=== PATIENT | male | born 1960 | race Caucasian/White ===

== ENCOUNTER 2018-06-14 09:50 | Inpatient (IN) | payer SELFPAY ==
[2018-06-14] VITALS (32 sets, daily range): BP systolic 66–149; BP diastolic 47–98; PULSE 84–151; RESP 18–27; TEMP 36.3–37.4; O2SAT 94–99; BMI 50.0; BMI 35.8
--- NOTE | 2018-06-14 10:01 | EKG12_ITS ---
Test Reason : SOB Blood Pressure : / mmHG Vent. Rate : 163 BPM Atrial Rate : 170 BPM P-R Int : 000 ms QRS Dur : 102 ms QT Int : 306 ms P-R-T Axes : 000 -09 111 degrees QTc Int : 503 ms Atrial fibrillation with rapid ventricular response with premature ventricular or aberrantly conducte d complexes Cannot rule out Inferior infarct , age undetermined Anterior infarct , age undetermined Abnormal ECG Confirmed by CAMERON CONN, ZEYAD ([id number]), slot editor ANA MARIA FOX ([id number] on 06/16/2018 3:22:01 PM Referred By: Elias Stein Confirmed By:ZEYAD BARNES MD
--- NOTE | 2018-06-14 10:10 | ED.VISSUMM ---
- ER Visit Summary Date of Service: 06/14/18 Chief Complaint: Shortness of breath History of Present Illness: The patient is a 57 M history of CAD with 4 cardiac stents. Prior [place]. Insulin-dependent diabetes but is out of insulin. History of hypertension. Patient states the last 3 days he has had increasing shortness of breath and swelling of his lower extremities. Subjective fever and chills. Denies any nausea, vomiting or diarrhea. No melena. He currently has no primary care physician locally is supposed to be on a host of medications and is on none of them. States he is never been in A. fib before. Physical Examination: Middle-aged male. Vital signs 149/90. Heart rate of 151 and irregular. On the monitor when I am in the room his heart rates 1. Pulse ox 96% on room air no hypoxia. H EENT exam unremarkable. Neck nontender. No JVD. Lungs clear to auscultation bilaterally. Heart irregularly irregular rate of 161 no murmur. Cardiac exam consistent with A. fib RVR. Abdomen soft nontender. Mild edema. Patient moves all 4 extremities. Normal motor strength. He has 2+ pitting edema both lower extremities. Neurologically is awake and alert. With no focal motor deficits. Test Results: EKG A. fib RVR rate of 163. Chest x-ray shows cardiomegaly with CHF and bilateral pleural effusions. CBC shows a white count of 5. Hemoglobin 14. Low platelet count of 114,000. Lites unremarkable creatinine 1.47. PT/INR normal. Troponin slightly elevated 0.129. And TSH is elevated at 4.59. Emergency Department Course and Treatment: Patient had new onset A. fib RVR. Treatment Plan: Initially given IV Cardizem which is decreased his heart rate but it still above 120. He will be given a second dose of Cardizem and most likely be started on a Cardizem drip. He will also be given IV Lasix for his congestive heart failure. I have already spoken to the hospitalist about the PCU admission. Repeat exam patient is resting comfortably. Disposition: Admitted Impression: Acute dyspnea New onset A. fib RVR Acute congestive heart failure and bilateral pleural effusions. Thrombocytopenia. Abnormal troponin Elevated TSH needs further evaluation History of prior [place] with 4 cardiac stents. This note was generated with [employer] software. It may contain incorrect words, spelling, and punctuation that were not noted in review of the chart prior to signing ED Disposition - Plan for ED Patient: Chief Complaint: Shortness of Breath Referrals: NOT,DEFINED [NON-STAFF] -
--- NOTE | 2018-06-14 10:13 | ED.DCSUM_ITS ---
- ER Visit Summary Date of Service: 06/14/18 Chief Complaint: Shortness of breath History of Present Illness: The patient is a 57 M history of CAD with 4 cardiac stents. Prior [place]. Insulin-dependent diabetes but is out of insulin. History of hypertension. Patient states the last 3 days he has had increasing shortness of breath and swelling of his lower extremities. Subjective fever and chills. Denies any nausea, vomiting or diarrhea. No melena. He currently has no primary care physician locally is supposed to be on a host of medications and is on none of them. States he is never been in A. fib before. Physical Examination: Middle-aged male. Vital signs 149/90. Heart rate of 151 and irregular. On the monitor when I am in the room his heart rates 1. Pulse ox 96% on room air no hypoxia. H EENT exam unremarkable. Neck nontender. No JVD. Lungs clear to auscultation bilaterally. Heart irregularly irregular rate of 161 no murmur. Cardiac exam consistent with A. fib RVR. Abdomen soft nontender. Mild edema. Patient moves all 4 extremities. Normal motor stre ngth. He has 2+ pitting edema both lower extremities. Neurologically is awake and alert. With no focal motor deficits. Test Results: EKG A. fib RVR rate of 163. Chest x-ray shows cardiomegaly with CHF and bilateral pleural effusions. CBC shows a white count of 5. Hemoglobin 14. Low platelet count of 114,000. Lites unremarkable creatinine 1.47. PT/INR normal. Troponin slightly elevated 0.129. And TSH is elevated at 4.59. Emergency Department Course and Treatment: Patient had new onset A. fib RVR. Treatment Plan: Initially given IV Cardizem which is decreased his heart rate but it still above 120. He will be given a second dose of Cardizem and most likely be started on a Cardizem drip. He will also be given IV Lasix for his congestive heart failure. I have already spoken to the hospitalist about the PCU admission. Repeat exam patient is resting comfortably. Disposition: Admitted Impression: Acute dyspnea New onset A. fib RVR Acute congestive heart failure and bilateral pleural effusions. Thrombocytopenia. Abnormal troponin Elevated TSH needs further evaluation History of prior [place] with 4 cardiac stents. This note was generated with [employer] software. It may contain incorrect words, spelling, and punctuation that were not noted in review of the chart prior to signing ED Disposition - Plan for ED Patient: Chief Complaint: Shortness of Breath Referrals: NOT,DEFINED [NON-STAFF] -
--- NOTE | 2018-06-14 10:22 | ED.RN ---
pt states he is supposed to be on meds for dm and heart attack. does not know meds or doses. no current pcp.
[2018-06-14] MEDS: dilTIAZem 25 MG/5 ML Vial IV BOLUS (10:23)
[2018-06-14 10:25] LABS: Absolute Lymphocyte Count 0.64 X10^3/ul (0.83-4.51); Absolute Neutrophil Count 3.7 X10^3/uL (2.0-7.7); Basophil# 0.02 X10^3/uL; Basophil% 0.4 % (0-1); Eosinophil# 0.01 X10^3/uL; Eosinophils% 0.2 % (0-5); Hemoglobin 14.6 g/dl (13.0-16.5); Lymphocyte # 0.64 X10^3/ul (4.0); Lymphocyte % 12.9 % (19-41); Mean Corp Hgb Conc 33.2 g/gl (32-36); Mean Corpuscular Hgb 31.3 pg (27.0-32.0); Mean Corpuscular Volume 94.4 fL (80-94); Mean Platelet Vol. 9.5 fl (6.2-12.0); Monocyte# 0.62 X10^3/uL; Monocyte% 12.5 % (0-10); Neutrophil # 3.67 X10^3/uL (2.7-7.7); Neutrophil % 73.8 % (47-70); Platelet Count 114 K/mm3 (150-450); RBC Distribution Width SD 46.4 fl (35.1-43.9); Red Blood Count 4.66 M/mm3 (4.6-6.2)
[2018-06-14 10:27] LABS: POSITIVE COUNT NO; POSITIVE DIFFERENTIAL NO; POSITIVE MORPHOLOGY NO
[2018-06-14 10:30] LABS: International Normalized Ratio 1.2
--- NOTE | 2018-06-14 10:35 | RAD_ITS ---
STUDY: X-RAY CHEST REASON FOR EXAM: Male, 57 years old. Chest pain. TECHNIQUE: Single AP portable view of the chest. COMPARISON: None. FINDINGS: EKG electrodes are seen. A loop recorder device is seen overlying the medial left hemithorax. There are small bilateral pleural effusions with bibasilar atelectasis superimposed on CHF. There is borderline cardiomegaly. Normal mediastinum and aniceto. Normal visualized pulmonary arteries. Normal visualized aortic arch and descending thoracic aorta. Normal visualized thoracic spine. Normal visualized ribs, clavicles, and shoulders. There is no demonstrated abnormality of the visualized soft tissue structures of the upper abdomen. RAD/Chest 1 View (Portable) IMPRESSION: Small bilateral pleural effusions with bibasilar atelectasis superimposed on mild degree of CHF. Electronically Signed: Frantz Gaviria MD at 10:49 EST Tel [phone], Service support ,
[2018-06-14 10:46] LABS: Anion Gap 13 (5-15); BUN 18 mg/dL (7-18); BUN/Creat Ratio 12.2 RATIO (10-20); Calcium,Total 7.9 mg/dL (8.5-10.1); Chloride 97 mmol/L (98-107); Creatinine, Serum 1.47 mg/dL (0.70-1.30); EST Glomerular Filtration Rate 52 mL/min (>60); Est Glom Filt Rate - Afr Amer 63 mL/min (>60); Estimated Creatinine Clearance 50.03 ml/min; Glucose 154 mg/dL (74-106); Potassium 4.1 mmol/L (3.5-5.1); Sodium Level 135 mmol/L (136-145); Thyroid Stim Hormone (TSH) 4.59 uIU/mL (0.358-3.74)
[2018-06-14] MEDS: dilTIAZem 25 MG/5 ML Vial 20 MG IV BOLUS (11:08)
[2018-06-14] MEDS: Furosemide 40 MG/4 ML Vial IV ×3 (11:26→21:15)
--- NOTE | 2018-06-14 13:31 | ED.RN ---
PT HAD DARK STOOL SMALL AMOUNT, DR. SETH AWARE AND PCU NOTIFIED OF SAME.
--- NOTE | 2018-06-14 13:39 | ECHOCS_ITS ---
Reason For Study: CHF Procedure This was a 2D Doppler, Color Flow transthoracic echocardiogram. The study was technically difficult. Contrast injection was performed. Exam performed portable in patient room. Left Ventricle Severely dilated left ventricle. The estimated ejection fraction is 15 %. Unable to assess diastolic dysfunction due to arrhythmia. There is severe global hypokinesis of the left ventricle. Right Ventricle Normal RV size. Normal systolic function. Atria The left atrium is mildly enlarged. The right atrium is mildly enlarged. Mitral Valve Normal mitral valve. Moderate (2+) eccentric mitral valve insufficiency. Tricuspid Valve Normal tricuspid valve. Mild to moderate (1-2+) tricuspid valve insufficiency. Pulmonary artery systolic pressure is 29 mmHg. Aortic Valve Trisinus/trileaflet aortic valve. Pulmonic Valve Normal pulmonic valve. Great Vessels Normal aortic root. The pulmonary artery is normal size. Normal inferior vena cava. Pericardium/Pleural No pericardial effusion. Medication Definity0.5ml given slow IV push to enhance endocardial definition. MMode/2D Measurements & Calculations LVIDd: 6.3 cm IVSd: 1.1 cm Ao root diam: 3.3 cm LVIDs: 5.9 cm LVPWd: 1.1 cm RVDd: 5.2 cm FS: 6.5 % LAV(MOD-bp): 73.0 ml LVAd ap4: 47.6 cm2 SV(MOD-sp4): 34.4 ml LAV(MOD-bp) Indexed: 30.3 ml/m2 EDV(MOD-sp4): 191.8 ml LAV(MOD-sp2): 60.6 ml EDV(sp4-el): 200.8 ml LAV(MOD-sp4): 70.3 ml LVAs ap4: 41.9 cm2 ESV(MOD-sp4): 157.4 ml ESV(sp4-el): 160.4 ml EF(MOD-sp4): 17.9 % EF(sp4-el): 20.1 % SV(sp4-el): 40.4 ml LA A4 area: 22.6 cm2 LA dimension(2D): 4.8 cm RA A4 area: 21.4 cm2 Doppler Measurements & Calculations MV E max edouard: 102.1 cm/sec Ao V2 max: 102.1 cm/sec LV V1 max: 75.7 cm/sec Ao max P.3 mmHg LV V1 max P.4 mmHg Ao V2 mean: 75.1 cm/sec Ao mean P.6 mmHg Ao V2 VTI: 14.9 cm PA V2 max: 65.1 cm/sec TR max edouard: 256.4 cm/sec TR max P.3 mmHg Interpretation Summary Severely dilated left ventricle. The estimated ejection fraction is 15 %. Unable to assess diastolic dysfunction due to arrhythmia. The left atrium is mildly enlarged. The right atrium is mildly enlarged. Moderate (2+) eccentric mitral valve insufficiency. Ordering Physician: Elias Stein Referring Physician: Elias Stein Performed By: Marielos Torre, LONNIE, RVT
[2018-06-14 14:33] LABS: T4 Free Direct 1.08 ng/dL (0.76-1.46)
[2018-06-14] MEDS: dilTIAZem 25 MG/5 ML Vial 10 MG IV BOLUS (15:04)
[2018-06-14] MEDS: Lisinopril 10 MG Tablet PO (16:15)
[2018-06-14 17:10] LABS: Bedside Glucose 170 mg/dL (70-110)
--- NOTE | 2018-06-14 17:14 | PCM.CONS.C ---
Reason for Consult Date of Consultation: 06/14/18 Reason for Consultation: Evaluation of shortness of breath. Pedal edema. Irregular heartbeat. History of Present Illness: The patient is a 57 year old M with a history of hypertension, coronary artery disease status post previous myocardial infarction and status post previous stenting in [place] over 4 years ago. He says that he has not seen a physician since then. He had been fairly stable until he started noticing pedal edema as well as shortness of breath. He did not have any palpitations and denies any chest pain. He was also gaining weight and could not get any restful sleep at night. He presented to the emergency room was noted to be in atrial for ablation with a rapid ventricular response rate as well as pedal edema. He was admitted to the telemetry care unit after he received intravenous Cardizem for rate control. He has not noticed any previous episodes of hematemesis or hematochezia though he was noted to have dark brown stools in the emergency room. Cardiology was called to see him due to his previous history of coronary artery disease, mildly abnormal troponin, pedal edema, and atrial fibrillation. [] Past Medical History Allergies/Adverse Reactions: Allergies Penicillins [PCN] Allergy (Verified 06/14/18 10:19) Rash Home Medications: Ambulatory Orders Medication Instructions Recorded NK 06/14/18 Lives: Alone Smoking Status: Former smoker Alcohol: None Drugs: None Review of Systems - Review of Systems General: Reports: Fatigue, Weakness. Denies: Fever, Night Sweats HEENT: Denies: Vision Change Cardiovascular: Reports: Shortness of Breath, Shortness of Breath at Rest, Shortness of Breath with Exertion, Peripheral Edema. Denies: Chest Discomfort, Orthopnea, PND, Palpitations, Lightheadedness, Dizziness, Near Syncope, Syncope Respiratory: Denies: Cough, Sputum Production, Hemoptysis Gastrointestinal: Denies: Indigestion, Hematemesis, Hematochezia, Melena Genitourinary: Denies: Dysuria, Hematuria Muscoloskeletal: Denies: Myalgias Skin: Denies: Rash Neurological: Denies: Dizziness Psychiatric: Denies: Anxiety Hematologic/ Lymphatic: Denies: Lymph Node Enlargement Subjectve: Pleasant gentleman in no apparent distress. Sitting in bed. Objective: Vital Signs Temp Pulse Resp BP Pulse Ox 98.2 F 109 H 22 H 112/86 H 98 06/14/18 16:40 06/14/18 16:40 06/14/18 16:40 06/14/18 16:40 06/14/18 16:40 Oxygen Flow Rate (L/min) 2 Oxygen Delivery Method Nasal Cannula Weight: 310 lb Body Mass Index (BMI) 35.8 General: Awake, Alert, Oriented x 3, Obese HEENT: PERRL, EOMI, Sclera Non Icteric Oral: Moist Mucosa Neck: Supple, Good ROM, No Lymph Node Enlargement Lungs: Diminished Gamaliel Bases Cardiovascular: Irregular Rhythm Vascular: No Carotid Bruits, Normal Femoral Pulses, Normal Radial Pulses, Normal Dorsalis Pedal Pulse, Normal Posterior Tibial Pulses Abdomen: Bowel Sounds Present, Soft, Non Tender, No HSM, No Organomegaly Extremities: No Cyanosis, No Clubbing, Bilateral Edema +2 Musculoskeletal: No Erythema Skin: No Rashes Lymphatic: No Lymph Node Enlargement Neurological: No Focal Motor or Sensory Deficit Psych/Mental Status: Appropriate 06/14/18 10:12: WBC 5.0, RBC 4.66, Hgb 14.6, Hct 44.0, MCV 94.4 H, MCH 31.3, MCHC 33.2, RDW 14.0, RDW Differential 46.4 H, Plt Count 114 L, MPV 9.5, Immature Gran % (Auto) 0.200, Neut % (Auto) 73.8 H, Lymph % (Auto) 12.9 L, Camp % (Auto) 12.5 H, Eos % (Auto) 0.2, Baso % (Auto) 0.4, Absolute Neuts (auto) 3.7, Total Counted Not Reportable 06/14/18 10:12: Sodium 135 L, Potassium 4.1, Chloride 97 L, Carbon Dioxide 25.0, Anion Gap 13, BUN 18, Creatinine 1.47 H, Est GFR (MDRD) Af Amer 63, Est GFR (MDRD) Non-Af 52 L, BUN/Creatinine Ratio 12.2, Glucose 154 H, Calcium 7.9 L, Troponin I 0.129 H 06/14/18 10:12: PT 15.0 H, INR 1.2 06/14/18 14:04: Troponin I 0.133 H Rhythm: EKG: Atrial fibrillation with rapid ventricular response rate of 163 bpm ECHO: Pending Assessment/Plan 1. Atrial fibrillation Patient presents with atrial fibrillation the duration of which is not entirely clear at this particular time. He does have rapid ventricular response rate. The recommendation will be to start intravenous Cardizem for rate control Echocardiogram should be performed to assess his left ventricular function and guide therapy. He cannot be anticoagulated due to his heme positive stools. 2. Congestive heart failure-acute systolic He appears to have shortness of breath which is been fairly short standing associated with pedal edema. The above is consistent with acute congestive heart failure. My recommendation will be to diurese him aggressively and obtain an echocardiogram to assess his left ventricular function. He would ultimately need a beta-brayan and an JAMES inhibitor Depending on the findings of the above further recommendations will then be made. 3. Abnormal cardiac enzymes He does have mildly abnormal cardiac enzymes. I suspect the above is likely secondary to demand ischemia. We will eventually convert him to a beta-brayan Start high intensity statin Will have to hold off on aspirin as well as clopidogrel due to his apparent history of GI bleed Thank you for allowing me to participate in the care of your patient. Please don't hesitate to call if any issues arise
--- NOTE | 2018-06-14 17:18 | CON.PCM_ITS ---
Reason for Consult Date of Consultation: 06/14/18 Reason for Consultation: Evaluation of shortness of breath. Pedal edema. Irregular heartbeat. History of Present Illness: The patient is a 57 year old M with a history of hypertension, coronary artery disease status post previous myocardial infarction and status post previous stenting in [place] over 4 years ago. He says that he has not seen a physician since then. He had been fairly stable until he started noticing pedal edema as well as shortness of breath. He did not have any palpitations and denies any chest pain. He was also gaining weight and could not get any restful sleep at night. He presented to the emergency room was noted to be in atrial for ablation with a rapid ventricular response rate as well as pedal edema. He was admitted to the telemetry care unit after he received intravenous Cardizem for rate control. He has not noticed any previous episodes of hematemesis or hematochezia though he was noted to have dark brown stools in the emergency room. Cardiology was called to see him due to his previous history of coronary artery disease, mildly abnormal troponin, pedal edema, and atrial fibrillation. [] Past Medical History Allergies/Adverse Reactions: Allergies Penicillins [PCN] Allergy (Verified 06/14/18 10:19) Rash Home Medications: Ambulatory Orders Medication Instructions Recorded NK 06/14/18 Lives: Alone Smoking Status: Former smoker Alcohol: None Drugs: None Review of Systems - Review of Systems General: Reports: Fatigue, Weakness. Denies: Fever, Night Sweats HEENT: Denies: Vision Change Cardiovascular: Reports: Shortness of Breath, Shortness of Breath at Rest, Shortness of Breath with Exertion, Peripheral Edema. Denies: Chest Discomfort, Orthopnea, PND, Palpitations, Lightheadedness, Dizziness, Near Syncope, Syncope Respiratory: Denies: Cough, Sputum Production, Hemoptysis Gastrointestinal: Denies: Indigestion, Hematemesis, Hematochezia, Melena Genitourinary: Denies: Dysuria, Hematuria Muscoloskeletal: Denies: Myalgias Skin: Denies: Rash Neurological: Denies: Dizziness Psychiatric: Denies: Anxiety Hematologic/ Lymphatic: Denies: Lymph Node Enlargement Subjectve: Pleasant gentleman in no apparent distress. Sitting in bed. Objective: Vital Signs Temp Pulse Resp BP Pulse Ox 98.2 F 109 H 22 H 112/86 H 98 06/14/18 16:40 06/14/18 16:40 06/14/18 16:40 06/14/18 16:40 06/14/18 16:40 Oxygen Flow Rate (L/min) 2 Oxygen Delivery Method Nasal Cannula Weight: 310 lb Body Mass Index (BMI) 35.8 General: Awake, Alert, Oriented x 3, Obese HEENT: PERRL, EOMI, Sclera Non Icteric Oral: Moist Mucosa Neck: Supple, Good ROM, No Lymph Node Enlargement Lungs: Diminished Gamaliel Bases Cardiovascular: Irregular Rhythm Vascular: No Carotid Bruits, Normal Femoral Pulses, Normal Radial Pulses, Normal Dorsalis Pedal Pulse, Normal Posterior Tibial Pulses Abdomen: Bowel Sounds Present, Soft, Non Tender, No HSM, No Organomegaly Extremities: No Cyanosis, No Clubbing, Bilateral Edema +2 Musculoskeletal: No Erythema Skin: No Rashes Lymphatic: No Lymph Node Enlargement Neurological: No Focal Motor or Sensory Deficit Psych/Mental Status: Appropriate 06/14/18 10:12: WBC 5.0, RBC 4.66, Hgb 14.6, Hct 44.0, MCV 94.4 H, MCH 31.3, MCHC 33.2, RDW 14.0, RDW Differential 46.4 H, Plt Count 114 L, MPV 9.5, Immature Gran % (Auto) 0.200, Neut % (Auto) 73.8 H, Lymph % (Auto) 12.9 L, Dewitt % (Auto) 12.5 H, Eos % (Auto) 0.2, Baso % (Auto) 0.4, Absolute Neuts (auto) 3.7, Total Counted Not Reportable 06/14/18 10:12: Sodium 135 L, Potassium 4.1, Chloride 97 L, Carbon Dioxide 25.0, Anion Gap 13, BUN 18, Creatinine 1.47 H, Est GFR (MDRD) Af Amer 63, Est GFR (MDRD) Non-Af 52 L, BUN/Creatinine Ratio 12.2, Glucose 154 H, Calcium 7.9 L, Troponin I 0.129 H 06/14/18 10:12: PT 15.0 H, INR 1.2 06/14/18 14:04: Troponin I 0.133 H Rhythm: EKG: Atrial fibrillation with rapid ventricular response rate of 163 bpm ECHO: Pending Assessment/Plan 1. Atrial fibrillation * Patient presents with atrial fibrillation the duration of which is not entirely clear at this particular time. He does have rapid ventricular response rate. * The recommendation will be to start intravenous Cardizem for rate control * Echocardiogram should be performed to assess his left ventricular function and guide therapy. * He cannot be anticoagulated due to his heme positive stools. 2. Congestive heart failure-acute systolic * He appears to have shortness of breath which is been fairly short standing associated with pedal edema. The above is consistent with acute congestive heart failure. My recommendation will be to diurese him aggressively and obtain an echocardiogram to assess his left ventricular function. * He would ultimately need a beta-brayan and an JAMES inhibitor * Depending on the findings of the above further recommendations will then be made. 3. Abnormal cardiac enzymes * He does have mildly abnormal cardiac enzymes. I suspect the above is likely secondary to demand ischemia. * We will eventually convert him to a beta-brayan * Start high intensity statin * Will have to hold off on aspirin as well as clopidogrel due to his apparent history of GI bleed * Thank you for allowing me to participate in the care of your patient. Please don't hesitate to call if any issues arise
[2018-06-14] MEDS: Insulin Lispro 100 UNIT/ML INSULN.PEN SC ×2 (18:06→21:14)
--- NOTE | 2018-06-14 18:55 | PCM.HP.STD ---
Problem List (1) Shortness of breath Status: Acute (2) Heart palpitations Status: Acute History of Present Illness Date of Admission: 06/14/18 Chief Complaint: Palpitations, shortness of breath, edema The patient is a 57 year old M was seen in the emergency room at [facility] with a chief complaint of shortness of breath which has progressed over the last 3 days, this was accompanied by an irregular heartbeat and generalized swelling that he is noticed has increased over the last 2 months. Patient also stated that 3 days ago he had some chest discomfort which lasted approximately an hour but he was vague about what precipitated this chest discomfort. He stated that it was like a ache and it radiated into his right shoulder and right chest area. Patient has a past history of coronary artery disease and in 2006 he had 4 stents placed in [place]. Patient also has a history of an event recorder which was placed in 2007 but this was removed subsequently. He has not been compliant with follow-up medical care and has not seen a dining room busser in several years, is also not seen a general practitioner in several years-he states this is due to financial reasons. Patient has been living in [place] for the past 2 years, his [id number] was present at the time of my examination. Evaluation in the emergency room feel the patient to be in atrial fib with a rapid ventricular response at 151, patient's pulse ox on room air was 96%. Patient had +3 pitting edema to both lower extremities, he was alert and did not appear to be in severe distress. Chest x-ray was obtained which showed cardiomegaly and CHF with bilateral pleural effusions. Hemoglobin was normal, patient's white blood cell count was normal, platelet count was 114,000. Creatinine was elevated at 1.47, troponin was slightly elevated at 1.29. TSH was elevated at 4.59. EKG showed atrial fibrillation with a rapid ventricular response of 163 and no ischemic changes. She was given IV Cardizem for rate control in the emergency room, before he was admitted to the PCU today, patient had a melanotic stool which was positive for blood. Patient will be kept on IV Cardizem and be seen by cardiology, he will not be anticoagulated at this time and he will not receive aspirin. Patient's cardiac enzymes will be cycled, I will place him on IV Lasix, and JAMES inhibitor, and repeat his chest x-ray tomorrow. Past Medical History Allergies Penicillins [PCN] Allergy (Verified 06/14/18 10:19) Rash Home Medications: Ambulatory Orders Medication Instructions Recorded NK 06/14/18 Surgical History: appendectomy, tonsillectomy, - - Coronary artery stent placement 2006, left knee reconstruction secondary to injury from football Psychiatric History: No pertinent psych hx Lives: With Family Smoking Status: Former smoker Tobacco Use: Non-smoker Alcohol: Occasional Drugs: None - *Family History Maternal History Items: Cancer - Stomach cancer, Diabetes Paternal History Items: Heart Disease - [place] age 58 Review of Systems Constitutional: Reports: Malaise, Weakness, Weight Change, Fatigue. Denies: Anorexia, Chills, Fever, Night Sweats Eyes: Denies: Blurred vision, Cataracts, Conjunctivae Inflammation, Double vision, Drainage HEENT: Denies: Difficulty Swallowing, Dysphasia, Ear Pain, Eye Pain, Head Aches, Hearing Changes, Nasal bleeding, Nasal Congestion, Post Nasal Drip Cardiovascular: Reports: Chest Pain - History of chest pain 3 days ago as outlined in chief complaint, Edema - Increased edema over the last 2 months, Orthopnea, Palpitations, Paroxysmal Noc. Dyspnea. Denies: Claudication, Chest Pressure, Chest Tightness Respiratory: Reports: Shortness of Breath, Shortness of breath at rest, Shortness of breath upon exertion. Denies: Cough, Hemoptysis, Pleuritic Pain, Sputum production, Wheezing Gastrointestinal: Denies: Abdominal Pain, Constipation, Diarrhea, Hematemesis, Hematochezia, Nausea, Melena, Vomiting Genitourinary: Denies: Dysuria, Frequency, Hematuria, Hesitancy, Incontinence, Nocturia, Urgency Musculoskeletal: Denies: Back Pain, Foot Pain, Hand Pain, Joint Pain, Joint stiffness, Joint swelling, Joint Tenderness, Leg Pain Skin: Denies: Dryness, Jaundice, Pruritis, Rash Neurological: Denies: Blurred vision, Double vision, Change in Speech, Slurred speech, Difficulty swallowing, Focal weakness, Headaches, Numbness, Tingling Psychiatric: Denies: Anxiety, Depression, Homicidal Ideations, Suicidal Ideations Endocrine: Denies: Change in Body Habitus, Heat/ Cold Intolerance, Polydipsia, Polyuria Hematologic/ Lymphatic: Denies: Adenopathy, Anemia, Easy Bruising, Easy Bleeding, Petechiae, Purpura VTE Information - Inpt Only VTE Present on Admission: No VTE Mechan Device Prophylaxis: SCD's VTE Pharm Prophylaxis ordered?: No Reason prophylaxis not ordered:: Medical Contraindication - Melanotic stools Patient Problems: Active and Suspected Problems Shortness of breath (Acute) Heart palpitations (Acute) - Physical Exam General: Alert, Oriented x3, Cooperative, No apparent distress, Well developed, Well nourished HEENT: Atraumatic, PERRLA, EOMI, Normocephalic Oral: Moist Mucosa Neck: Supple, No JVD, Negative Carotid Bruits, No Nuchal Rigidity, Trachea Midline, Thyroid Normal Size and Texture Lungs: No rhonchi, No rales, Diminished - Diminished breath sounds bilaterally Cardiovascular: No murmurs, PMI Normal, Irregular Rate, No rub noted Abdomen: Bowel Sounds Present, Soft, Non Tender, Non-Distended, Obese Extremities: Capillary Refill Less than 3 Seconds, Edema - +3 mm pitting edema is noted over both lower legs Skin: No rashes, No breakdown Musculoskeletal: No Tenderness to Palpation of Joints or Extremities Neurological: Cranial nerves II-XII grossly intact, Neuro grossly intact, Muscle tone normal, Sensory exam intact to light touch and pain, Coordination normal Psych/Mental Status: Normal Affect, Appropriate, Alert and oriented to time, place, person, mood and affect Vital Signs Temp Pulse Resp BP Pulse Ox 98.3 F 98 23 H 100/67 96 06/14/18 18:40 06/14/18 18:40 06/14/18 18:40 06/14/18 18:40 06/14/18 18:40 Oxygen Flow Rate (L/min) 2 Oxygen Delivery Method Nasal Cannula Weight: 140.614 kg Body Mass Index (BMI) 35.8 Intake and Output for Last 24 Hours 06/12/18 06/13/18 06/14/18 23:59 23:59 23:59 Intake Total 470 / 470 Output Total 200 / 200 Balance 270 / 270 Microbiology Past 72 Hours 06/14/18 13:30 Stool Occult Blood (CONG) - Final Stool Occult Blood Positive Laboratory Tests Past 24 Hrs 06/14/18 06/14/18 06/14/18 10:12 10:12 10:12 WBC 5.0 RBC 4.66 Hgb 14.6 Hct 44.0 MCV 94.4 H MCH 31.3 MCHC 33.2 RDW 14.0 RDW Differential 46.4 H Plt Count 114 L MPV 9.5 Immature Gran % (Auto) 0.200 Neut % (Auto) 73.8 H Lymph % (Auto) 12.9 L Ray % (Auto) 12.5 H Eos % (Auto) 0.2 Baso % (Auto) 0.4 Absolute Neuts (auto) 3.7 Absolute Lymphs (auto) 0.64 L Total Counted Not Reportable PT 15.0 H INR 1.2 Sodium 135 L Potassium 4.1 Chloride 97 L Carbon Dioxide 25.0 Anion Gap 13 BUN 18 Creatinine 1.47 H Estim Creat Clear Calc 50.03 Est GFR (MDRD) Af Amer 63 Est GFR (MDRD) Non-Af 52 L BUN/Creatinine Ratio 12.2 Glucose 154 H Calcium 7.9 L Troponin I 0.129 H TSH 4.59 H Free T4 Free T3 pg/dL 06/14/18 06/14/18 14:04 16:40 WBC RBC Hgb Hct MCV MCH MCHC RDW RDW Differential Plt Count MPV Immature Gran % (Auto) Neut % (Auto) Lymph % (Auto) Ray % (Auto) Eos % (Auto) Baso % (Auto) Absolute Neuts (auto) Absolute Lymphs (auto) Total Counted PT INR Sodium Potassium Chloride Carbon Dioxide Anion Gap BUN Creatinine Estim Creat Clear Calc Est GFR (MDRD) Af Amer Est GFR (MDRD) Non-Af BUN/Creatinine Ratio Glucose Calcium Troponin I 0.133 H 0.138 H TSH Free T4 1.08 Free T3 pg/dL 2.0 L POC Glucose 06/14/18 17:06 POC Glucose 170 H Assessment/Plan All Active Problems Shortness of breath (Acute) Heart palpitations (Acute) #1 new onset atrial fibrillation with rapid ventricular response-patient will be admitted to PCU, he will be maintained on a Cardizem drip, he would be seen by cardiology, he will be monitored. Patient will not undergo anticoagulation at this time due to melanotic stools #2 acute systolic congestive heart failure-patient's son who I talked with by phone states that the patient has had impaired pumping function before but he would not give me a percentage, patient will have an echocardiogram tomorrow. I contacted his former dining room busser office but he has not seen his dining room busser in 11 years, they were supposed to be forwarding information to PCU however this will probably of minimal use. #3 melena-suspect upper GI bleed, patient takes aspirin 325 a day, it is the only medication currently takes. Patient will be maintained on a PPI, he will probably require an EGD or an upper GI during this admission. H&H will be rechecked #4 atherosclerotic heart disease-again patient has not been taking any medications except for aspirin over the last 2 years. He may require cardiac catheterization but due to his melena, the procedure cannot be undertaken at this time. #5 elevated troponins-possibly non-STEMI type II #6 noncompliance with medical regimen-I stressed to the patient that he must remain on medications due to his heart disease and diabetes, he seems to understand this #7 type 2 diabetes-patient was on metformin in the past, he has never been on insulin, will monitor his blood sugars and administer insulin as required #8 chronic kidney disease stage III probably secondary to type 2 diabetes, patient's BMP will be rechecked tomorrow #9 elevated TSH-significance is unknown, patient's T3 and T4 will be checked I discussed his medical condition with his son by phone and his [id number] who was present at the time of my examination today. Code Visit Inpatient E&M: 33270 Init Hosp L3
--- NOTE | 2018-06-14 19:01 | HP.PCM_ITS ---
Problem List (1) Shortness of breath Status: Acute (2) Heart palpitations Status: Acute History of Present Illness Date of Admission: 06/14/18 Chief Complaint: Palpitations, shortness of breath, edema The patient is a 57 year old M was seen in the emergency room at [facility] with a chief complaint of shortness of breath which has progressed over the last 3 days, this was accompanied by an irregular heartbeat and generalized swelling that he is noticed has increased over the last 2 months. Patient also stated that 3 days ago he had some chest discomfort which lasted approximately an hour but he was vague about what precipitated this chest discomfort. He stated that it was like a ache and it radiated into his right shoulder and right chest area. Patient has a past history of coronary artery disease and in 2006 he had 4 stents placed in [place]. Patient also has a history of an event recorder which was placed in 2007 but this was removed subsequently. He has not been compliant with follow-up medical care and has not seen a freight car loader in several years, is also not seen a general practitioner in several years-he states this is due to financial reasons. Patient has been living in [place] for the past 2 years, his [id number] was present at the time of my examination. Evaluation in the emergency room feel the patient to be in atrial fib with a rapid ventricular response at 151, patient's pulse ox on room air was 96%. Patient had +3 pitting edema to both lower extremities, he was alert and did not appear to be in severe distress. Chest x-ray was obtained which showed cardiomegaly and CHF with bilateral pleural effusions. Hemoglobin was normal, patient's white blood cell count was normal, platelet count was 114,000. Creatinine was elevated at 1.47, troponin was slightly elevated at 1.29. TSH was elevated at 4.59. EKG showed atrial fibrillation with a rapid ventricular response of 163 and no ischemic changes. She was given IV Cardizem for rate control in the emergency room, before he was admitted to the PCU today, patient had a melanotic stool which was positive for blood. Patient will be kept on IV Cardizem and be seen by cardiology, he will not be anticoagulated at this time and he will not receive aspirin. Patient's cardiac enzymes will be cycled, I will place him on IV Lasix, and JAMES inhibitor, and repeat his chest x-ray tomorrow. Past Medical History Allergies Penicillins [PCN] Allergy (Verified 06/14/18 10:19) Rash Home Medications: Ambulatory Orders Medication Instructions Recorded NK 06/14/18 Surgical History: appendectomy, tonsillectomy, - - Coronary artery stent placement 2006, left knee reconstruction secondary to injury from football Psychiatric History: No pertinent psych hx Lives: With Family Smoking Status: Former smoker Tobacco Use: Non-smoker Alcohol: Occasional Drugs: None - *Family History Maternal History Items: Cancer - Stomach cancer, Diabetes Paternal History Items: Heart Disease - [place] age 58 Review of Systems Constitutional: Reports: Malaise, Weakness, Weight Change, Fatigue. Denies: Anorexia, Chills, Fever, Night Sweats Eyes: Denies: Blurred vision, Cataracts, Conjunctivae Inflammation, Double vision, Drainage HEENT: Denies: Difficulty Swallowing, Dysphasia, Ear Pain, Eye Pain, Head Aches, Hearing Changes, Nasal bleeding, Nasal Congestion, Post Nasal Drip Cardiovascular: Reports: Chest Pain - History of chest pain 3 days ago as outlined in chief complaint, Edema - Increased edema over the last 2 months, Orthopnea, Palpitations, Paroxysmal Noc. Dyspnea. Denies: Claudication, Chest Pressure, Chest Tightness Respiratory: Reports: Shortness of Breath, Shortness of breath at rest, Shortness of breath upon exertion. Denies: Cough, Hemoptysis, Pleuritic Pain, Sputum production, Wheezing Gastrointestinal: Denies: Abdominal Pain, Constipation, Diarrhea, Hematemesis, Hematochezia, Nausea, Melena, Vomiting Genitourinary: Denies: Dysuria, Frequency, Hematuria, Hesitancy, Incontinence, Nocturia, Urgency Musculoskeletal: Denies: Back Pain, Foot Pain, Hand Pain, Joint Pain, Joint stiffness, Joint swelling, Joint Tenderness, Leg Pain Skin: Denies: Dryness, Jaundice, Pruritis, Rash Neurological: Denies: Blurred vision, Double vision, Change in Speech, Slurred speech, Difficulty swallowing, Focal weakness, Headaches, Numbness, Tingling Psychiatric: Denies: Anxiety, Depression, Homicidal Ideations, Suicidal Ideations Endocrine: Denies: Change in Body Habitus, Heat/ Cold Intolerance, Polydipsia, Polyuria Hematologic/ Lymphatic: Denies: Adenopathy, Anemia, Easy Bruising, Easy Bleeding, Petechiae, Purpura VTE Information - Inpt Only VTE Present on Admission: No VTE Mechan Device Prophylaxis: SCD's VTE Pharm Prophylaxis ordered?: No Reason prophylaxis not ordered:: Medical Contraindication - Melanotic stools Patient Problems: Active and Suspected Problems Shortness of breath (Acute) Heart palpitations (Acute) - Physical Exam General: Alert, Oriented x3, Cooperative, No apparent distress, Well developed, Well nourished HEENT: Atraumatic, PERRLA, EOMI, Normocephalic Oral: Moist Mucosa Neck: Supple, No JVD, Negative Carotid Bruits, No Nuchal Rigidity, Trachea Midline, Thyroid Normal Size and Texture Lungs: No rhonchi, No rales, Diminished - Diminished breath sounds bilaterally Cardiovascular: No murmurs, PMI Normal, Irregular Rate, No rub noted Abdomen: Bowel Sounds Present, Soft, Non Tender, Non-Distended, Obese Extremities: Capillary Refill Less than 3 Seconds, Edema - +3 mm pitting edema is noted over both lower legs Skin: No rashes, No breakdown Musculoskeletal: No Tenderness to Palpation of Joints or Extremities Neurological: Cranial nerves II-XII grossly intact, Neuro grossly intact, Muscle tone normal, Sensory exam intact to light touch and pain, Coordination normal Psych/Mental Status: Normal Affect, Appropriate, Alert and oriented to time, place, person, mood and affect Vital Signs Temp Pulse Resp BP Pulse Ox 98.3 F 98 23 H 100/67 96 06/14/18 18:40 06/14/18 18:40 06/14/18 18:40 06/14/18 18:40 06/14/18 18:40 Oxygen Flow Rate (L/min) 2 Oxygen Delivery Method Nasal Cannula Weight: 140.614 kg Body Mass Index (BMI) 35.8 Intake and Output for Last 24 Hours 06/12/18 06/13/18 06/14/18 23:59 23:59 23:59 Intake Total 470 / 470 Output Total 200 / 200 Balance 270 / 270 Microbiology Past 72 Hours 06/14/18 13:30 Stool Occult Blood (CONG) - Final Stool Occult Blood Positive Laboratory Tests Past 24 Hrs 06/14/18 06/14/18 06/14/18 10:12 10:12 10:12 WBC 5.0 RBC 4.66 Hgb 14.6 Hct 44.0 MCV 94.4 H MCH 31.3 MCHC 33.2 RDW 14.0 RDW Differential 46.4 H Plt Count 114 L MPV 9.5 Immature Gran % (Auto) 0.200 Neut % (Auto) 73.8 H Lymph % (Auto) 12.9 L [facility] % (Auto) 12.5 H Eos % (Auto) 0.2 Baso % (Auto) 0.4 Absolute Neuts (auto) 3.7 Absolute Lymphs (auto) 0.64 L Total Counted Not Reportable PT 15.0 H INR 1.2 Sodium 135 L Potassium 4.1 Chloride 97 L Carbon Dioxide 25.0 Anion Gap 13 BUN 18 Creatinine 1.47 H Estim Creat Clear Calc 50.03 Est GFR (MDRD) Af Amer 63 Est GFR (MDRD) Non-Af 52 L BUN/Creatinine Ratio 12.2 Glucose 154 H Calcium 7.9 L Troponin I 0.129 H TSH 4.59 H Free T4 Free T3 pg/dL 06/14/18 06/14/18 14:04 16:40 WBC RBC Hgb Hct MCV MCH MCHC RDW RDW Differential Plt Count MPV Immature Gran % (Auto) Neut % (Auto) Lymph % (Auto) [facility] % (Auto) Eos % (Auto) Baso % (Auto) Absolute Neuts (auto) Absolute Lymphs (auto) Total Counted PT INR Sodium Potassium Chloride Carbon Dioxide Anion Gap BUN Creatinine Estim Creat Clear Calc Est GFR (MDRD) Af Amer Est GFR (MDRD) Non-Af BUN/Creatinine Ratio Glucose Calcium Troponin I 0.133 H 0.138 H TSH Free T4 1.08 Free T3 pg/dL 2.0 L POC Glucose 06/14/18 17:06 POC Glucose 170 H Assessment/Plan All Active Problems Shortness of breath (Acute) Heart palpitations (Acute) #1 new onset atrial fibrillation with rapid ventricular response-patient will be admitted to PCU, he will be maintained on a Cardizem drip, he would be seen by cardiology, he will be monitored. Patient will not undergo anticoagulation at this time due to melanotic stools #2 acute systolic congestive heart failure-patient's son who I talked with by phone states that the patient has had impaired pumping function before but he would not give me a percentage, patient will have an echocardiogram tomorrow. I contacted his former freight car loader office but he has not seen his freight car loader in 11 years, they were supposed to be forwarding information to PCU however this will probably of minimal use. #3 melena-suspect upper GI bleed, patient takes aspirin 325 a day, it is the only medication currently takes. Patient will be maintained on a PPI, he will probably require an EGD or an upper GI during this admission. H&H will be rechecked #4 atherosclerotic heart disease-again patient has not been taking any medications except for aspirin over the last 2 years. He may require cardiac catheterization but due to his melena, the procedure cannot be undertaken at this time. #5 elevated troponins-possibly non-STEMI type II #6 noncompliance with medical regimen-I stressed to the patient that he must remain on medications due to his heart disease and diabetes, he seems to understand this #7 type 2 diabetes-patient was on metformin in the past, he has never been on insulin, will monitor his blood sugars and administer insulin as required #8 chronic kidney disease stage III probably secondary to type 2 diabetes, patient's BMP will be rechecked tomorrow #9 elevated TSH-significance is unknown, patient's T3 and T4 will be checked I discussed his medical condition with his son by phone and his [id number] who was present at the time of my examination today. Code Visit Inpatient E&M: 26755 Init Hosp L3
[2018-06-14] MEDS: Atorvastatin Calcium 40 MG Tablet PO (21:15)
[2018-06-14 22:15] LABS: Bedside Glucose 200 mg/dL (70-110)
[2018-06-14 22:33] LABS: Hematocrit 39.5 % (40-54); Hemoglobin 13.2 g/dl (13.0-16.5)
[2018-06-14 23:08] LABS: Magnesium 1.6 mg/dL (1.6-2.6)
[2018-06-15] VITALS (43 sets, daily range): BP systolic 63–129; BP diastolic 47–74; PULSE 63–148; RESP 16–28; TEMP 35.2–37; O2SAT 89–98
[2018-06-15] MEDS: dilTIAZem 60 MG Tablet PO (05:50)
--- NOTE | 2018-06-15 05:55 | RAD_ITS ---
STUDY: X-RAY CHEST REASON FOR EXAM: Male, 57 years old. CHF TECHNIQUE: 1 view COMPARISON: June 14, 2018 FINDINGS: There continues to be an implantable loop recorder over the left hemithorax. There is cardiomegaly with congestive failure, bilateral pleural effusions and compressive atelectatic changes in the lung bases. There has not been much change since yesterday's study.. Normal visualized thoracic spine. Normal visualized ribs, clavicles, and shoulders. There is no demonstrated abnormality of the visualized soft tissue structures of the upper abdomen. RAD/Chest 1 View (Portable) IMPRESSION: Cardiomegaly with congestive failure, bilateral pleural effusions and compressive atelectatic changes in the lung bases Electronically Signed: Ihsan Mccabe MD at 3:36 EST Tel , Service support ,
[2018-06-15 06:33] LABS: Hematocrit 40.1 % (40-54); Hemoglobin 13.2 g/dl (13.0-16.5)
[2018-06-15 06:41] LABS: Anion Gap 12 (5-15); BUN 25 mg/dL (7-18); BUN/Creat Ratio 14.3 RATIO (10-20); Calcium,Total 7.8 mg/dL (8.5-10.1); Chloride 99 mmol/L (98-107); Creatinine, Serum 1.75 mg/dL (0.70-1.30); EST Glomerular Filtration Rate 43 mL/min (>60); Est Glom Filt Rate - Afr Amer 52 mL/min (>60); Estimated Creatinine Clearance 60.21 ml/min; Glucose 143 mg/dL (74-106); Potassium 3.6 mmol/L (3.5-5.1); Sodium Level 137 mmol/L (136-145)
[2018-06-15 07:05] LABS: Bedside Glucose 161 mg/dL (70-110)
--- NOTE | 2018-06-15 07:29 | PN.CARD_ITS ---
Subjectve: Patient seen and evaluated. Appears to be doing better this morning. Objective: Vital Signs Temp Pulse Resp BP Pulse Ox 97.2 F L 91 19 H 100/70 92 06/15/18 05:10 06/15/18 06:00 06/15/18 06:00 06/15/18 06:00 06/15/18 06:00 Oxygen Flow Rate (L/min) 2 Oxygen Delivery Method Nasal Cannula Weight: 310 lb Body Mass Index (BMI) 35.8 Intake and Output for Last 24 Hours 06/13/18 06/14/18 06/15/18 23:59 23:59 23:59 Intake Total 901.5 / 901.5 543.6 / 543.6 Output Total 300 / 300 100 / 100 Balance 601.5 / 601.5 443.6 / 443.6 General: Awake, Alert, Oriented x 3 HEENT: PERRL, EOMI, Sclera Non Icteric Neck: Supple, Good ROM, No Lymph Node Enlargement Lungs: Clear to auscultation Cardiovascular: Irregular Rhythm, Normal S1, Normal S2, No Murmurs, No Rubs, No Gallops Vascular: No Carotid Bruits, Normal Femoral Pulses, Normal Radial Pulses, Normal Dorsalis Pedal Pulse, Normal Posterior Tibial Pulses Abdomen: Bowel Sounds Present, Soft, Non Tender, No HSM, No Organomegaly Extremities: No Cyanosis, No Clubbing, Bilateral Edema +1 Musculoskeletal: No Erythema Skin: No Rashes Neurological: No Focal Motor or Sensory Deficit 06/14/18 10:12: WBC 5.0, RBC 4.66, Hgb 14.6, Hct 44.0, MCV 94.4 H, MCH 31.3, MCHC 33.2, RDW 14.0, RDW Differential 46.4 H, Plt Count 114 L, MPV 9.5, Immature Gran % (Auto) 0.200, Neut % (Auto) 73.8 H, Lymph % (Auto) 12.9 L, [place] % (Auto) 12.5 H, Eos % (Auto) 0.2, Baso % (Auto) 0.4, Absolute Neuts (auto) 3.7, Total Counted Not Reportable 06/14/18 10:12: Sodium 135 L, Potassium 4.1, Chloride 97 L, Carbon Dioxide 25.0, Anion Gap 13, BUN 18, Creatinine 1.47 H, Est GFR (MDRD) Af Amer 63, Est GFR (MDRD) Non-Af 52 L, BUN/Creatinine Ratio 12.2, Glucose 154 H, Calcium 7.9 L, Troponin I 0.129 H 06/14/18 10:12: PT 15.0 H, INR 1.2 06/14/18 14:04: Troponin I 0.133 H 06/14/18 16:40: Troponin I 0.138 H 06/14/18 16:40: Potassium 4.0, Magnesium 1.6 06/14/18 22:24: Hgb 13.2, Hct 39.5 L 06/15/18 05:50: Sodium 137, Potassium 3.6, Chloride 99, Carbon Dioxide 26.0, Anion Gap 12, BUN 25 H, Creatinine 1.75 H, Est GFR (MDRD) Af Amer 52 L, Est GFR (MDRD) Non-Af 43 L, BUN/Creatinine Ratio 14.3, Glucose 143 H, Calcium 7.8 L 06/15/18 05:50: Hgb 13.2, Hct 40.1 Rhythm: EKG: ECHO: Stress Test: Cardiac Cath: PCI: CT Surgery: Holter monitor: EPS: PPM: CXR: Chest CT Scan: Medical Necessity - Tobacco Use Smoking Status: Former smoker Tobacco Use: Non-smoker Assessment/Plan 1. Atrial fibrillation * Patient presents with atrial fibrillation the duration of which is not entirely clear at this particular time. He does have rapid ventricular response rate. * The recommendation will be to use beta brayan rate control * Echocardiogram should be performed to assess his left ventricular function and guide therapy. * He cannot be anticoagulated due to his heme positive stools. 2. Congestive heart failure-acute systolic * He appears to have shortness of breath which is been fairly short standing associated with pedal edema. The above is consistent with acute congestive heart failure. My recommendation will be to diurese him aggressively and obta in an echocardiogram to assess his left ventricular function. * He would ultimately need a beta-brayan and an JAMES inhibitor as BP tolerates * Depending on the findings of the above further recommendations will then be made. 3. Abnormal cardiac enzymes * He does have mildly abnormal cardiac enzymes. I suspect the above is likely secondary to demand ischemia. * We will eventually convert him to a beta-brayan * Start high intensity statin * Will have to hold off on aspirin as well as clopidogrel due to his apparent history of GI bleed * Thank you for allowing me to participate in the care of your patient. Please don't hesitate to call if any issues arise
[2018-06-15] MEDS: Insulin Lispro 100 UNIT/ML INSULN.PEN SC ×4 (07:52→21:53)
[2018-06-15] MEDS: 0.9% NaCl Peripheral Flush Adult/Peds IV ×2 (09:30→14:23)
[2018-06-15] MEDS: Metoprolol Tartrate 50 MG Tablet PO ×2 (09:35→18:59)
[2018-06-15] MEDS: Pantoprazole Sodium 40 MG Tablet PO (09:35)
[2018-06-15] MEDS: Furosemide 20 MG/2 ML VIAL IV (09:35)
[2018-06-15 11:10] LABS: Bedside Glucose 162 mg/dL (70-110)
[2018-06-15] MEDS: Furosemide 100 MG/10 ML Vial 60 MG IV (14:24)
[2018-06-15] MEDS: Nystatin Powder 15gm Bottle 1 APPLIC TOPICAL ×2 (15:16→21:54)
--- NOTE | 2018-06-15 15:51 | CASEMGMT ---
SW met with patient, introduced self and role at [facility]. Patient's daughter in law was also present. Patient lives with his son and daughter in law in a 2 story home. He has no durable medical equipment. He is independent in all activities. He has a healthcare POA and he said it is his son, Petros. Patient said [employer] did a Medicaid application with him. SW gave patient and his daughter in law resources for [facility] as well as 2 websites that offer prescription assistance. SW told him SW will follow along for any d/c needs. Jeanette JACINTO MEDICAID BILLING CLERK
[2018-06-15 16:55] LABS: Bedside Glucose 167 mg/dL (70-110)
[2018-06-15] MEDS: Furosemide 500 MG in Empty Viaflex 50 mL 1 EACH CONT INF (17:47)
--- NOTE | 2018-06-15 19:06 | PCM.PROGNOTE ---
Patient Problems: Active and Suspected Problems Shortness of breath (Acute) Heart palpitations (Acute) Subjective: Patient was seen and examined today, I went over the results of his echocardiogram with him and his [id number] and son by phone. Patient's ejection fraction is 15%, his last echocardiogram we have record of was approximately 11 years ago-his ejection fraction at that time was 40-50%. It appears that at the time of his heart catheterization according to records that I had faxed over from [place], he had 2 stents placed in 2006 and at that time he had a 50% lesion in his circumflex artery. Patient also had a loop recorder implanted a year later after he suffered an episode of syncope. Patient still has a loop recorder. Patient's son states that the patient is adamant about being a DNR with no intubation and no resuscitation, he does want medical treatment if he can improve his health. I discussed this with the patient mariojoann and he confirmed that he wants to be a DNR CC arrest. Cardiology placed the patient on Lasix drip late this afternoon, he has had very little urine output despite my increase in his IV Lasix this morning, his systolic blood pressure is also been in the 90s this afternoon, earlier today the patient was placed on metoprolol for rate control. I received a phone call early this evening from his nurse who stated that his heart rate had jumped up into the 120s, I let cardiology know and they advised giving the patient his metoprolol early tonight and I relayed this to nursing. Dr. Celaya stated that he would check on the patient later on tonight by phone. Finally, I talked with Dr. Celaya this morning about having general surgery see the patient for possible EGD in case the patient required a cardiac catheterization, Dr. Celaya did not feel that this was a norris idea and stated that he was not planning on having the patient on any anticoagulation or platelet inhibitor drugs. Patient's chest x-ray today showed continued CHF with no improvement. She remains on 2 L of oxygen at this time. - Physical Exam General: Alert, Oriented x3, Cooperative, No apparent distress, Well developed, Well nourished HEENT: Atraumatic, PERRLA, EOMI, Normocephalic Oral: Moist Mucosa Neck: Supple, Trachea Midline, Thyroid Normal Size and Texture Lungs: No rhonchi, No wheeze, No rales, Diminished Cardiovascular: No murmurs, PMI Normal, Irregular Rate, No rub noted Abdomen: Bowel Sounds Present, Soft, Non Tender, Non-Distended, Obese, No hernias noted Extremities: Capillary Refill Less than 3 Seconds, Edema - +3 mm pitting edema is noted in the lower extremities bilaterally Skin: No rashes, No breakdown Neurological: Cranial nerves II-XII grossly intact, Neuro grossly intact, Sensory exam intact to light touch and pain, Coordination normal Psych/Mental Status: Normal Affect, Appropriate, Alert and oriented to time, place, person, mood and affect Vital Signs Temp Pulse Resp BP Pulse Ox 98.6 F 124 H 20 H 129/52 H 96 06/15/18 17:21 06/15/18 18:59 06/15/18 17:21 06/15/18 18:59 06/15/18 17:21 Oxygen Flow Rate (L/min) 2 Oxygen Delivery Method Nasal Cannula Weight: 140.614 kg Body Mass Index (BMI) 35.8 Intake and Output for Last 24 Hours 06/13/18 06/14/18 06/15/18 23:59 23:59 23:59 Intake Total 901.5 / 901.5 1733.6 / 1733.6 Output Total 300 / 300 375 / 375 Balance 601.5 / 601.5 1358.6 / 1358.6 Microbiology Past 72 Hours 06/14/18 13:30 Stool Occult Blood (CONG) - Final Stool Occult Blood Positive Laboratory Tests Past 24 Hrs 06/14/18 06/14/18 06/15/18 16:40 22:24 05:50 Hgb 13.2 Hct 39.5 L Sodium 137 Potassium 4.0 3.6 Chloride 99 Carbon Dioxide 26.0 Anion Gap 12 BUN 25 H Creatinine 1.75 H Estim Creat Clear Calc 60.21 Est GFR (MDRD) Af Amer 52 L Est GFR (MDRD) Non-Af 43 L BUN/Creatinine Ratio 14.3 Glucose 143 H Calcium 7.8 L Magnesium 1.6 06/15/18 05:50 Hgb 13.2 Hct 40.1 Sodium Potassium Chloride Carbon Dioxide Anion Gap BUN Creatinine Estim Creat Clear Calc Est GFR (MDRD) Af Amer Est GFR (MDRD) Non-Af BUN/Creatinine Ratio Glucose Calcium Magnesium POC Glucose 1106/15/18 06/15/18 16:42 11:03 06:43 POC Glucose 167 H 162 H 161 H 06/14/18 21:12 POC Glucose 200 H Medical Necessity - Tobacco Use Smoking Status: Former smoker Tobacco Use: Non-smoker Assessment/Plan All Active Problems Shortness of breath (Acute) Heart palpitations (Acute) #1 new onset atrial fibrillation with rapid ventricular response-patient is now on a beta-brayan for rate control #2 acute systolic congestive heart failure-patient's ejection fraction is severely reduced with hypokinesis of the left ventricle noted and an EF of 15%. Patient is now on a continuous Lasix drip per cardiology #3 melena-suspect upper GI bleed, patient will remain on a PPI, patient's hemoglobin was 13.2 today which was a slight drop from yesterday. I do not believe he is actively bleeding at this point #4 atherosclerotic heart disease-again patient has not been taking any medications except for aspirin over the last 2 years. He may require cardiac catheterization but due to his melena, the procedure cannot be undertaken at this time. #5 elevated troponins-possibly non-STEMI type II #6 noncompliance with medical regimen #7 type 2 diabetes-patient was on metformin in the past, he has never been on insulin, will monitor his blood sugars and administer insulin as required #8 chronic kidney disease stage III probably secondary to type 2 diabetes, patient's BMP will be rechecked tomorrow, patient's creatinine was slightly more elevated today #9 elevated TSH-significance is unknown, patient's T3 was slightly low but I feel this could be due to chronic illness, his T4 level is normal I discussed his medical condition with his son by phone and his [id number], patient's son states that the patient has been depressed over the last 2 years since the of his from idiopathic pulmonary fibrosis. He states his father is ready to pass on if he cannot be helped medically, his father does not wish to have his life prolonged if he cannot be improved medically. Patient is a DNR CC arrest. Code Visit Inpatient E&M: 03974 Subs Hosp L2
--- NOTE | 2018-06-15 19:11 | PN_ITS ---
Patient Problems: Active and Suspected Problems Shortness of breath (Acute) Heart palpitations (Acute) Subjective: Patient was seen and examined today, I went over the results of his echocardiogram with him and his [id number]-jsk and son by phone. Patient's ejection fraction is 15%, his last echocardiogram we have record of was approximately 11 years ago-his ejection fraction at that time was 40-50%. It appears that at the time of his heart catheterization according to records that I had faxed over from [place], he had 2 stents placed in 2006 and at that time he had a 50% lesion in his circumflex artery. Patient also had a loop recorder implanted a year later after he suffered an episode of syncope. Patient still has a loop recorder. Patient's son states that the patient is adamant about being a DNR with no intubation and no resuscitation, he does want medical treatment if he can improve his health. I discussed this with the patient viola and he confirmed that he wants to be a DNR CC arrest. Cardiology placed the patient on Lasix drip late this afternoon, he has had very little urine output despite my in crease in his IV Lasix this morning, his systolic blood pressure is also been in the 90s this afternoon, earlier today the patient was placed on metoprolol for rate control. I received a phone call early this evening from his nurse who stated that his heart rate had jumped up into the 120s, I let cardiology know and they advised giving the patient his metoprolol early tonight and I relayed this to nursing. Dr. Celaya stated that he would check on the patient later on tonight by phone. Finally, I talked with Dr. Celaya this morning about having general surgery see the patient for possible EGD in case the patient required a cardiac catheterization, Dr. Celaya did not feel that this was a norris idea and stated that he was not planning on having the patient on any anticoagulation or platelet inhibitor drugs. Patient's chest x-ray today showed continued CHF with no improvement. She remains on 2 L of oxygen at this time. - Physical Exam General: Alert, Oriented x3, Cooperative, No apparent distress, Well developed, Well nourished HEENT: Atraumatic, PERRLA, EOMI, Normocephalic Oral: Moist Mucosa Neck: Supple, Trachea Midline, Thyroid Normal Size and Texture Lungs: No rhonchi, No wheeze, No rales, Diminished Cardiovascular: No murmurs, PMI Normal, Irregular Rate, No rub noted Abdomen: Bowel Sounds Present, Soft, Non Tender, Non-Distended, Obese, No hernias noted Extremities: Capillary Refill Less than 3 Seconds, Edema - +3 mm pitting edema is noted in the lower extremities bilaterally Skin: No rashes, No breakdown Neurological: Cranial nerves II-XII grossly intact, Neuro grossly intact, Sensory exam intact to light touch and pain, Coordination normal Psych/Mental Status: Normal Affect, Appropriate, Alert and oriented to time, place, person, mood and affect Vital Signs Temp Pulse Resp BP Pulse Ox 98.6 F 124 H 20 H 129/52 H 96 06/15/18 17:21 06/15/18 18:59 06/15/18 17:21 06/15/18 18:59 06/15/18 17:21 Oxygen Flow Rate (L/min) 2 Oxygen Delivery Method Nasal Cannula Weight: 140.614 kg Body Mass Index (BMI) 35.8 Intake and Output for Last 24 Hours 06/13/18 06/14/18 06/15/18 23:59 23:59 23:59 Intake Total 901.5 / 901.5 1733.6 / 1733.6 Output Total 300 / 300 375 / 375 Balance 601.5 / 601.5 1358.6 / 1358.6 Microbiology Past 72 Hours 06/14/18 13:30 Stool Occult Blood (CONG) - Final Stool Occult Blood Positive Laboratory Tests Past 24 Hrs 06/14/18 06/14/18 06/15/18 16:40 22:24 05:50 Hgb 13.2 Hct 39.5 L Sodium 137 Potassium 4.0 3.6 Chloride 99 Carbon Dioxide 26.0 Anion Gap 12 BUN 25 H Creatinine 1.75 H Estim Creat Clear Calc 60.21 Est GFR (MDRD) Af Amer 52 L Est GFR (MDRD) Non-Af 43 L BUN/Creatinine Ratio 14.3 Glucose 143 H Calcium 7.8 L Magnesium 1.6 06/15/18 05:50 Hgb 13.2 Hct 40.1 Sodium Potassium Chloride Carbon Dioxide Anion Gap BUN Creatinine Estim Creat Clear Calc Est GFR (MDRD) Af Amer Est GFR (MDRD) Non-Af BUN/Creatinine Ratio Glucose Calcium Magnesium POC Glucose 06/15/18 06/15/18 06/15/18 16:42 11:03 06:43 POC Glucose 167 H 162 H 161 H 06/14/18 21:12 POC Glucose 200 H Medical Necessity - Tobacco Use Smoking Status: Former smoker Tobacco Use: Non-smoker Assessment/Plan All Active Problems Shortness of breath (Acute) Heart palpitations (Acute) #1 new onset atrial fibrillation with rapid ventricular response-patient is now on a beta-brayan for rate control #2 acute systolic congestive heart failure-patient's ejection fraction is severely reduced with hypokinesis of the left ventricle noted and an EF of 15%. Patient is now on a continuous Lasix drip per cardiology #3 melena-suspect upper GI bleed, patient will remain on a PPI, patient's hemoglobin was 13.2 today which was a slight drop from yesterday. I do not believe he is actively bleeding at this point #4 atherosclerotic heart disease-again patient has not been taking any medications except for aspirin over the last 2 years. He may require cardiac catheterization but due to his melena, the procedure cannot be undertaken at this time. #5 elevated troponins-possibly non-STEMI type II #6 noncompliance with medical regimen #7 type 2 diabetes-patient was on metformin in the past, he has never been on insulin, will monitor his blood sugars and administer insulin as required #8 chronic kidney disease stage III probably secondary to type 2 diabetes, patient's BMP will be rechecked tomorrow, patient's creatinine was slightly more elevated today #9 elevated TSH-significance is unknown, patient's T3 was slightly low but I feel this could be due to chronic illness, his T4 level is normal I discussed his medical condition with his son by phone and his [id number], patient's son states that the patient has been depressed over the last 2 years since the of his from idiopathic pulmonary fibrosis. He states his father is ready to pass on if he cannot be helped medically, his father does not wish to have his life prolonged if he cannot be improved medically. Patient is a DNR CC arrest. Code Visit Inpatient E&M: 18771 Subs Hosp L2
[2018-06-15] MEDS: Atorvastatin Calcium 40 MG Tablet PO (21:54)
[2018-06-15 23:21] LABS: Bedside Glucose 190 mg/dL (70-110)
[2018-06-16] VITALS (39 sets, daily range): BP systolic 87–143; BP diastolic 57–116; PULSE 102–129; RESP 18–27; TEMP 36.1–36.6; O2SAT 92–99
[2018-06-16 06:25] LABS: Hematocrit 42.4 % (40-54)
[2018-06-16 06:50] LABS: Anion Gap 13 (5-15); BUN 38 mg/dL (7-18); BUN/Creat Ratio 16.3 RATIO (10-20); Calcium,Total 7.9 mg/dL (8.5-10.1); Chloride 101 mmol/L (98-107); Creatinine, Serum 2.33 mg/dL (0.70-1.30); EST Glomerular Filtration Rate 31 mL/min (>60); Est Glom Filt Rate - Afr Amer 37 mL/min (>60); Estimated Creatinine Clearance 45.22 ml/min; Glucose 165 mg/dL (74-106); Potassium 3.9 mmol/L (3.5-5.1); Sodium Level 136 mmol/L (136-145)
[2018-06-16 08:16] LABS: Bedside Glucose 175 mg/dL (70-110)
--- NOTE | 2018-06-16 08:36 | PCM.PN.CARD ---
Subjectve: Patient seen and evaluated. Events of yesterday noted. Appears to be doing much better at this time sitting on side of bed asymptomatic Objective: Vital Signs Temp Pulse Resp BP Pulse Ox 97.6 F L 122 H 21 H 109/88 H 97 06/16/18 03:00 06/16/18 08:00 06/16/18 08:00 06/16/18 08:00 06/16/18 08:12 Oxygen Flow Rate (L/min) 2 Oxygen Delivery Method Room Air Weight: 407 lb 13.683 oz Body Mass Index (BMI) 35.8 Intake and Output for Last 24 Hours 06/14/18 06/15/18 06/16/18 23:59 23:59 23:59 Intake Total 901.5 / 901.5 2698.7 / 2698.7 287.1 / 287.1 Output Total 300 / 300 625 / 625 50 / 50 Balance 601.5 / 601.5 2073.7 / 2073.7 237.1 / 237.1 General: Awake, Alert, Oriented x 3 HEENT: PERRL, EOMI, Sclera Non Icteric Neck: Supple, Good ROM, No Lymph Node Enlargement Lungs: Clear to auscultation Cardiovascular: Irregular Rhythm, Normal S1, Normal S2, No Murmurs, No Rubs, No Gallops Vascular: No Carotid Bruits, Normal Femoral Pulses, Normal Radial Pulses, Normal Dorsalis Pedal Pulse, Normal Posterior Tibial Pulses Abdomen: Bowel Sounds Present, Soft, Non Tender, No HSM, No Organomegaly Extremities: No Cyanosis, No Clubbing, Bilateral Edema +1 Neurological: No Focal Motor or Sensory Deficit Psych/Mental Status: Appropriate 06/16/18 05:55: Hgb 14.0, Hct 42.4 06/16/18 05:55: Sodium 136, Potassium 3.9, Chloride 101, Carbon Dioxide 22.0, Anion Gap 13, BUN 38 H, Creatinine 2.33 H, Est GFR (MDRD) Af Amer 37 L, Est GFR (MDRD) Non-Af 31 L, BUN/Creatinine Ratio 16.3, Glucose 165 H, Calcium 7.9 L Rhythm: EKG: ECHO: Stress Test: Cardiac Cath: PCI: CT Surgery: Holter monitor: EPS: PPM: CXR: Chest CT Scan: Medical Necessity - Tobacco Use Smoking Status: Former smoker Tobacco Use: Non-smoker Assessment/Plan 1. Atrial fibrillation Patient presents with atrial fibrillation the duration of which is not entirely clear at this particular time. He does have rapid ventricular response rate. The recommendation will be to use beta brayan rate control Echocardiogram demonstrated severe global left ventricular systolic dysfunction with an estimated ejection fraction of 15% . He cannot be anticoagulated due to his heme positive stools. He has been started on intravenous amiodarone which will be continued and then he will be transitioned to oral amiodarone. 2. Congestive heart failure-acute systolic He appears to have shortness of breath which is been fairly short standing associated with pedal edema. The above is consistent with acute congestive heart failure. 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 He however does have coronary artery disease as well. He would ultimately need a cardiac catheterization at some point. Beta-brayan and an JAMES inhibitor as BP tolerates and renal function allows Depending on the findings of the above further recommendations will then be made. 3. Abnormal cardiac enzymes He does have mildly abnormal cardiac enzymes. I suspect the above is likely secondary to demand ischemia. Start high intensity statin Will have to hold off on aspirin as well as clopidogrel due to his apparent history of GI bleed Thank you for allowing me to participate in the care of your patient. Please don't hesitate to call if any issues arise
--- NOTE | 2018-06-16 08:40 | PN.CARD_ITS ---
Subjectve: Patient seen and evaluated. Events of yesterday noted. Appears to be doing much better at this time sitting on side of bed asymptomatic Objective: Vital Signs Temp Pulse Resp BP Pulse Ox 97.6 F L 122 H 21 H 109/88 H 97 06/16/18 03:00 06/16/18 08:00 06/16/18 08:00 06/16/18 08:00 06/16/18 08:12 Oxygen Flow Rate (L/min) 2 Oxygen Delivery Method Room Air Weight: 407 lb 13.683 oz Body Mass Index (BMI) 35.8 Intake and Output for Last 24 Hours 06/14/18 06/15/18 06/16/18 23:59 23:59 23:59 Intake Total 901.5 / 901.5 2698.7 / 2698.7 287.1 / 287.1 Output Total 300 / 300 625 / 625 50 / 50 Balance 601.5 / 601.5 2073.7 / 2073.7 237.1 / 237.1 General: Awake, Alert, Oriented x 3 HEENT: PERRL, EOMI, Sclera Non Icteric Neck: Supple, Good ROM, No Lymph Node Enlargement Lungs: Clear to auscultation Cardiovascular: Irregular Rhythm, Normal S1, Normal S2, No Murmurs, No Rubs, No Gallops Vascular: No Carotid Bruits, Normal Femoral Pulses, Normal Radial Pulses, Normal Dorsalis Pedal Pulse, Normal Posterior Tibial Pulses Abdomen: Bowel Sounds Present, Soft, Non Tender, No HSM, No Organomegaly Extremities: No Cyanosis, No Clubbing, Bilateral Edema +1 Neurological: No Focal Motor or Sensory Deficit Psych/Mental Status: Appropriate 06/16/18 05:55: Hgb 14.0, Hct 42.4 06/16/18 05:55: Sodium 136, Potassium 3.9, Chloride 101, Carbon Dioxide 22.0, Anion Gap 13, BUN 38 H, Creatinine 2.33 H, Est GFR (MDRD) Af Amer 37 L, Est GFR (MDRD) Non-Af 31 L, BUN/Creatinine Ratio 16.3, Glucose 165 H, Calcium 7.9 L Rhythm: EKG: ECHO: Stress Test: Cardiac Cath: PCI: CT Surgery: Holter monitor: EPS: PPM: CXR: Chest CT Scan: Medical Necessity - Tobacco Use Smoking Status: Former smoker Tobacco Use: Non-smoker Assessment/Plan 1. Atrial fibrillation * Patient presents with atrial fibrillation the duration of which is not entirely clear at this particular time. He does have rapid ventricular response rate. * The recommendation will be to use beta brayan rate control * Echocardiogram demonstrated severe global left ventricular systolic dysfunction with an estimated ejection fraction of 15% . * He cannot be anticoagulated due to his heme positive stools. * He has been started on intravenous amiodarone which will be continued and then he will be transitioned to oral amiodarone. 2. Congestive heart failure-acute systolic * He appears to have shortness of breath which is been fairly short standing associated with pedal edema. The above is consistent with acute congestive heart failure. 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 He however does have coronary artery disease as well. * He would ultimately need a cardiac catheterization at some point. Beta-block er and an JAMES inhibitor as BP tolerates and renal function allows * Depending on the findings of the above further recommendations will then be made. 3. Abnormal cardiac enzymes * He does have mildly abnormal cardiac enzymes. I suspect the above is likely secondary to demand ischemia. * * Start high intensity statin * Will have to hold off on aspirin as well as clopidogrel due to his apparent history of GI bleed * Thank you for allowing me to participate in the care of your patient. Please don't hesitate to call if any issues arise
[2018-06-16] MEDS: Insulin Lispro 100 UNIT/ML INSULN.PEN SC ×4 (09:16→22:08)
[2018-06-16] MEDS: Pantoprazole Sodium 40 MG Tablet PO (09:17)
[2018-06-16] MEDS: Nystatin Powder 15gm Bottle 1 APPLIC TOPICAL ×2 (09:17→22:03)
[2018-06-16] MEDS: Metoprolol Tartrate 25 MG Tablet PO ×3 (09:18→22:03)
[2018-06-16 11:31] LABS: Bedside Glucose 196 mg/dL (70-110)
--- NOTE | 2018-06-16 11:56 | PCM.PN.HOSP ---
Patient Problems: Active and Suspected Problems Atrial fibrillation with RVR (Acute) Heart failure with reduced ejection fraction (Acute) NSTEMI (non-ST elevated myocardial infarction) (Acute) Subjective: Anxious to go home. Short of breath after just jockeying around. LE edema for 1 month. Vitals/I&O's: Vital Signs Temp Pulse Resp BP Pulse Ox 36.6 C 118 H 27 H 96/62 95 06/16/18 09:00 06/16/18 11:00 06/16/18 11:00 06/16/18 11:00 06/16/18 11:00 Oxygen Flow Rate (L/min) 2 Oxygen Delivery Method Room Air Weight: 185 kg Body Mass Index (BMI) 35.8 Intake and Output for Last 24 Hours 06/14/18 06/15/18 06/16/18 23:59 23:59 23:59 Intake Total 901.5 / 901.5 2698.7 / 2698.7 608.9 / 608.9 Output Total 300 / 300 625 / 625 150 / 150 Balance 601.5 / 601.5 2073.7 / 2073.7 458.9 / 458.9 General: Alert, Cooperative, No apparent distress HEENT: Atraumatic, Normocephalic Oral: Moist Mucosa, No Gingival or Mucosal Lesions/ Ulcerations Neck: No Nodes, Thyroid Normal Size and Texture Lungs: Clear to auscultation, Normal air movement, No rhonchi, No wheeze Cardiovascular: Regular rate, Regular Rhythm, Normal S1, Normal S2, No murmurs Abdomen: Bowel Sounds Present, Soft, Non Tender, Non-Distended, No Hepato-splenomegaly Extremities: No Calf Tenderness, Edema - taut throughout LE. Skin: No rashes, No breakdown Musculoskeletal: No Tenderness to Palpation of Joints or Extremities, No Muscle Wasting Psych/Mental Status: Normal Affect, Appropriate Microbiology Past 72 Hours 06/14/18 13:30 Stool Stool Occult Blood (CONG) - Final Occult Blood Positive Laboratory Results 06/15/18 16:42: POC Glucose 167 H 06/15/18 21:52: POC Glucose 190 H 06/16/18 05:55: Hgb 14.0, Hct 42.4 06/16/18 05:55: Sodium 136, Potassium 3.9, Chloride 101, Carbon Dioxide 22.0, Anion Gap 13, BUN 38 H, Creatinine 2.33 H, Estim Creat Clear Calc 45.22, Est GFR (MDRD) Af Amer 37 L, Est GFR (MDRD) Non-Af 31 L, BUN/Creatinine Ratio 16.3, Glucose 165 H, Calcium 7.9 L 06/16/18 06:49: POC Glucose 175 H 06/16/18 11:16: POC Glucose 196 H Current Medications Acetaminophen (Tylenol) 650 mg PO Q6H PRN PRN PRN Reason: Mild Pain (1-3)/Temp > 100.7 F Atorvastatin Calcium (Lipitor) 40 mg PO QHS [facility] Last Admin: 06/15/18 21:54 Dose: 40 mg Amiodarone HCl 360 mg/ (Dextrose) 200 mls @ 16.67 mls/hr CONT INF .Q12H1M [facility] Stop: 06/16/18 15:14 Last Admin: 06/16/18 03:51 Dose: 16.67 mls/hr Insulin Human Lispro (Humalog Kwikpen (Bkc)) 0 unit SC ACHS [facility]; Protocol Last Admin: 06/16/18 11:18 Dose: 2 units Ipratropium [place] (Atrovent) 0.5 mg INHALATION Q4H PRN PRN PRN Reason: sob Magnesium Hydroxide (Milk Of Magnesia) 30 ml PO DAILY PRN PRN Reason: Constipation Metoprolol Tartrate (Lopressor (Beta May)) 25 mg PO BID [facility] Last Admin: 06/16/18 09:18 Dose: 25 mg Nystatin (Mycostatin Powder) 1 applic TOPICAL BID [facility]; Protocol Last Admin: 06/16/18 09:17 Dose: 1 applicatio Pantoprazole Sodium (Protonix) 40 mg PO DAILY [facility] Last Admin: 06/16/18 09:17 Dose: 40 mg Sodium Chloride () 5 - 30 ml IV UD PRN PRN Reason: SALINE FLUSH Last Admin: 06/15/18 14:23 Dose: 10 ml Medical Necessity - Tobacco Use Smoking Status: Former smoker Tobacco Use: Non-smoker Assessment/Plan All Active Problems Shortness of breath (Acute) Heart palpitations (Acute) Atrial fibrillation with RVR (Acute) Heart failure with reduced ejection fraction (Acute) NSTEMI (non-ST elevated myocardial infarction) (Acute) 1. acute HFrEF EF 15% from echo on 06/15/18 Still volume overloaded, but did have episodes of hypotension Lasix gtt stopped by cardiology will defer to cardiology as to when to resume diuretics 2. afib RVR amio gtt not candidate for anticoagulatoin 3. Heme positive stools. follow up with GI as outpt, after medically stabilized PPI 4. DVT proph: SCDs. Code Visit Inpatient E&M: 32689 Subs Hosp L2
--- NOTE | 2018-06-16 12:04 | PN_ITS ---
Patient Problems: Active and Suspected Problems Atrial fibrillation with RVR (Acute) Heart failure with reduced ejection fraction (Acute) NSTEMI (non-ST elevated myocardial infarction) (Acute) Subjective: Anxious to go home. Short of breath after just jockeying around. LE edema for 1 month. Vitals/I&O's: Vital Signs Temp Pulse Resp BP Pulse Ox 36.6 C 118 H 27 H 96/62 95 06/16/18 09:00 06/16/18 11:00 06/16/18 11:00 06/16/18 11:00 06/16/18 11:00 Oxygen Flow Rate (L/min) 2 Oxygen Delivery Method Room Air Weight: 185 kg Body Mass Index (BMI) 35.8 Intake and Output for Last 24 Hours 06/14/18 06/15/18 06/16/18 23:59 23:59 23:59 Intake Total 901.5 / 901.5 2698.7 / 2698.7 608.9 / 608.9 Output Total 300 / 300 625 / 625 150 / 150 Balance 601.5 / 601.5 2073.7 / 2073.7 458.9 / 458.9 General: Alert, Cooperative, No apparent distress HEENT: Atraumatic, Normocephalic Oral: Moist Mucosa, No Gingival or Mucosal Lesions/ Ulcerations Neck: No Nodes, Thyroid Normal Size and Texture Lungs: Clear to auscultation, Normal air movement, No rhonchi, No wheeze Cardiovascular: Regular rate, Regular Rhythm, Normal S1, Normal S2, No murmurs Abdomen: Bowel Sounds Present, Soft, Non Tender, Non-Distended, No Hepato- splenomegaly Extremities: No Calf Tenderness, Edema - taut throughout LE. Skin: No rashes, No breakdown Musculoskeletal: No Tenderness to Palpation of Joints or Extremities, No Muscle Wasting Psych/Mental Status: Normal Affect, Appropriate Microbiology Past 72 Hours 06/14/18 13:30 Stool Stool Occult Blood (CONG) - Final Occult Blood Positive Laboratory Results 06/15/18 16:42: POC Glucose 167 H 06/15/18 21:52: POC Glucose 190 H 06/16/18 05:55: Hgb 14.0, Hct 42.4 06/16/18 05:55: Sodium 136, Potassium 3.9, Chloride 101, Carbon Dioxide 22.0, Anion Gap 13, BUN 38 H, Creatinine 2.33 H, Estim Creat Clear Calc 45.22, Est GFR (MDRD) Af Amer 37 L, Est GFR (MDRD) Non-Af 31 L, BUN/Creatinine Ratio 16.3, Glucose 165 H, Calcium 7.9 L 06/16/18 06:49: POC Glucose 175 H 06/16/18 11:16: POC Glucose 196 H Current Medications Acetaminophen (Tylenol) 650 mg PO Q6H PRN PRN PRN Reason: Mild Pain (1-3)/Temp > 100.7 F Atorvastatin Calcium (Lipitor) 40 mg PO QHS [facility] Last Admin: 06/15/18 21:54 Dose: 40 mg Amiodarone HCl 360 mg/ (Dextrose) 200 mls @ 16.67 mls/hr CONT INF .Q12H1M [facility] Stop: 06/16/18 15:14 Last Admin: 06/16/18 03:51 Dose: 16.67 mls/hr Insulin Human Lispro (Humalog Kwikpen (Bkc)) 0 unit SC ACHS [facility]; Protocol Last Admin: 06/16/18 11:18 Dose: 2 units Ipratropium [place] (Atrovent) 0.5 mg INHALATION Q4H PRN PRN PRN Reason: sob Magnesium Hydroxide (Milk Of Magnesia) 30 ml PO DAILY PRN PRN Reason: Constipation Metoprolol Tartrate (Lopressor (Beta May)) 25 mg PO BID [facility] Last Admin: 06/16/18 09:18 Dose: 25 mg Nystatin (Mycostatin Powder) 1 applic TOPICAL BID [facility]; Protocol Last Admin: 06/16/18 09:17 Dose: 1 applicatio Pantoprazole Sodium (Protonix) 40 mg PO DAILY [facility] Last Admin: 06/16/18 09:17 Dose: 40 mg Sodium Chloride () 5 - 30 ml IV UD PRN PRN Reason: SALINE FLUSH Last Admin: 06/15/18 14:23 Dose: 10 ml Medical Necessity - Tobacco Use Smoking Status: Former smoker Tobacco Use: Non-smoker Assessment/Plan All Active Problems Shortness of breath (Acute) Heart palpitations (Acute) Atrial fibrillation with RVR (Acute) Heart failure with reduced ejection fraction (Acute) NSTEMI (non-ST elevated myocardial infarction) (Acute) 1. acute HFrEF * EF 15% from echo on 06/15/18 * Still volume overloaded, but did have episodes of hypotension * Lasix gtt stopped by cardiology * will defer to cardiology as to when to resume diuretics 2. afib RVR * amio gtt * not candidate for anticoagulatoin 3. Heme positive stools. * follow up with GI as outpt, after medically stabilized * PPI 4. DVT proph: SCDs. Code Visit Inpatient E&M: 14095 Subs Hosp L2
--- NOTE | 2018-06-16 14:40 | NURSING ---
Student nurse charting reviewed and appropriate.
[2018-06-16 16:31] LABS: Bedside Glucose 157 mg/dL (70-110)
[2018-06-16] MEDS: Amiodarone 200 MG Tablet PO (22:02)
[2018-06-16] MEDS: Atorvastatin Calcium 40 MG Tablet PO (22:02)
[2018-06-16] MEDS: Zolpidem Tartrate 5 MG Tablet PO (22:03)
[2018-06-16 22:21] LABS: Bedside Glucose 153 mg/dL (70-110)
[2018-06-17] VITALS (19 sets, daily range): BP systolic 109–154; BP diastolic 84–137; PULSE 102–133; RESP 18–22; TEMP 36.1–36.7; O2SAT 91–96
[2018-06-17] MEDS: Amiodarone 200 MG Tablet PO ×3 (05:09→21:33)
[2018-06-17 06:33] LABS: Absolute Neutrophil Count 4.6 X10^3/uL (2.0-7.7); Basophil# 0.04 X10^3/uL; Basophil% 0.5 % (0-1); Eosinophil# 0.08 X10^3/uL; Eosinophils% 1.1 % (0-5); Hematocrit 43.1 % (40-54); Hemoglobin 14.5 g/dl (13.0-16.5); Lymphocyte % 16.4 % (19-41); Mean Corp Hgb Conc 33.6 g/gl (32-36); Mean Corpuscular Volume 92.1 fL (80-94); Mean Platelet Vol. 10.7 fl (6.2-12.0); Monocyte# 1.34 X10^3/uL; Monocyte% 18.3 % (0-10); Neutrophil # 4.63 X10^3/uL (2.7-7.7); Neutrophil % 63.4 % (47-70); Platelet Count 155 K/mm3 (150-450); RBC Distribution Width CV 13.5 % (11.6-14.6); RBC Distribution Width SD 44.4 fl (35.1-43.9); Red Blood Count 4.68 M/mm3 (4.6-6.2); White Blood Count 7.3 K/mm3 (4.4-11.0)
[2018-06-17 06:36] LABS: POSITIVE COUNT NO; POSITIVE DIFFERENTIAL NO; POSITIVE MORPHOLOGY NO
[2018-06-17 06:56] LABS: Bedside Glucose 147 mg/dL (70-110)
[2018-06-17 06:59] LABS: Anion Gap 10 (5-15); BUN 38 mg/dL (7-18); BUN/Creat Ratio 21.1 RATIO (10-20); Calcium,Total 8.2 mg/dL (8.5-10.1); Chloride 100 mmol/L (98-107); EST Glomerular Filtration Rate 41 mL/min (>60); Est Glom Filt Rate - Afr Amer 50 mL/min (>60); Estimated Creatinine Clearance 58.54 ml/min; Glucose 135 mg/dL (74-106); Potassium 3.7 mmol/L (3.5-5.1); Sodium Level 134 mmol/L (136-145)
[2018-06-17 07:13] LABS: Magnesium 1.8 mg/dL (1.6-2.6)
[2018-06-17] MEDS: Metoprolol Tartrate 25 MG Tablet PO ×2 (08:11→18:28)
[2018-06-17] MEDS: Nystatin Powder 15gm Bottle 1 APPLIC TOPICAL (08:11)
[2018-06-17] MEDS: Pantoprazole Sodium 40 MG Tablet PO (08:12)
--- NOTE | 2018-06-17 08:19 | PCM.PN.CARD ---
Subjectve: Patient seen and evaluated. doing better.wants to go home Objective: Vital Signs Temp Pulse Resp BP Pulse Ox 97.4 F L 125 H 18 154/126 H 95 06/17/18 08:06 06/17/18 08:11 06/17/18 08:06 06/17/18 08:06 06/17/18 08:06 Oxygen Flow Rate (L/min) 2 Oxygen Delivery Method Room Air Weight: 399 lb 14.696 oz Body Mass Index (BMI) 35.8 Intake and Output for Last 24 Hours 06/15/18 06/16/18 06/17/18 23:59 23:59 23:59 Intake Total 2698.7 / 2698.7 1268.9 / 1268.9 240 / 240 Output Total 625 / 625 550 / 550 Balance 2073.7 / 2073.7 718.9 / 718.9 240 / 240 General: Awake, Alert, Oriented x 3 HEENT: PERRL, EOMI, Sclera Non Icteric Neck: Supple, Good ROM, No Lymph Node Enlargement Lungs: Clear to auscultation Cardiovascular: Irregular Rhythm, Normal S1, Normal S2, No Murmurs, No Rubs, No Gallops Vascular: No Carotid Bruits, Normal Femoral Pulses, Normal Radial Pulses, Normal Dorsalis Pedal Pulse, Normal Posterior Tibial Pulses Abdomen: Bowel Sounds Present, Soft, Non Tender, No HSM, No Organomegaly Extremities: No Cyanosis, No Clubbing, Bilateral Edema +1 Lymphatic: No Lymph Node Enlargement Neurological: No Focal Motor or Sensory Deficit Psych/Mental Status: Appropriate 06/17/18 06:05: WBC 7.3, RBC 4.68, Hgb 14.5, Hct 43.1, MCV 92.1, MCH 31.0, MCHC 33.6, RDW 13.5, RDW Differential 44.4 H, Plt Count 155, MPV 10.7, Immature Gran % (Auto) 0.300, Neut % (Auto) 63.4, Lymph % (Auto) 16.4 L, [place] % (Auto) 18.3 H, Eos % (Auto) 1.1, Baso % (Auto) 0.5, Absolute Neuts (auto) 4.6, Total Counted Not Reportable 06/17/18 06:05: Sodium 134 L, Potassium 3.7, Chloride 100, Carbon Dioxide 24.0, Anion Gap 10, BUN 38 H, Creatinine 1.80 H, Est GFR (MDRD) Af Amer 50 L, Est GFR (MDRD) Non-Af 41 L, BUN/Creatinine Ratio 21.1 H, Glucose 135 H, Calcium 8.2 L 06/17/18 06:05: Magnesium 1.8 Rhythm: EKG: ECHO: Stress Test: Cardiac Cath: PCI: CT Surgery: Holter monitor: EPS: PPM: CXR: Chest CT Scan: Medical Necessity - Tobacco Use Smoking Status: Former smoker Tobacco Use: Non-smoker Assessment/Plan 1. Atrial fibrillation Patient presents with atrial fibrillation the duration of which is not entirely clear at this particular time. He does have rapid ventricular response rate. The recommendation will be to use beta brayan rate control together with the amiodarone Echocardiogram demonstrated severe global left ventricular systolic dysfunction with an estimated ejection fraction of 15% . He cannot be anticoagulated due to his heme positive stools. 2. Congestive heart failure-acute systolic He appears to have shortness of breath which is been fairly short standing associated with pedal edema. The above is consistent with acute congestive heart failure. 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 He however does have coronary artery disease as well. He would ultimately need a cardiac catheterization at some point. Beta-brayan and diuretic as BP tolerates and renal function allows Depending on the findings of the above further recommendations will then be made. 3. Abnormal cardiac enzymes He does have mildly abnormal cardiac enzymes. I suspect the above is likely secondary to demand ischemia. Start high intensity statin Will have to hold off on aspirin as well as clopidogrel due to his apparent history of GI bleed At this time he appears to be fairly stable. Though his ventricular response rate is not ideally controlled it looks like with the increase of the beta-brayan and the amiodarone he should be suitable later this afternoon hopefully to be discharged and followed up as an outpatient. Thank you for allowing me to participate in the care of your patient. Please don't hesitate to call if any issues arise
--- NOTE | 2018-06-17 08:22 | PN.CARD_ITS ---
Subjectve: Patient seen and evaluated. doing better.wants to go home Objective: Vital Signs Temp Pulse Resp BP Pulse Ox 97.4 F L 125 H 18 154/126 H 95 06/17/18 08:06 06/17/18 08:11 06/17/18 08:06 06/17/18 08:06 06/17/18 08:06 Oxygen Flow Rate (L/min) 2 Oxygen Delivery Method Room Air Weight: 399 lb 14.696 oz Body Mass Index (BMI) 35.8 Intake and Output for Last 24 Hours 06/15/18 06/16/18 06/17/18 23:59 23:59 23:59 Intake Total 2698.7 / 2698.7 1268.9 / 1268.9 240 / 240 Output Total 625 / 625 550 / 550 Balance 2073.7 / 2073.7 718.9 / 718.9 240 / 240 General: Awake, Alert, Oriented x 3 HEENT: PERRL, EOMI, Sclera Non Icteric Neck: Supple, Good ROM, No Lymph Node Enlargement Lungs: Clear to auscultation Cardiovascular: Irregular Rhythm, Normal S1, Normal S2, No Murmurs, No Rubs, No Gallops Vascular: No Carotid Bruits, Normal Femoral Pulses, Normal Radial Pulses, Normal Dorsalis Pedal Pulse, Normal Posterior Tibial Pulses Abdomen: Bowel Sounds Present, Soft, Non Tender, No HSM, No Organomegaly Extremities: No Cyanosis, No Clubbing, Bilateral Edema +1 Lymphatic: No Lymph Node Enlargement Neurological: No Focal Motor or Sensory Deficit Psych/Mental Status: Appropriate 06/17/18 06:05: WBC 7.3, RBC 4.68, Hgb 14.5, Hct 43.1, MCV 92.1, MCH 31.0, MCHC 33.6, RDW 13.5, RDW Differential 44.4 H, Plt Count 155, MPV 10.7, Immature Gran % (Auto) 0.300, Neut % (Auto) 63.4, Lymph % (Auto) 16.4 L, [place] % (Auto) 18.3 H, Eos % (Auto) 1.1, Baso % (Auto) 0.5, Absolute Neuts (auto) 4.6, Total Counted No t Reportable 06/17/18 06:05: Sodium 134 L, Potassium 3.7, Chloride 100, Carbon Dioxide 24.0, Anion Gap 10, BUN 38 H, Creatinine 1.80 H, Est GFR (MDRD) Af Amer 50 L, Est GFR (MDRD) Non-Af 41 L, BUN/Creatinine Ratio 21.1 H, Glucose 135 H, Calcium 8.2 L 06/17/18 06:05: Magnesium 1.8 Rhythm: EKG: ECHO: Stress Test: Cardiac Cath: PCI: CT Surgery: Holter monitor: EPS: PPM: CXR: Chest CT Scan: Medical Necessity - Tobacco Use Smoking Status: Former smoker Tobacco Use: Non-smoker Assessment/Plan 1. Atrial fibrillation * Patient presents with atrial fibrillation the duration of which is not entirely clear at this particular time. He does have rapid ventricular response rate. * The recommendation will be to use beta brayan rate control together with the amiodarone * Echocardiogram demonstrated severe global left ventricular systolic dysfunctio n with an estimated ejection fraction of 15% . * He cannot be anticoagulated due to his heme positive stools. * 2. Congestive heart failure-acute systolic * He appears to have shortness of breath which is been fairly short standing associated with pedal edema. The above is consistent with acute congestive heart failure. 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 He however does have coronary artery disease as well. * He would ultimately need a cardiac catheterization at some point. Beta- brayan and diuretic as BP tolerates and renal function allows * Depending on the findings of the above further recommendations will then be made. 3. Abnormal cardiac enzymes * He does have mildly abnormal cardiac enzymes. I suspect the above is likely secondary to demand ischemia. * * Start high intensity statin * Will have to hold off on aspirin as well as clopidogrel due to his apparent history of GI bleed * * * At this time he appears to be fairly stable. Though his ventricular response rate is not ideally controlled it looks like with the increase of the beta- brayan and the amiodarone he should be suitable later this afternoon hopefully to be discharged and followed up as an outpatient. Thank you for allowing me to participate in the care of your patient. Please don't hesitate to call if any issues arise
[2018-06-17] MEDS: Metoprolol Tartrate 50 MG Tablet PO ×2 (10:03→18:29)
[2018-06-17] MEDS: Furosemide 20 MG Tablet 60 MG PO (10:05)
[2018-06-17 11:25] LABS: Bedside Glucose 191 mg/dL (70-110)
[2018-06-17] MEDS: Insulin Lispro 100 UNIT/ML INSULN.PEN SC ×3 (12:46→21:32)
--- NOTE | 2018-06-17 14:20 | PCM.PN.HOSP ---
Patient Problems: Active and Suspected Problems Atrial fibrillation with RVR (Acute) Heart failure with reduced ejection fraction (Acute) NSTEMI (non-ST elevated myocardial infarction) (Acute) Subjective: Still with LE. No palpitations. No shortness of breath at rest. Vitals/I&O's: Vital Signs Temp Pulse Resp BP Pulse Ox 36.7 C 122 H 18 154/137 H 95 06/17/18 12:50 06/17/18 12:50 06/17/18 12:50 06/17/18 12:50 06/17/18 12:50 Oxygen Flow Rate (L/min) 2 Oxygen Delivery Method Room Air Weight: 181.4 kg Body Mass Index (BMI) 35.8 Intake and Output for Last 24 Hours 06/15/18 06/16/18 06/17/18 23:59 23:59 23:59 Intake Total 2698.7 / 2698.7 1268.9 / 1268.9 840 / 840 Output Total 625 / 625 550 / 550 Balance 2073.7 / 2073.7 718.9 / 718.9 840 / 840 General: Alert, Cooperative, No apparent distress HEENT: Atraumatic, Normocephalic Oral: Moist Mucosa, No Gingival or Mucosal Lesions/ Ulcerations Neck: No Nodes, Thyroid Normal Size and Texture Lungs: Normal air movement, - - bibasilar crackles. Cardiovascular: Regular rate, Regular Rhythm, Normal S1, Normal S2 Abdomen: Soft, Non Tender, Non-Distended, Obese Extremities: No Calf Tenderness, Edema - taut bilateral lower extremities. Skin: No rashes, No breakdown Musculoskeletal: No Tenderness to Palpation of Joints or Extremities, No Muscle Wasting Psych/Mental Status: Normal Affect, Appropriate Microbiology Past 72 Hours 06/14/18 13:30 Stool Stool Occult Blood (CONG) - Final Occult Blood Positive Laboratory Results 06/16/18 16:20: POC Glucose 157 H 06/16/18 22:07: POC Glucose 153 H 06/17/18 06:05: WBC 7.3, RBC 4.68, Hgb 14.5, Hct 43.1, MCV 92.1, MCH 31.0, MCHC 33.6, RDW 13.5, RDW Differential 44.4 H, Plt Count 155, MPV 10.7, Immature Gran % (Auto) 0.300, Neut % (Auto) 63.4, Lymph % (Auto) 16.4 L, [place] % (Auto) 18.3 H, Eos % (Auto) 1.1, Baso % (Auto) 0.5, Absolute Neuts (auto) 4.6, Absolute Lymphs (auto) 1.20, Total Counted Not Reportable 06/17/18 06:05: Sodium 134 L, Potassium 3.7, Chloride 100, Carbon Dioxide 24.0, Anion Gap 10, BUN 38 H, Creatinine 1.80 H, Estim Creat Clear Calc 58.54, Est GFR (MDRD) Af Amer 50 L, Est GFR (MDRD) Non-Af 41 L, BUN/Creatinine Ratio 21.1 H, Glucose 135 H, Calcium 8.2 L 06/17/18 06:05: Magnesium 1.8 06/17/18 06:46: POC Glucose 147 H 06/17/18 11:03: POC Glucose 191 H Current Medications Acetaminophen (Tylenol) 650 mg PO Q6H PRN PRN PRN Reason: Mild Pain (1-3)/Temp > 100.7 F Amiodarone HCl (Cordarone) 200 mg PO TID [facility] Last Admin: 06/17/18 12:52 Dose: 200 mg Atorvastatin Calcium (Lipitor) 40 mg PO QHS [facility] Last Admin: 06/16/18 22:02 Dose: 40 mg Furosemide (Lasix) 60 mg PO BID@1000,1800 [facility] Last Admin: 06/17/18 10:05 Dose: 60 mg Insulin Human Lispro (Humalog Kwikpen (Bkc)) 0 unit SC ACHS [facility]; Protocol Last Admin: 06/17/18 12:46 Dose: 2 units Ipratropium [place] (Atrovent) 0.5 mg INHALATION Q4H PRN PRN PRN Reason: sob Magnesium Hydroxide (Milk Of Magnesia) 30 ml PO DAILY PRN PRN Reason: Constipation Metoprolol Tartrate (Lopressor (Beta May)) 50 mg PO BID [facility] Last Admin: 06/17/18 10:03 Dose: 25 mg Nystatin (Mycostatin Powder) 1 applic TOPICAL BID [facility]; Protocol Last Admin: 06/17/18 08:11 Dose: 1 applicatio Pantoprazole Sodium (Protonix) 40 mg PO DAILY [facility] Last Admin: 06/17/18 08:12 Dose: 40 mg Sodium Chloride () 5 - 30 ml IV UD PRN PRN Reason: SALINE FLUSH Last Admin: 06/15/18 14:23 Dose: 10 ml Zolpidem Tartrate (Ambien (Generic)) 5 mg PO QHS PRN PRN PRN Reason: INSOMNIA Last Admin: 06/16/18 22:03 Dose: 5 mg Medical Necessity - Tobacco Use Smoking Status: Former smoker Tobacco Use: Non-smoker Assessment/Plan All Active Problems Shortness of breath (Acute) Heart palpitations (Acute) Atrial fibrillation with RVR (Acute) Heart failure with reduced ejection fraction (Acute) NSTEMI (non-ST elevated myocardial infarction) (Acute) 1. acute HFrEF EF 15% from echo on 06/15/18 Still volume overloaded, but did have episodes of hypotension Lasix gtt stopped by cardiology started on oral lasix will need to follow up with cardiology about LHC and further evaluation will change lasix to IV from PO while he will continued to be monitored in the hospital 2. afib RVR still tachycardic started on Amio 200 TID, Metoprolol 50 BID would need to see how his HR is doing before discharge 3. Heme positive stools. follow up with GI as outpt, after medically stabilized PPI 4. CKD 3, presumed (no baseline available) monitor avoid nephrotoxic agents. 5. DVT proph: SCDs. DW family at bedside. Code Visit Inpatient E&M: 20350 Subs Hosp L2
--- NOTE | 2018-06-17 14:24 | PN_ITS ---
Patient Problems: Active and Suspected Problems Atrial fibrillation with RVR (Acute) Heart failure with reduced ejection fraction (Acute) NSTEMI (non-ST elevated myocardial infarction) (Acute) Subjective: Still with LE. No palpitations. No shortness of breath at rest. Vitals/I&O's: Vital Signs Temp Pulse Resp BP Pulse Ox 36.7 C 122 H 18 154/137 H 95 06/17/18 12:50 06/17/18 12:50 06/17/18 12:50 06/17/18 12:50 06/17/18 12:50 Oxygen Flow Rate (L/min) 2 Oxygen Delivery Method Room Air Weight: 181.4 kg Body Mass Index (BMI) 35.8 Intake and Output for Last 24 Hours 06/15/18 06/16/18 06/17/18 23:59 23:59 23:59 Intake Total 2698.7 / 2698.7 1268.9 / 1268.9 840 / 840 Output Total 625 / 625 550 / 550 Balance 2073.7 / 2073.7 718.9 / 718.9 840 / 840 General: Alert, Cooperative, No apparent distress HEENT: Atraumatic, Normocephalic Oral: Moist Mucosa, No Gingival or Mucosal Lesions/ Ulcerations Neck: No Nodes, Thyroid Normal Size and Texture Lungs: Normal air movement, - - bibasilar crackles. Cardiovascular: Regular rate, Regular Rhythm, Normal S1, Normal S2 Abdomen: Soft, Non Tender, Non-Distended, Obese Extremities: No Calf Tenderness, Edema - taut bilateral lower extremities. Skin: No rashes, No breakdown Musculoskeletal: No Tenderness to Palpation of Joints or Extremities, No Muscle Wasting Psych/Mental Status: Normal Affect, Appropriate Microbiology Past 72 Hours 06/14/18 13:30 Stool Stool Occult Blood (CONG) - Final Occult Blood Positive Laboratory Results 06/16/18 16:20: POC Glucose 157 H 06/16/18 22:07: POC Glucose 153 H 06/17/18 06:05: WBC 7.3, RBC 4.68, Hgb 14.5, Hct 43.1, MCV 92.1, MCH 31.0, MCHC 33.6, RDW 13.5, RDW Differential 44.4 H, Plt Count 155, MPV 10.7, Immature Gran % (Auto) 0.300, Neut % (Auto) 63.4, Lymph % (Auto) 16.4 L, [place] % (Auto) 18.3 H, Eos % (Auto) 1.1, Baso % (Auto) 0.5, Absolute Neuts (auto) 4.6, Absolute Lymphs (auto) 1.20, Total Counted Not Reportable 06/17/18 06:05: Sodium 134 L, Potassium 3.7, Chloride 100, Carbon Dioxide 24.0, Anion Gap 10, BUN 38 H, Creatinine 1.80 H, Estim Creat Clear Calc 58.54, Est GFR (MDRD) Af Amer 50 L, Est GFR (MDRD) Non-Af 41 L, BUN/Creatinine Ratio 21.1 H, Glucose 135 H, Calcium 8.2 L 06/17/18 06:05: Magnesium 1.8 06/17/18 06:46: POC Glucose 147 H 06/17/18 11:03: POC Glucose 191 H Current Medications Acetaminophen (Tylenol) 650 mg PO Q6H PRN PRN PRN Reason: Mild Pain (1-3)/Temp > 100.7 F Amiodarone HCl (Cordarone) 200 mg PO TID [facility] Last Admin: 06/17/18 12:52 Dose: 200 mg Atorvastatin Calcium (Lipitor) 40 mg PO QHS [facility] Last Admin: 06/16/18 22:02 Dose: 40 mg Furosemide (Lasix) 60 mg PO BID@1000,1800 [facility] Last Admin: 06/17/18 10:05 Dose: 60 mg Insulin Human Lispro (Humalog Kwikpen (Bkc)) 0 unit SC ACHS [facility]; Protocol Last Admin: 06/17/18 12:46 Dose: 2 units Ipratropium [place] (Atrovent) 0.5 mg INHALATION Q4H PRN PRN PRN Reason: sob Magnesium Hydroxide (Milk Of Magnesia) 30 ml PO DAILY PRN PRN Reason: Constipation Metoprolol Tartrate (Lopressor (Beta May)) 50 mg PO BID [facility] Last Admin: 06/17/18 10:03 Dose: 25 mg Nystatin (Mycostatin Powder) 1 applic TOPICAL BID [facility]; Protocol Last Admin: 06/17/18 08:11 Dose: 1 applicatio Pantoprazole Sodium (Protonix) 40 mg PO DAILY [facility] Last Admin: 06/17/18 08:12 Dose: 40 mg Sodium Chloride () 5 - 30 ml IV UD PRN PRN Reason: SALINE FLUSH Last Admin: 06/15/18 14:23 Dose: 10 ml Zolpidem Tartrate (Ambien (Generic)) 5 mg PO QHS PRN PRN PRN Reason: INSOMNIA Last Admin: 06/16/18 22:03 Dose: 5 mg Medical Necessity - Tobacco Use Smoking Status: Former smoker Tobacco Use: Non-smoker Assessment/Plan All Active Problems Shortness of breath (Acute) Heart palpitations (Acute) Atrial fibrillation with RVR (Acute) Heart failure with reduced ejection fraction (Acute) NSTEMI (non-ST elevated myocardial infarction) (Acute) 1. acute HFrEF * EF 15% from echo on 06/15/18 * Still volume overloaded, but did have episodes of hypotension * Lasix gtt stopped by cardiology * started on oral lasix * will need to follow up with cardiology about LHC and further evaluation * will change lasix to IV from PO while he will continued to be monitored in the hospital 2. afib RVR * still tachycardic * started on Amio 200 TID, Metoprolol 50 BID * would need to see how his HR is doing before discharge 3. Heme positive stools. * follow up with GI as outpt, after medically stabilized * PPI 4. CKD 3, * presumed (no baseline available) * monitor * avoid nephrotoxic agents. 5. DVT proph: SCDs. DW family at bedside. Code Visit Inpatient E&M: 63528 Subs Hosp L2
[2018-06-17] MEDS: 0.9% NaCl Peripheral Flush Adult/Peds IV (15:35)
[2018-06-17] MEDS: Furosemide 20 MG/2 ML VIAL IV (15:35)
[2018-06-17] MEDS: Acetaminophen 325 MG Tablet 650 MG PO (15:41)
[2018-06-17 16:50] LABS: Bedside Glucose 186 mg/dL (70-110)
[2018-06-17] MEDS: Furosemide 100 MG/10 ML Vial 60 MG IV (17:23)
[2018-06-17] MEDS: Atorvastatin Calcium 40 MG Tablet PO (21:33)
[2018-06-17 21:40] LABS: Bedside Glucose 199 mg/dL (70-110)
[2018-06-18] VITALS (14 sets, daily range): BP systolic 114–151; BP diastolic 73–98; PULSE 91–130; RESP 18–20; TEMP 36.4–36.6; O2SAT 93–96
[2018-06-18] MEDS: Amiodarone 200 MG Tablet PO ×3 (05:08→20:59)
[2018-06-18] MEDS: Nystatin Powder 15gm Bottle 1 APPLIC TOPICAL (05:08)
[2018-06-18 06:55] LABS: Bedside Glucose 157 mg/dL (70-110)
[2018-06-18 07:20] LABS: Anion Gap 12 (5-15); BUN 36 mg/dL (7-18); BUN/Creat Ratio 20.1 RATIO (10-20); Calcium,Total 8.3 mg/dL (8.5-10.1); Chloride 100 mmol/L (98-107); Creatinine, Serum 1.79 mg/dL (0.70-1.30); EST Glomerular Filtration Rate 42 mL/min (>60); Est Glom Filt Rate - Afr Amer 51 mL/min (>60); Estimated Creatinine Clearance 58.86 ml/min; Glucose 145 mg/dL (74-106); Potassium 3.5 mmol/L (3.5-5.1); Sodium Level 138 mmol/L (136-145)
[2018-06-18] MEDS: Acetaminophen 325 MG Tablet 650 MG PO ×2 (08:27→21:06)
[2018-06-18] MEDS: Insulin Lispro 100 UNIT/ML INSULN.PEN SC ×3 (08:27→20:58)
[2018-06-18] MEDS: Pantoprazole Sodium 40 MG Tablet PO (09:28)
[2018-06-18] MEDS: Metoprolol Tartrate 50 MG Tablet PO (09:28)
[2018-06-18] MEDS: Furosemide 100 MG/10 ML Vial 60 MG IV (09:28)
[2018-06-18] MEDS: 0.9% NaCl Peripheral Flush Adult/Peds IV (09:28)
--- NOTE | 2018-06-18 10:13 | PCM.PN.CARD ---
Subjectve: Patient continues to improve. Shortness of breath is markedly improved however his lower extremity edema is still present. He reports that he is lost about 25 pounds since admission. Telemetry shows normal sinus rhythm but was previously atrial fibrillation. Currently on p.o. amiodarone beta-blockers. No chest pain or angina. Objective: Vital Signs Temp Pulse Resp BP Pulse Ox 97.8 F 128 H 18 148/98 H 95 06/18/18 09:27 06/18/18 09:28 06/18/18 09:27 06/18/18 09:27 06/18/18 09:27 Oxygen Flow Rate (L/min) 2 Oxygen Delivery Method Room Air Weight: 404 lb 1.717 oz Body Mass Index (BMI) 35.8 Intake and Output for Last 24 Hours 06/16/18 06/17/18 06/18/18 23:59 23:59 23:59 Intake Total 1268.9 / 1268.9 1460 / 1460 240 / 240 Output Total 550 / 550 Balance 718.9 / 718.9 1460 / 1460 240 / 240 General: Awake, Alert, Oriented x 3 HEENT: PERRL, EOMI, Sclera Non Icteric Neck: Supple, Good ROM, No Lymph Node Enlargement Lungs: Clear to auscultation Cardiovascular: Regular Rhythm, Normal S1, Normal S2, No Murmurs, No Rubs, No Gallops Vascular: No Carotid Bruits, Normal Femoral Pulses, Normal Radial Pulses, Normal Dorsalis Pedal Pulse, Normal Posterior Tibial Pulses Abdomen: Bowel Sounds Present, Soft, Non Tender, No HSM, No Organomegaly Extremities: No Cyanosis, No Clubbing, Bilateral Edema +2 Neurological: No Focal Motor or Sensory Deficit 06/18/18 06:22: Sodium 138, Potassium 3.5, Chloride 100, Carbon Dioxide 26.0, Anion Gap 12, BUN 36 H, Creatinine 1.79 H, Est GFR (MDRD) Af Amer 51 L, Est GFR (MDRD) Non-Af 42 L, BUN/Creatinine Ratio 20.1 H, Glucose 145 H, Calcium 8.3 L Rhythm: EKG: ECHO: Stress Test: Cardiac Cath: PCI: CT Surgery: Holter monitor: EPS: PPM: CXR: Chest CT Scan: Medical Necessity - Tobacco Use Smoking Status: Former smoker Tobacco Use: Non-smoker Assessment/Plan 1. Cardiomyopathy: The patient presents with new onset congestive heart failure and biventricular failure, spinal well to IV diuretic therapy, beta-brayan. He has chronic renal insufficiency making JUAN inhibitors and ARB somewhat contraindicated. Would recommend starting hydralazine 10 mg p.o. 3 times daily. In addition he still has edema in his legs and is in a positive fluid balance despite IV Lasix therapy assuming this is correct. The patient reports marked improvement abdominal bloating, would recommend switching him from IV Lasix to Lasix 80 mg p.o. twice daily with respect to his chronic renal insufficiency. Recommended a 1500 cc fluid restriction as well. Patient will require a left and right heart catheterization by Dr. Celaya as an outpatient. In addition he will continue baby aspirin therapy going forward. We will hold off on Plavix until patient is ready to undergo catheterization. 2. Atrial fibrillation: Patient has been loaded with IV amiodarone and switch to amiodarone 40 mg p.o. 3 times daily. He will continue this for. Of 3 days time additional, followed by switching him to 200 mg p.o. daily. He is converted from atrial fibrillation to normal sinus rhythm with sure will assist with his atrial kick and resynchronization and hopefully improvement of his cardiac output overall. Would recommend continuing amiodarone going forward. 3. Hyperlipidemia: Continue statin based medications for high risk coronary artery disease. 4. The patient reportedly requires evaluation by GI, will hold off on catheterization until this is been completed. The patient denies any bright red blood per rectum or black tarry stools. 5. Patient may be discharged home if he is tolerating p.o. Lasix and p.o. hydralazine and is ambulated without difficulty. Recommended to use Juan bandages at home for his legs to facilitate venous return. Would not object to keep the patient 1 more day for medical observation and hydralazine titration upwards. Thank you very much for the opportunity to precipitate the cardiac care of your patient. Code Visit Inpatient E&M: 12479 Subs Hosp L2
[2018-06-18 11:21] LABS: Bedside Glucose 141 mg/dL (70-110)
--- NOTE | 2018-06-18 14:14 | PCM.PN.HOSP ---
Patient Problems: Active and Suspected Problems Atrial fibrillation with RVR (Acute) Heart failure with reduced ejection fraction (Acute) NSTEMI (non-ST elevated myocardial infarction) (Acute) Subjective: Decreased edema particularly in his hands. Still with YATES. Vitals/I&O's: Vital Signs Temp Pulse Resp BP Pulse Ox 36.6 C 110 H 18 148/98 H 95 06/18/18 09:27 06/18/18 11:01 06/18/18 09:27 06/18/18 09:27 06/18/18 09:27 Oxygen Flow Rate (L/min) 2 Oxygen Delivery Method Room Air Weight: 183.3 kg Body Mass Index (BMI) 35.8 Intake and Output for Last 24 Hours 06/16/18 06/17/18 06/18/18 23:59 23:59 23:59 Intake Total 1268.9 / 1268.9 1460 / 1460 480 / 480 Output Total 550 / 550 Balance 718.9 / 718.9 1460 / 1460 480 / 480 General: Alert, Cooperative, No apparent distress HEENT: Atraumatic, Normocephalic Oral: Moist Mucosa, No Gingival or Mucosal Lesions/ Ulcerations Neck: No Nodes, Thyroid Normal Size and Texture Lungs: Normal air movement, No rhonchi, No wheeze, - - bibasilar crackles. Cardiovascular: Normal S1, Normal S2, Tachycardic Abdomen: Bowel Sounds Present, Soft, Non Tender, Non-Distended, Obese Extremities: No edema, Edema - decreased from 06/17 Psych/Mental Status: Normal Affect, Appropriate Laboratory Results 06/17/18 16:47: POC Glucose 186 H 06/17/18 21:23: POC Glucose 199 H 06/18/18 06:22: Sodium 138, Potassium 3.5, Chloride 100, Carbon Dioxide 26.0, Anion Gap 12, BUN 36 H, Creatinine 1.79 H, Estim Creat Clear Calc 58.86, Est GFR (MDRD) Af Amer 51 L, Est GFR (MDRD) Non-Af 42 L, BUN/Creatinine Ratio 20.1 H, Glucose 145 H, Calcium 8.3 L 06/18/18 06:49: POC Glucose 157 H 06/18/18 11:10: POC Glucose 141 H Current Medications Acetaminophen (Tylenol) 650 mg PO Q6H PRN PRN PRN Reason: Mild Pain (1-3)/Temp > 100.7 F Last Admin: 06/18/18 08:27 Dose: 650 mg Amiodarone HCl (Cordarone) 200 mg PO TID [facility] Last Admin: 06/18/18 05:08 Dose: 200 mg Atorvastatin Calcium (Lipitor) 40 mg PO QHS [facility] Last Admin: 06/17/18 21:33 Dose: 40 mg Furosemide (Lasix) 80 mg PO BID@1000,1800 [facility] Hydralazine HCl (Apresoline) 10 mg PO TID [facility] Insulin Human Lispro (Humalog Kwikpen (Bkc)) 0 unit SC ACHS [facility]; Protocol Last Admin: 06/18/18 12:00 Dose: Not Given Ipratropium [place] (Atrovent) 0.5 mg INHALATION Q4H PRN PRN PRN Reason: sob Magnesium Hydroxide (Milk Of Magnesia) 30 ml PO DAILY PRN PRN Reason: Constipation Metoprolol Tartrate (Lopressor (Beta May)) 100 mg PO BID [facility] Nystatin (Mycostatin Powder) 1 applic TOPICAL BID [facility]; Protocol Last Admin: 06/18/18 05:08 Dose: 1 applicatio Pantoprazole Sodium (Protonix) 40 mg PO DAILY [facility] Last Admin: 06/18/18 09:28 Dose: 40 mg Sodium Chloride () 5 - 30 ml IV UD PRN PRN Reason: SALINE FLUSH Last Admin: 06/18/18 09:28 Dose: 10 ml Zolpidem Tartrate (Ambien (Generic)) 5 mg PO QHS PRN PRN PRN Reason: INSOMNIA Last Admin: 06/16/18 22:03 Dose: 5 mg Medical Necessity - Tobacco Use Smoking Status: Former smoker Tobacco Use: Non-smoker Assessment/Plan All Active Problems Shortness of breath (Acute) Heart palpitations (Acute) Atrial fibrillation with RVR (Acute) Heart failure with reduced ejection fraction (Acute) NSTEMI (non-ST elevated myocardial infarction) (Acute) 1. acute HFrEF EF 15% from echo on 06/15/18 Still volume overloaded, but did have episodes of hypotension Lasix gtt stopped by cardiology started on oral lasix continue lasix 80 BID 2. afib RVR still tachycardic started on Amio 200 TID, Metoprolol [address] Rosas, will increase Metoprolol to 100 BID 3. Heme positive stools. follow up with GI as outpt, after medically stabilized PPI 4. CKD 3, presumed (no baseline available) monitor avoid nephrotoxic agents. 5. DVT proph: SCDs. 6. HTN: fair control started on Hydralazine 10 TID monitor DW family at bedside. Code Visit Inpatient E&M: 73695 Subs Hosp L2
--- NOTE | 2018-06-18 14:18 | PN_ITS ---
Patient Problems: Active and Suspected Problems Atrial fibrillation with RVR (Acute) Heart failure with reduced ejection fraction (Acute) NSTEMI (non-ST elevated myocardial infarction) (Acute) Subjective: Decreased edema particularly in his hands. Still with YATES. Vitals/I&O's: Vital Signs Temp Pulse Resp BP Pulse Ox 36.6 C 110 H 18 148/98 H 95 06/18/18 09:27 06/18/18 11:01 06/18/18 09:27 06/18/18 09:27 06/18/18 09:27 Oxygen Flow Rate (L/min) 2 Oxygen Delivery Method Room Air Weight: 183.3 kg Body Mass Index (BMI) 35.8 Intake and Output for Last 24 Hours 06/16/18 06/17/18 06/18/18 23:59 23:59 23:59 Intake Total 1268.9 / 1268.9 1460 / 1460 480 / 480 Output Total 550 / 550 Balance 718.9 / 718.9 1460 / 1460 480 / 480 General: Alert, Cooperative, No apparent distress HEENT: Atraumatic, Normocephalic Oral: Moist Mucosa, No Gingival or Mucosal Lesions/ Ulcerations Neck: No Nodes, Thyroid Normal Size and Texture Lungs: Normal air movement, No rhonchi, No wheeze, - - bibasilar crackles. Cardiovascular: Normal S1, Normal S2, Tachycardic Abdomen: Bowel Sounds Present, Soft, Non Tender, Non-Distended, Obese Extremities: No edema, Edema - decreased from 06/17 Psych/Mental Status: Normal Affect, Appropriate Laboratory Results 06/17/18 16:47: POC Glucose 186 H 06/17/18 21:23: POC Glucose 199 H 06/18/18 06:22: Sodium 138, Potassium 3.5, Chloride 100, Carbon Dioxide 26.0, Anion Gap 12, BUN 36 H, Creatinine 1.79 H, Estim Creat Clear Calc 58.86, Est GFR (MDRD) Af Amer 51 L, Est GFR (MDRD) Non-Af 42 L, BUN/Creatinine Ratio 20.1 H, Glucose 145 H, Calcium 8.3 L 06/18/18 06:49: POC Glucose 157 H 06/18/18 11:10: POC Glucose 141 H Current Medications Acetaminophen (Tylenol) 650 mg PO Q6H PRN PRN PRN Reason: Mild Pain (1-3)/Temp > 100.7 F Last Admin: 06/18/18 08:27 Dose: 650 mg Amiodarone HCl (Cordarone) 200 mg PO TID [facility] Last Admin: 06/18/18 05:08 Dose: 200 mg Atorvastatin Calcium (Lipitor) 40 mg PO QHS [facility] Last Admin: 06/17/18 21:33 Dose: 40 mg Furosemide (Lasix) 80 mg PO BID@1000,1800 [facility] Hydralazine HCl (Apresoline) 10 mg PO TID [facility] Insulin Human Lispro (Humalog Kwikpen (Bkc)) 0 unit SC ACHS [facility]; Protocol Last Admin: 06/18/18 12:00 Dose: Not Given Ipratropium [place] (Atrovent) 0.5 mg INHALATION Q4H PRN PRN PRN Reason: sob Magnesium Hydroxide (Milk Of Magnesia) 30 ml PO DAILY PRN PRN Reason: Constipation Metoprolol Tartrate (Lopressor (Beta May)) 100 mg PO BID [facility] Nystatin (Mycostatin Powder) 1 applic TOPICAL BID [facility]; Protocol Last Admin: 06/18/18 05:08 Dose: 1 applicatio Pantoprazole Sodium (Protonix) 40 mg PO DAILY [facility] Last Admin: 06/18/18 09:28 Dose: 40 mg Sodium Chloride () 5 - 30 ml IV UD PRN PRN Reason: SALINE FLUSH Last Admin: 06/18/18 09:28 Dose: 10 ml Zolpidem Tartrate (Ambien (Generic)) 5 mg PO QHS PRN PRN PRN Reason: INSOMNIA Last Admin: 06/16/18 22:03 Dose: 5 mg Medical Necessity - Tobacco Use Smoking Status: Former smoker Tobacco Use: Non-smoker Assessment/Plan All Active Problems Shortness of breath (Acute) Heart palpitations (Acute) Atrial fibrillation with RVR (Acute) Heart failure with reduced ejection fraction (Acute) NSTEMI (non-ST elevated myocardial infarction) (Acute) 1. acute HFrEF * EF 15% from echo on 06/15/18 * Still volume overloaded, but did have episodes of hypotension * Lasix gtt stopped by cardiology * started on oral lasix * continue lasix 80 BID 2. afib RVR * still tachycardic * started on Amio 200 TID, Metoprolol 50 BID * discussed with Dr. Rosas, will increase Metoprolol to 100 BID 3. Heme positive stools. * follow up with GI as outpt, after medically stabilized * PPI 4. CKD 3, * presumed (no baseline available) * monitor * avoid nephrotoxic agents. 5. DVT proph: SCDs. 6. HTN: * fair control * started on Hydralazine 10 TID * monitor DW family at bedside. Code Visit Inpatient E&M: 67072 Subs Hosp L2
[2018-06-18] MEDS: hydrALAZINE 10 MG Tablet PO ×2 (15:00→20:59)
[2018-06-18 16:35] LABS: Bedside Glucose 183 mg/dL (70-110)
[2018-06-18] MEDS: Furosemide 80 MG Tablet PO (17:40)
[2018-06-18] MEDS: Metoprolol Tartrate 100 MG Tablet PO (20:58)
[2018-06-18] MEDS: Atorvastatin Calcium 40 MG Tablet PO (20:59)
[2018-06-18 21:11] LABS: Bedside Glucose 185 mg/dL (70-110)
[2018-06-19] VITALS (18 sets, daily range): BP systolic 104–161; BP diastolic 57–122; PULSE 46–130; RESP 16–22; TEMP 36.3–37.1; O2SAT 94–97
[2018-06-19] MEDS: hydrALAZINE 10 MG Tablet PO ×3 (05:54→21:47)
[2018-06-19] MEDS: Amiodarone 200 MG Tablet PO ×3 (06:05→21:47)
[2018-06-19 06:44] LABS: Anion Gap 11 (5-15); BUN 31 mg/dL (7-18); BUN/Creat Ratio 17.9 RATIO (10-20); Calcium,Total 8.1 mg/dL (8.5-10.1); Chloride 101 mmol/L (98-107); Creatinine, Serum 1.73 mg/dL (0.70-1.30); EST Glomerular Filtration Rate 43 mL/min (>60); Est Glom Filt Rate - Afr Amer 53 mL/min (>60); Glucose 146 mg/dL (74-106); Potassium 3.5 mmol/L (3.5-5.1); Sodium Level 139 mmol/L (136-145)
[2018-06-19 07:46] LABS: Bedside Glucose 151 mg/dL (70-110)
--- NOTE | 2018-06-19 10:35 | PCM.PN.CARD ---
Subjectve: Patient doing better this morning, heart rate occasionally tachycardic but under better control after increasing beta-brayan yesterday. Still with ongoing amiodarone loading p.o. No chest pain or anginal symptoms. Patient sleeping in his reclining chair without difficulty breathing. Telemetry showed atrial fibrillation with rapid ventricular response. Objective: Vital Signs Temp Pulse Resp BP Pulse Ox 97.8 F 46 L 18 119/75 96 06/19/18 08:35 06/19/18 08:35 06/19/18 08:35 06/19/18 08:35 06/19/18 08:35 Oxygen Flow Rate (L/min) 2 Oxygen Delivery Method Room Air Weight: 394 lb 6.511 oz Body Mass Index (BMI) 35.8 Intake and Output for Last 24 Hours 06/17/18 06/18/18 06/19/18 23:59 23:59 23:59 Intake Total 1460 / 1460 960 / 960 170 / 170 Balance 1460 / 1460 960 / 960 170 / 170 General: Awake, Alert, Oriented x 3 HEENT: PERRL, EOMI, Sclera Non Icteric Neck: Supple, Good ROM, No Lymph Node Enlargement Lungs: Clear to auscultation Cardiovascular: Irregular Rhythm, Normal S1, Normal S2, No Murmurs, No Rubs, No Gallops Vascular: No Carotid Bruits, Normal Femoral Pulses, Normal Radial Pulses, Normal Dorsalis Pedal Pulse, Normal Posterior Tibial Pulses Abdomen: Bowel Sounds Present, Soft, Non Tender, No HSM, No Organomegaly Extremities: No Cyanosis, No Clubbing, Bilateral Edema +1 Neurological: No Focal Motor or Sensory Deficit 06/19/18 05:42: Sodium 139, Potassium 3.5, Chloride 101, Carbon Dioxide 27.0, Anion Gap 11, BUN 31 H, Creatinine 1.73 H, Est GFR (MDRD) Af Amer 53 L, Est GFR (MDRD) Non-Af 43 L, BUN/Creatinine Ratio 17.9, Glucose 146 H, Calcium 8.1 L Rhythm: EKG: ECHO: Stress Test: Cardiac Cath: PCI: CT Surgery: Holter monitor: EPS: PPM: CXR: Chest CT Scan: Medical Necessity - Tobacco Use Smoking Status: Former smoker Tobacco Use: Non-smoker Assessment/Plan 1. Cardiomyopathy: The patient presents with new onset congestive heart failure and biventricular failure, responding well to IV diuretic therapy, beta-brayan, initial IV amiodarone and now p.o. amiodarone loading. He has chronic renal insufficiency making JUAN inhibitors and ARB somewhat contraindicated. Would recommend starting hydralazine 10 mg p.o. 3 times daily. In addition he still has edema in his legs and is in a positive fluid balance despite IV Lasix therapy assuming this is correct. The patient reports marked improvement abdominal bloating, would recommend switching him from IV Lasix to Lasix 80 mg p.o. twice daily with respect to his chronic renal insufficiency. Recommended a 1500 cc fluid restriction as well. Patient will require a left and right heart catheterization by Dr. Celaya as an outpatient. In addition he will continue baby aspirin therapy going forward. We will hold off on Plavix until patient is ready to undergo catheterization. 2. Atrial fibrillation: Patient has been loaded with IV amiodarone and switch to amiodarone 200 mg p.o. 3 times daily. He will continue this for 2 more days time followed by switching him to 200 mg p.o. daily. Patient's heart rate was still not controlled yesterday so beta-brayan was increased to Lopressor 100 mg p.o. twice daily which controlled his heart rate much better as of this morning. Would recommend continuing amiodarone and beta-brayan going forward. Hopefully the patient will undergo chemical cardioversion and maintenance of same with combination of beta-brayan and amiodarone. 3. Hyperlipidemia: Continue statin based medications for high risk coronary artery disease. 4. The patient reportedly requires evaluation by GI, will hold off on catheterization until this is been completed. The patient denies any bright red blood per rectum or black tarry stools. 5. Patient may be discharged home if he is tolerating p.o. Lasix and p.o. hydralazine and is ambulated without difficulty. Recommended to use Juan bandages at home for his legs to facilitate venous return. Would not object to keep the patient 1 more day for medical observation and monitoring of his heart rate and rhythm. Thank you very much for the opportunity to participate the cardiac care of your patient. Patient will be seen by Dr. Celaya tomorrow. Code Visit Inpatient E&M: [id number] Subs Hosp L2
[2018-06-19] MEDS: Metoprolol Tartrate 100 MG Tablet PO ×2 (10:59→21:47)
[2018-06-19] MEDS: Furosemide 80 MG Tablet PO (10:59)
[2018-06-19] MEDS: Pantoprazole Sodium 40 MG Tablet PO (10:59)
[2018-06-19] MEDS: Nystatin Powder 15gm Bottle 1 APPLIC TOPICAL ×2 (10:59→21:49)
[2018-06-19] MEDS: Insulin Lispro 100 UNIT/ML INSULN.PEN SC ×3 (11:03→21:47)
[2018-06-19 11:15] LABS: Bedside Glucose 252 mg/dL (70-110)
--- NOTE | 2018-06-19 12:49 | PCM.PN.HOSP ---
Patient Problems: Active and Suspected Problems Atrial fibrillation with RVR (Acute) Heart failure with reduced ejection fraction (Acute) NSTEMI (non-ST elevated myocardial infarction) (Acute) Subjective: Earlier patient was doing well--no chest pain, shortness of breath. Plan was for discharge, however, pt became diaphoretic and short of breath. Vitals/I&O's: Vital Signs Temp Pulse Resp BP Pulse Ox 36.3 C L 101 H 18 161/122 H 95 06/19/18 10:57 06/19/18 12:41 06/19/18 10:57 06/19/18 12:41 06/19/18 12:41 Oxygen Flow Rate (L/min) 2 Oxygen Delivery Method Nasal Cannula Weight: 178.9 kg Body Mass Index (BMI) 35.8 Intake and Output for Last 24 Hours 06/17/18 06/18/18 06/19/18 23:59 23:59 23:59 Intake Total 1460 / 1460 960 / 960 170 / 170 Balance 1460 / 1460 960 / 960 170 / 170 General: Alert, - - diaphoretic. HEENT: Atraumatic, Normocephalic Oral: Moist Mucosa, No Gingival or Mucosal Lesions/ Ulcerations Neck: No Nodes, Thyroid Normal Size and Texture Lungs: Clear to auscultation, Normal air movement, No rhonchi, No wheeze Cardiovascular: Regular rate, Regular Rhythm, Normal S1, Normal S2, No murmurs Abdomen: Bowel Sounds Present, Soft, Non Tender, Non-Distended, No Hepato-splenomegaly Extremities: No Calf Tenderness, Edema, - - swelling, warmth LUE. Skin: - - venous stasis dermatitis Musculoskeletal: No Tenderness to Palpation of Joints or Extremities, No Muscle Wasting Neurological: Muscle tone normal, Sensory exam intact to light touch and pain Psych/Mental Status: Anxious, Flat Affect Laboratory Results 06/18/18 16:29: POC Glucose 183 H 06/18/18 20:53: POC Glucose 185 H 06/19/18 05:42: Sodium 139, Potassium 3.5, Chloride 101, Carbon Dioxide 27.0, Anion Gap 11, BUN 31 H, Creatinine 1.73 H, Estim Creat Clear Calc 60.90, Est GFR (MDRD) Af Amer 53 L, Est GFR (MDRD) Non-Af 43 L, BUN/Creatinine Ratio 17.9, Glucose 146 H, Calcium 8.1 L 06/19/18 07:39: POC Glucose 151 H 06/19/18 11:02: POC Glucose 252 H Current Medications Acetaminophen (Tylenol) 650 mg PO Q6H PRN PRN PRN Reason: Mild Pain (1-3)/Temp > 100.7 F Last Admin: 06/18/18 21:06 Dose: 650 mg Amiodarone HCl (Cordarone) 200 mg PO TID [facility] Last Admin: 06/19/18 06:05 Dose: 200 mg Atorvastatin Calcium (Lipitor) 40 mg PO QHS [facility] Last Admin: 06/18/18 20:59 Dose: 40 mg Furosemide (Lasix) 80 mg PO BID@1000,1800 [facility] Last Admin: 06/19/18 10:59 Dose: 80 mg Hydralazine HCl (Apresoline) 10 mg PO TID [facility] Last Admin: 06/19/18 05:54 Dose: 10 mg Insulin Human Lispro (Humalog Kwikpen (Bkc)) 0 unit SC ACHS [facility]; Protocol Last Admin: 06/19/18 11:03 Dose: 4 units Ipratropium [place] (Atrovent) 0.5 mg INHALATION Q4H PRN PRN PRN Reason: sob Magnesium Hydroxide (Milk Of Magnesia) 30 ml PO DAILY PRN PRN Reason: Constipation Metoprolol Tartrate (Lopressor (Beta May)) 100 mg PO BID [facility] Last Admin: 06/19/18 10:59 Dose: 100 mg Nystatin (Mycostatin Powder) 1 applic TOPICAL BID [facility]; Protocol Last Admin: 06/19/18 10:59 Dose: 1 applicatio Pantoprazole Sodium (Protonix) 40 mg PO DAILY [facility] Last Admin: 06/19/18 10:59 Dose: 40 mg Sodium Chloride () 5 - 30 ml IV UD PRN PRN Reason: SALINE FLUSH Last Admin: 06/18/18 09:28 Dose: 10 ml Zolpidem Tartrate (Ambien (Generic)) 5 mg PO QHS PRN PRN PRN Reason: INSOMNIA Last Admin: 06/16/18 22:03 Dose: 5 mg Medical Necessity - Tobacco Use Smoking Status: Former smoker Tobacco Use: Non-smoker Assessment/Plan All Active Problems Shortness of breath (Acute) Heart palpitations (Acute) Atrial fibrillation with RVR (Acute) Heart failure with reduced ejection fraction (Acute) NSTEMI (non-ST elevated myocardial infarction) (Acute) 1. acute HFrEF EF 15% from echo on 06/15/18 Still volume overloaded continue lasix 80 BID not candidate for ACEi nor ARB given CKD will need LHC after GI eval completed 2. afib RVR improved on Amio 200 TID for 2 more days, then daily continue metoprolol to 100 BID no OAC given heme positive stools 3. Heme positive stools. follow up with GI as outpt, after medically stabilized PPI 4. CKD 3, presumed (no baseline available) monitor avoid nephrotoxic agents. 5. DVT proph: SCDs. 6. HTN: fair control started on Hydralazine 10 TID monitor 7. DM2 start glimeperide 1mg continue SSI will need glucometer,etc. at home 8. Diaphoresis hemodynamically stable MBS 200 recycle troponin 9. Disposition: pending work up for #8 and patient's condition. Discharge was originally for today until this event RX written out today, before his diaphoretic episode 10. RADHAE SVT 2/2 IV warm compresses Code Visit Inpatient E&M: [id number] [facility] Hosp L3
--- NOTE | 2018-06-19 12:55 | EKG12_ITS ---
Test Reason : CP Blood Pressure : / mmHG Vent. Rate : 106 BPM Atrial Rate : 110 BPM P-R Int : 000 ms QRS Dur : 102 ms QT Int : 390 ms P-R-T Axes : 000 012 093 degrees QTc Int : 518 ms Atrial fibrillation with rapid ventricular response Possible Inferior infarct (cited on or before 14-JUN-2018) Anterior infarct (cited on or before 14-JUN-2018) Abnormal ECG When compared with ECG of 14-JUN-2018 09:57, Vent. rate has decreased BY 57 BPM Confirmed by CAMERON CONN, ZEYAD ([id number]), editorial manager ANA MARIA FOX ([id number]) on 06/22/2018 11:30:54 AM Referred By: Elias Stein Confirmed By:ZEYAD BARNES MD
--- NOTE | 2018-06-19 12:56 | PN_ITS ---
Patient Problems: Active and Suspected Problems Atrial fibrillation with RVR (Acute) Heart failure with reduced ejection fraction (Acute) NSTEMI (non-ST elevated myocardial infarction) (Acute) Subjective: Earlier patient was doing well--no chest pain, shortness of breath. Plan was for discharge, however, pt became diaphoretic and short of breath. Vitals/I&O's: Vital Signs Temp Pulse Resp BP Pulse Ox 36.3 C L 101 H 18 161/122 H 95 06/19/18 10:57 06/19/18 12:41 06/19/18 10:57 06/19/18 12:41 06/19/18 12:41 Oxygen Flow Rate (L/min) 2 Oxygen Delivery Method Nasal Cannula Weight: 178.9 kg Body Mass Index (BMI) 35.8 Intake and Output for Last 24 Hours 06/17/18 06/18/18 06/19/18 23:59 23:59 23:59 Intake Total 1460 / 1460 960 / 960 170 / 170 Balance 1460 / 1460 960 / 960 170 / 170 General: Alert, - - diaphoretic. HEENT: Atraumatic, Normocephalic Oral: Moist Mucosa, No Gingival or Mucosal Lesions/ Ulcerations Neck: No Nodes, Thyroid Normal Size and Texture Lungs: Clear to auscultation, Normal air movement, No rhonchi, No wheeze Cardiovascular: Regular rate, Regular Rhythm, Normal S1, Normal S2, No murmurs Abdomen: Bowel Sounds Present, Soft, Non Tender, Non-Distended, No Hepato- splenomegaly Extremities: No Calf Tenderness, Edema, - - swelling, warmth LUE. Skin: - - venous stasis dermatitis Musculoskeletal: No Tenderness to Palpation of Joints or Extremities, No Muscle Wasting Neurological: Muscle tone normal, Sensory exam intact to light touch and pain Psych/Mental Status: Anxious, Flat Affect Laboratory Results 06/18/18 16:29: POC Glucose 183 H 06/18/18 20:53: POC Glucose 185 H 06/19/18 05:42: Sodium 139, Potassium 3.5, Chloride 101, Carbon Dioxide 27.0, Anion Gap 11, BUN 31 H, Creatinine 1.73 H, Estim Creat Clear Calc 60.90, Est GFR (MDRD) Af Amer 53 L, Est GFR (MDRD) Non-Af 43 L, BUN/Creatinine Ratio 17.9, Glucose 146 H, Calcium 8.1 L 06/19/18 07:39: POC Glucose 151 H 06/19/18 11:02: POC Glucose 252 H Current Medications Acetaminophen (Tylenol) 650 mg PO Q6H PRN PRN PRN Reason: Mild Pain (1-3)/Temp > 100.7 F Last Admin: 06/18/18 21:06 Dose: 650 mg Amiodarone HCl (Cordarone) 200 mg PO TID [facility] Last Admin: 06/19/18 06:05 Dose: 200 mg Atorvastatin Calcium (Lipitor) 40 mg PO QHS [facility] Last Admin: 06/18/18 20:59 Dose: 40 mg Furosemide (Lasix) 80 mg PO BID@1000,1800 [facility] Last Admin: 06/19/18 10:59 Dose: 80 mg Hydralazine HCl (Apresoline) 10 mg PO TID [facility] Last Admin: 06/19/18 05:54 Dose: 10 mg Insulin Human Lispro (Humalog Kwikpen (Bkc)) 0 unit SC ACHS [facility]; Protocol Last Admin: 06/19/18 11:03 Dose: 4 units Ipratropium [place] (Atrovent) 0.5 mg INHALATION Q4H PRN PRN PRN Reason: sob Magnesium Hydroxide (Milk Of Magnesia) 30 ml PO DAILY PRN PRN Reason: Constipation Metoprolol Tartrate (Lopressor (Beta May)) 100 mg PO BID [facility] Last Admin: 06/19/18 10:59 Dose: 100 mg Nystatin (Mycostatin Powder) 1 applic TOPICAL BID [facility]; Protocol Last Admin: 06/19/18 10:59 Dose: 1 applicatio Pantoprazole Sodium (Protonix) 40 mg PO DAILY [facility] Last Admin: 06/19/18 10:59 Dose: 40 mg Sodium Chloride () 5 - 30 ml IV UD PRN PRN Reason: SALINE FLUSH Last Admin: 06/18/18 09:28 Dose: 10 ml Zolpidem Tartrate (Ambien (Generic)) 5 mg PO QHS PRN PRN PRN Reason: INSOMNIA Last Admin: 06/16/18 22:03 Dose: 5 mg Medical Necessity - Tobacco Use Smoking Status: Former smoker Tobacco Use: Non-smoker Assessment/Plan All Active Problems Shortness of breath (Acute) Heart palpitations (Acute) Atrial fibrillation with RVR (Acute) Heart failure with reduced ejection fraction (Acute) NSTEMI (non-ST elevated myocardial infarction) (Acute) 1. acute HFrEF * EF 15% from echo on 06/15/18 * Still volume overloaded * continue lasix 80 BID * not candidate for ACEi nor ARB given CKD * will need LHC after GI eval completed 2. afib RVR * improved * on Amio 200 TID for 2 more days, then daily * continue metoprolol to 100 BID * no OAC given heme positive stools 3. Heme positive stools. * follow up with GI as outpt, after medically stabilized * PPI 4. CKD 3, * presumed (no baseline available) * monitor * avoid nephrotoxic agents. 5. DVT proph: SCDs. 6. HTN: * fair control * started on Hydralazine 10 TID * monitor 7. DM2 * start glimeperide 1mg * continue SSI * will need glucometer,etc. at home 8. Diaphoresis * hemodynamically stable * MBS 200 * recycle troponin 9. Disposition: * pending work up for #8 and patient's condition. * Discharge was originally for today until this event * RX written out today, before his diaphoretic episode 10. LUE SVT * 2/ IV * warm compresses Code Visit Inpatient E&M: [id number] Subs Hosp L3
--- NOTE | 2018-06-19 12:58 | RAD_ITS ---
STUDY: X-RAY CHEST REASON FOR EXAM: Male, 57 years old. Dyspnea TECHNIQUE: Single AP portable view of the chest. COMPARISON: 06/15/2018 FINDINGS: Lungs are hypoinflated. Decreased bibasilar airspace disease and effusions. Stable mild interstitial edema. Stable cardiomegaly. Remainder is unchanged RAD/Chest 1 View (Portable) IMPRESSION: Slightly decreased bibasilar airspace disease and effusions. Continued mild primary edema. Electronically Signed: Tahir Griggs DO at 15:34 EST Tel , Service support ,
[2018-06-19 13:30] LABS: Bedside Glucose 201 mg/dL (70-110)
[2018-06-19 16:31] LABS: Bedside Glucose 150 mg/dL (70-110)
[2018-06-19] MEDS: 0.9% NaCl Peripheral Flush Adult/Peds IV (18:37)
[2018-06-19] MEDS: Furosemide 100 MG/10 ML Vial 80 MG IV (18:38)
[2018-06-19] MEDS: Atorvastatin Calcium 40 MG Tablet PO (21:47)
[2018-06-19 21:56] LABS: Bedside Glucose 152 mg/dL (70-110)
[2018-06-20] VITALS (17 sets, daily range): BP systolic 102–132; BP diastolic 68–91; PULSE 64–119; RESP 18–20; TEMP 36.3–36.6; O2SAT 88–99
[2018-06-20] MEDS: hydrALAZINE 10 MG Tablet PO ×3 (05:18→22:25)
[2018-06-20] MEDS: Amiodarone 200 MG Tablet PO ×3 (05:18→22:25)
[2018-06-20 05:48] LABS: Absolute Lymphocyte Count 0.91 X10^3/ul (0.83-4.51); Absolute Neutrophil Count 4.7 X10^3/uL (2.0-7.7); Basophil# 0.03 X10^3/uL; Basophil% 0.4 % (0-1); Eosinophil# 0.03 X10^3/uL; Eosinophils% 0.4 % (0-5); Hematocrit 42.1 % (40-54); Hemoglobin 13.7 g/dl (13.0-16.5); Lymphocyte # 0.91 X10^3/ul (4.0); Lymphocyte % 13.1 % (19-41); Mean Corp Hgb Conc 32.5 g/gl (32-36); Mean Corpuscular Hgb 30.2 pg (27.0-32.0); Mean Corpuscular Volume 92.9 fL (80-94); Mean Platelet Vol. 10.7 fl (6.2-12.0); Monocyte# 1.27 X10^3/uL; Monocyte% 18.2 % (0-10); Neutrophil % 67.5 % (47-70); Platelet Count 193 K/mm3 (150-450); RBC Distribution Width CV 13.6 % (11.6-14.6); Red Blood Count 4.53 M/mm3 (4.6-6.2)
[2018-06-20 05:59] LABS: Anion Gap 12 (5-15); BUN 34 mg/dL (7-18); BUN/Creat Ratio 17.6 RATIO (10-20); Chloride 101 mmol/L (98-107); Creatinine, Serum 1.93 mg/dL (0.70-1.30); EST Glomerular Filtration Rate 38 mL/min (>60); Est Glom Filt Rate - Afr Amer 46 mL/min (>60); Estimated Creatinine Clearance 54.59 ml/min; Glucose 139 mg/dL (74-106); Potassium 3.6 mmol/L (3.5-5.1); Sodium Level 139 mmol/L (136-145)
[2018-06-20 06:05] LABS: POSITIVE COUNT NO; POSITIVE DIFFERENTIAL NO; POSITIVE MORPHOLOGY NO
[2018-06-20 06:51] LABS: Bedside Glucose 132 mg/dL (70-110)
--- NOTE | 2018-06-20 07:09 | PN.CARD_ITS ---
Subjectve: Patient seen and evaluated. Appears to be doing much better. Thinks he had better diuresis yesterday Objective: Vital Signs Temp Pulse Resp BP Pulse Ox 97.4 F L 115 H 20 H 132/91 H 95 06/20/18 04:45 06/20/18 05:18 06/20/18 04:45 06/20/18 05:18 06/20/18 04:45 Oxygen Flow Rate (L/min) 2 Oxygen Delivery Method Room Air Weight: 394 lb 13.566 oz Body Mass Index (BMI) 35.8 Intake and Output for Last 24 Hours 06/18/18 06/19/18 06/20/18 23:59 23:59 23:59 Intake Total 960 / 960 890 / 890 200 / 200 Balance 960 / 960 890 / 890 200 / 200 General: Awake, Alert, Oriented x 3 HEENT: PERRL, EOMI, Sclera Non Icteric Neck: Supple, Good ROM, No Lymph Node Enlargement Lungs: Diminished Gamaliel Bases Cardiovascular: Irregular Rhythm, Normal S1, Normal S2, No Murmurs, No Rubs, No Gallops Vascular: No Carotid Bruits, Normal Femoral Pulses, Normal Radial Pulses, Normal Dorsalis Pedal Pulse, Normal Posterior Tibial Pulses Abdomen: Bowel Sounds Present, Soft, Non Tender, No HSM, No Organomegaly Extremities: No Cyanosis, No Clubbing, Bilateral Edema +1 Neurological: No Focal Motor or Sensory Deficit Psych/Mental Status: Appropriate 06/19/18 13:20: Troponin I 0.050 H 06/19/18 15:50: Troponin I 0.061 H 06/19/18 19:03: Troponin I 0.058 H 06/20/18 05:25: WBC 7.0, RBC 4.53 L, Hgb 13.7, Hct 42.1, MCV 92.9, MCH 30.2, MCHC 32.5, RDW 13.6, RDW Differential 45.0 H, Plt Count 193, MPV 10.7, Immature Gran % (Auto) 0.400, Neut % (Auto) 67.5, Lymph % (Auto) 13.1 L, [place] % (Auto) 18.2 H, Eos % (Auto) 0.4, Baso % (Auto) 0.4, Absolute Neuts (auto) 4.7, Total Counted Not Reportable 06/20/18 05:25: Sodium 139, Potassium 3.6, Chloride 101, Carbon Dioxide 26.0, Anion Gap 12, BUN 34 H, Creatinine 1.93 H, Est GFR (MDRD) Af Amer 46 L, Est GFR (MDRD) Non-Af 38 L, BUN/Creatinine Ratio 17.6, Glucose 139 H, Calcium 8.0 L Rhythm: EKG: ECHO: Stress Test: Cardiac Cath: PCI: CT Surgery: Holter monitor: EPS: PPM: CXR: Chest CT Scan: Medical Necessity - Tobacco Use Smoking Status: Former smoker Tobacco Use: Non-smoker Assessment/Plan 1. Atrial fibrillation * Patient presents with atrial fibrillation the duration of which is not entirely clear at this particular time. He does have rapid ventricular response rate. * The recommendation will be to use beta brayan rate control together with the amiodarone * Echocardiogram demonstrated severe global left ventricular systolic dysfunction with an estimated ejection fraction of 15% . * HIs heme positive stools have abated and I would try him on low-dose Eliquis. * 2. Congestive heart failure-acute systolic * He appears to have shortness of breath which is been fairly short standing associated with pedal edema. The above is consistent with acute congestive heart failure. 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 He however does have coronary artery disease as well. * He would ultimately need a cardiac catheterization at some point. Beta- brayan and diuretic as BP tolerates and renal function allows * Depending on the findings of the above further recommendations will then be made. 3. Abnormal cardiac enzymes * He does have mildly abnormal cardiac enzymes. I suspect the above is likely secondary to demand ischemia. * * Start high intensity statin * Will have to hold off on aspirin as well as clopidogrel due to his apparent history of GI bleed * * * At this time he appears to be fairly stable. Though his ventricular response rate is not ideally controlled it looks like with the increase of the beta- brayan and the amiodarone he should be suitable later this afternoon hopefully to be discharged and followed up as an outpatient. Thank you for allowing me to participate in the care of your patient. Please don't hesitate to call if any issues arise
[2018-06-20] MEDS: Metoprolol Tartrate 100 MG Tablet PO ×2 (08:58→22:26)
[2018-06-20] MEDS: Furosemide 100 MG/10 ML Vial 80 MG IV ×2 (08:58→17:14)
[2018-06-20] MEDS: Pantoprazole Sodium 40 MG Tablet PO (08:59)
[2018-06-20] MEDS: Glimepiride 1 MG Tablet PO (09:00)
[2018-06-20] MEDS: APIXABAN 2.5 MG TABLET PO ×2 (09:01→21:09)
[2018-06-20] MEDS: Nystatin Powder 15gm Bottle 1 APPLIC TOPICAL ×2 (09:05→21:09)
[2018-06-20] MEDS: 0.9% NaCl Peripheral Flush Adult/Peds IV ×2 (09:05→17:14)
[2018-06-20 11:20] LABS: Bedside Glucose 168 mg/dL (70-110)
[2018-06-20] MEDS: Insulin Lispro 100 UNIT/ML INSULN.PEN SC ×2 (11:24→17:15)
--- NOTE | 2018-06-20 12:15 | CASEMGMT ---
Patient is ready for discharge today. SW will utilize [facility] prescription assistance program. Physician said patient was a . SW spoke with patient and gave him an enrollment form for [facility]. SW also gave him a list of [facility] facilities. SW spoke with him about paying for home O2. He seems a bit overwhelmed right now. SW will talk with patient and his family when they come in to [facility]. Jeanette JACINTO MSW
--- NOTE | 2018-06-20 15:58 | CASEMGMT ---
Per Shannen HOWARD, pt does qualify for home oxygen at this time. Per Dr. Stein, he is possibly planning on discharging pt home today. This RN CM to room to speak with pt regarding how he is going to pay for home oxygen as he is self pay and pt is unsure of how he is going to pay at this time. When asked if his son could help, pt states 'he has too many bills of his own.' Pt is tachypnic while speaking with this RN KIERRA at rest and Dr. Stein aware at this time, voices understanding. Dr. Stein attempted to call son to see if he would be able to help pt financially at this time. Son is possibly trying to work on buying a concentrator at this time. Pt is also going to need [facility] Rx assist from [facility] retail pharmacy to get the meds that he will need at discharge. Dr. Stein now states that pt will be discharged tomorrow. This RN CM to f/u with pt in the am. Abbi HOWARD CM
--- NOTE | 2018-06-20 16:13 | NURSING ---
wound photo: left arm
[2018-06-20] MEDS: dilTIAZem CD 120 MG Capsule PO (17:15)
[2018-06-20 17:26] LABS: Bedside Glucose 156 mg/dL (70-110)
--- NOTE | 2018-06-20 20:01 | PN_ITS ---
Subjective: Today, he qualifies for home O2 with pulse ox of 88% on room air when ambulating. Patient's heart rate has not been totally under adequate control at this time, cardiology added oral Cardizem today. I talked briefly with the patient and the patient's son today, patient's son wishes the patient to have rental oxygen for now and then he will look into perhaps purchasing an oxygen concentrator. - Physical Exam General: Alert, Oriented x3, Cooperative, No apparent distress, Well developed HEENT: Atraumatic, PERRLA, EOMI, Normocephalic Oral: Moist Mucosa Neck: Supple, Trachea Midline, Thyroid Normal Size and Texture Lungs: Normal air movement, No rhonchi, No wheeze, Diminished Cardiovascular: No murmurs, PMI Normal, Irregular Rate, No rub noted Abdomen: Bowel Sounds Present, Soft, Non Tender, Non-Distended, No hernias noted Extremities: Capillary Refill Less than 3 Seconds, Edema - Bilateral lower leg edema is noted +1 Skin: - - There is an area of induration on the patient's left upper arm, there are also noted to be 2 small water blisters on the patient's left upper arm over the anterior of the left upper arm Musculoskeletal: No Tenderness to Palpation of Joints or Extremities Neurological: Cranial nerves II-XII grossly intact, Neuro grossly intact, Sensory exam intact to light touch and pain, Coordination normal Psych/Mental Status: Normal Affect, Appropriate, Alert and oriented to time, place, person, mood and affect Vital Signs Temp Pulse Resp BP Pulse Ox 97.6 F L 115 H 18 102/71 94 06/20/18 14:53 06/20/18 14:59 06/20/18 14:53 06/20/18 14:54 06/20/18 14:53 Oxygen Flow Rate (L/min) [ 2 AMBULATION with Oxygen] Oxygen Flow Rate (L/min) [ 0 AMBULATING on Room Air] Oxygen Flow Rate (L/min) [At 0 REST on Room Air] Oxygen Flow Rate (L/min) 2 Oxygen Delivery Method Room Air Weight: 179.1 kg Body Mass Index (BMI) 35.8 Intake and Output for Last 24 Hours 06/18/18 06/19/18 06/20/18 23:59 23:59 23:59 Intake Total 960 / 960 890 / 890 640 / 640 Balance 960 / 960 890 / 890 640 / 640 Laboratory Tests Past 24 Hrs 06/19/18 06/20/18 06/20/18 19:03 05:25 05:25 WBC 7.0 RBC 4.53 L Hgb 13.7 Hct 42.1 MCV 92.9 MCH 30.2 MCHC 32.5 RDW 13.6 RDW Differential 45.0 H Plt Count 193 MPV 10.7 Immature Gran % (Auto) 0.400 Neut % (Auto) 67.5 Lymph % (Auto) 13.1 L [place] % (Auto) 18.2 H Eos % (Auto) 0.4 Baso % (Auto) 0.4 Absolute Neuts (auto) 4.7 Absolute Lymphs (auto) 0.91 Total Counted Not Reportable Sodium 139 Potassium 3.6 Chloride 101 Carbon Dioxide 26.0 Anion Gap 12 BUN 34 H Creatinine 1.93 H Estim Creat Clear Calc 54.59 Est GFR (MDRD) Af Amer 46 L Est GFR (MDRD) Non-Af 38 L BUN/Creatinine Ratio 17.6 Glucose 139 H Calcium 8.0 L Troponin I 0.058 H POC Glucose 06/20/18 06/20/18 06/20/18 17:14 11:17 06:45 POC Glucose 156 H 168 H 132 H 06/19/18 21:44 POC Glucose 152 H Medical Necessity - Tobacco Use Smoking Status: Former smoker Tobacco Use: Non-smoker Assessment/Plan All Active Problems Shortness of breath (Acute) Heart palpitations (Acute) Atrial fibrillation with RVR (Acute) Heart failure with reduced ejection fraction (Acute) NSTEMI (non-ST elevated myocardial infarction) (Acute) #1 new onset atrial fibrillation with rapid ventricular response-patient is now on a beta-brayan for rate control as well as amiodarone and Cardizem as of today, continue to monitor heart rate #2 acute systolic congestive heart failure-patient's ejection fraction is severely reduced with hypokinesis of the left ventricle noted and an EF of 15%. Patient continues to receive IV Lasix #3 melena-suspect upper GI bleed, patient will remain on a PPI, patient's hemoglobin has remained stable at this time, hemoglobin today was 13.7 #4 atherosclerotic heart disease-current extent unknown, most likely the patient will be scheduled for a cardiac catheterization as an outpatient #5 elevated troponins-possibly non-STEMI type II #6 noncompliance with medical regimen #7 type 2 diabetes-continue oral hypoglycemic agent #8 chronic kidney disease stage III probably secondary to type 2 diabetes, patient's creatinine today was 1.93, BMP will be repeated tomorrow #9 elevated TSH-significance is unknown, patient's T3 was slightly low but I feel this could be due to chronic illness, his T4 level is normal #10 chemical cellulitis of the patient's left upper arm secondary to amiodarone infusion, I opened 2 small water blisters on the patient's left upper arm today with a sterile needle after wiping the area with alcohol swabs, the area does not appear to be extremely reddened but it is indurated, I will continue to keep an eye on this area Code Visit Inpatient E&M: [id number] Subs Hosp L2
[2018-06-20] MEDS: Atorvastatin Calcium 40 MG Tablet PO (21:08)
[2018-06-20 21:16] LABS: Bedside Glucose 135 mg/dL (70-110)
[2018-06-21] VITALS (14 sets, daily range): BP systolic 94–120; BP diastolic 62–75; PULSE 91–115; RESP 18; TEMP 36.4–36.7; O2SAT 89–98
[2018-06-21] MEDS: Amiodarone 200 MG Tablet PO ×2 (06:14→13:56)
[2018-06-21 06:39] LABS: Anion Gap 8 (5-15); BUN 34 mg/dL (7-18); BUN/Creat Ratio 19.8 RATIO (10-20); Chloride 100 mmol/L (98-107); Creatinine, Serum 1.72 mg/dL (0.70-1.30); EST Glomerular Filtration Rate 44 mL/min (>60); Est Glom Filt Rate - Afr Amer 53 mL/min (>60); Estimated Creatinine Clearance 61.26 ml/min; Glucose 128 mg/dL (74-106); Potassium 3.4 mmol/L (3.5-5.1); Sodium Level 138 mmol/L (136-145)
[2018-06-21 07:06] LABS: Bedside Glucose 136 mg/dL (70-110)
[2018-06-21] MEDS: Glimepiride 1 MG Tablet PO (08:29)
[2018-06-21] MEDS: APIXABAN 2.5 MG TABLET PO (09:33)
[2018-06-21] MEDS: Pantoprazole Sodium 40 MG Tablet PO (09:33)
[2018-06-21] MEDS: Metoprolol Tartrate 100 MG Tablet PO (09:33)
[2018-06-21] MEDS: Furosemide 100 MG/10 ML Vial 80 MG IV (09:33)
[2018-06-21] MEDS: 0.9% NaCl Peripheral Flush Adult/Peds IV (09:34)
--- NOTE | 2018-06-21 10:14 | NURSING ---
In to reassess the left arm. there is much less redness and edema noted today. there are a few very small blistered areas that are stable. patient states pain has also improved. no drainage noted. will continue to monitor.
[2018-06-21 11:31] LABS: Bedside Glucose 167 mg/dL (70-110)
[2018-06-21] MEDS: dilTIAZem CD 120 MG Capsule PO (12:28)
[2018-06-21] MEDS: hydrALAZINE 10 MG Tablet PO (13:56)
--- NOTE | 2018-06-21 16:01 | CASEMGMT ---
Social Work Pt to use [facility] medication assistance program. Phone call placed to [facility] informing of this and that pt to be d/c today. Application sent to retail pharmacy. Physician to submit scripts to pharmacy. Pt is aware. MAGDALENO Ferraro
--- NOTE | 2018-06-21 16:32 | DCINST_ITS ---
You will use the following diet at home:: Calorie/Carbohydrate Controlled (specify 1200, 1400, etc) - 1800 rafi Your food should be the consistency of: Regular Your liquids should be the consistency of: Regular/Thin Discharge Activity: Return to Normal Activity Weight Bearing Status: Weight bearing as tolerated Additional Instructions: limit fluid intake to 50 ounces per day Allergies/Adverse Reactions: Allergies Penicillins [PCN] Allergy (Verified 06/14/18 10:19) Rash Medications to take at Discharge Atorvastatin Calcium [Lipitor] 40 mg PO QHS #30 tab 06/19/18 Furosemide [Lasix] 80 mg PO BID@1000,1800 #60 tab 06/19/18 Glimepiride [Amaryl] 1 mg PO DAILY #30 tab 06/19/18 Metoprolol Tartrate [Lopressor (beta brayan)] 100 mg PO BID #60 tab 06/19/18 Pantoprazole Sodium [Protonix] 40 mg PO DAILY #30 tab 06/19/18 Potassium Chloride [K-Dur] 20 meq PO DAILY #30 tab 06/19/18 hydrALAZINE [Apresoline] 10 mg PO TID #90 tab 06/19/18 ALPRAZolam [Xanax] 0.25 mg PO TID PRN #60 tablet 06/21/18 Acetaminophen [Tylenol Tablet] 650 mg PO Q6H PRN PRN tablet 06/21/18 Amiodarone HCl [Cordarone] 200 mg PO BID #60 tablet 06/21/18 Apixaban [Eliquis] 2.5 mg PO BID #60 tablet 06/21/18 Diltiazem CD [Cardizem CD] 120 mg PO DAILY #30 capsule 06/21/18 Nystatin Powder [Mycostatin Powder] 1 applic TOPICAL BID bottle 06/21/18 The following prescriptions were given: Atorvastatin Calcium [Lipitor] 40 mg PO QHS #30 tab Diltiazem CD [Cardizem CD] 120 mg PO DAILY #30 capsule Furosemide [Lasix] 80 mg PO BID@1000,1800 #60 tab Glimepiride [Amaryl] 1 mg PO DAILY #30 tab Pantoprazole Sodium [Protonix] 40 mg PO DAILY #30 tab Potassium Chloride [K-Dur] 20 meq PO DAILY #30 tab Amiodarone HCl [Cordarone] 200 mg PO BID #60 tablet Apixaban [Eliquis] 2.5 mg PO BID #60 tablet Metoprolol Tartrate [Lopressor (beta brayan)] 100 mg PO BID #60 tab ALPRAZolam [Xanax] 0.25 mg PO TID PRN #60 tablet PRN Reason: Anxiety/Restlessness/Sleep hydrALAZINE [Apresoline] 10 mg PO TID #90 tab Orders to be completed after discharge: Basic Metabolic Profile (BMP) Time Frame: 2 Weeks, Location: Laboratory Glucometer Location: None Selected Primary Care Physician: NOT,DEFINED [NON-STAFF] - Test Results: Test results from this visit will be discussed in further detail at your follow- up appointment, if applicable. Please Follow Up With: Ino Celaya MD When: call office to make appointment
--- NOTE | 2018-06-24 09:05 | PCM.DC.SUM ---
Discharge Date and Diagnosis Date of Admission: 06/14/18 Date of Discharge: 06/21/18 - Primary Discharge Diagnosis #1 new onset atrial fibrillation with rapid ventricular response #2 acute systolic congestive heart failure-patient's ejection fraction is severely reduced with hypokinesis of the left ventricle noted and an EF of 15% #3 melena probably secondary to upper GI bleed, site unknown #4 atherosclerotic heart disease #5 elevated troponins-etiology unclear #6 noncompliance with medical regimen #7 type 2 diabetes- #8 chronic kidney disease stage III probably secondary to type 2 diabetes #9 elevated TSH-significance is unknown #10 chemical cellulitis of the patient's left upper arm secondary to amiodarone infusion #11 ischemic cardiomyopathy #12 anxiety Hospital Course and Treatment Consultations 06/20/18 08:17 Consult: Onc/Wound/certified novell administrator Routine Comment: Reason for Consult:: left arm with edema and blisters Operations: None Procedures: 2-D Echocardiogram Summary of Care Provided: The patient is a 57 year old M seen in the emergency room at [facility] with chief complaint of palpitations, shortness of breath, and increasing edema in the lower extremities over 2 months. Patient's shortness of breath had been chronic over the last few weeks but had increased over 3 days prior to going to the emergency room. Patient complained of feeling palpitations over 3 days. EKG revealed the patient to be in atrial fibrillation with a rapid ventricular response of 163, and old inferior infarction was suspected, an anterior infarction was also [id number]. Patient's chest x-ray showed evidence of congestive heart failure, pulse ox on room air was 96%. Patient's CBC was unremarkable, creatinine was elevated at 1.47, troponin was slightly elevated at 0.129. Patient was given IV Cardizem for rate control in the emergency room, before being admitted to PCU, patient had a melanotic stool in the emergency room it was positive for blood. Patient was kept on IV Cardizem drip, admitted to PCU, cardiac enzymes were cycled these remained slightly elevated, he was seen in consultation by cardiology, and patient was placed on a PPI. Patient was placed on IV Lasix, due to his renal functions, an JAMES or an arm were not administered. Patient underwent an echocardiogram which revealed a severely reduced ejection fraction at 15%, patient had issues controlling his rate with rate limiting medications and finally had to be placed on amiodarone. Patient was hypoxic on ambulation but on the day of his discharge, did not require oxygen at the time of discharge. Cardiology did not feel the patient should have an EGD, they did recommend patient be placed on full anticoagulation at the time of discharge but no aspirin or Plavix. Patient's blood sugars were monitored and he was placed on an oral agent to control his diabetes. Patient had some anxiety issues prior to discharge, he was discharged on a small amount of Xanax as needed for anxiety. Patient had been noncompliant with outpatient treatment, he had undergone stent placement approximately 11 years ago in [place] but it never followed up with a stable manager on a consistent basis. On 06/21/18, patient was seen and examined and felt to be in stable condition for discharge. Physical exam: On examination he appeared in good health and spirits. Vital signs as documented. Skin warm and dry and without overt rashes. Neck without JVD. Lungs clear. Heart exam notable for regular rhythm, normal sounds and absence of murmurs, rubs or gallops. Abdomen unremarkable and without evidence of organomegaly, masses, or abdominal aortic enlargement. Extremities-generalized edema is noted over both lower extremities with +1-+2 pitting edema noted. Neuro: Cranial nerves II through XII are grossly intact, no focal motor deficits were noted, sensation to light touch and pinprick was intact. Psych: Patient is alert and oriented x3, he does not appear anxious or depressed - Physical Exam Vital Signs Temp Pulse Resp BP Pulse Ox 98.0 F 111 H 18 105/71 96 06/21/18 13:53 06/21/18 15:06 06/21/18 13:53 06/21/18 13:56 06/21/18 13:53 Oxygen Flow Rate (L/min) [ 2 AMBULATION with Oxygen] Oxygen Flow Rate (L/min) [ 0 AMBULATING on Room Air] Oxygen Flow Rate (L/min) [At 0 REST on Room Air] Oxygen Flow Rate (L/min) 2 Oxygen Delivery Method Room Air Weight: 176.2 kg Body Mass Index (BMI) 35.8 Discharge Activity: Return to Normal Activity Weight Bearing Status: Weight bearing as tolerated Home Medications: Medications to take at Discharge Atorvastatin Calcium [Lipitor] 40 mg PO QHS #30 tab 06/19/18 Furosemide [Lasix] 80 mg PO BID@1000,1800 #60 tab 06/19/18 Glimepiride [Amaryl] 1 mg PO DAILY #30 tab 06/19/18 Metoprolol Tartrate [Lopressor (beta brayan)] 100 mg PO BID #60 tab 06/19/18 Pantoprazole Sodium [Protonix] 40 mg PO DAILY #30 tab 06/19/18 Potassium Chloride [K-Dur] 20 meq PO DAILY #30 tab 06/19/18 hydrALAZINE [Apresoline] 10 mg PO TID #90 tab 06/19/18 ALPRAZolam [Xanax] 0.25 mg PO TID PRN #60 tablet 06/21/18 Acetaminophen [Tylenol Tablet] 650 mg PO Q6H PRN PRN tablet 06/21/18 Amiodarone HCl [Cordarone] 200 mg PO BID #60 tablet 06/21/18 Apixaban [Eliquis] 2.5 mg PO BID #60 tablet 06/21/18 Diltiazem CD [Cardizem CD] 120 mg PO DAILY #30 capsule 06/21/18 Nystatin Powder [Mycostatin Powder] 1 applic TOPICAL BID bottle 06/21/18 Following Prescrptions Were Given to Patient: Atorvastatin Calcium [Lipitor] 40 mg PO QHS #30 tab Diltiazem CD [Cardizem CD] 120 mg PO DAILY #30 capsule Furosemide [Lasix] 80 mg PO BID@1000,1800 #60 tab Glimepiride [Amaryl] 1 mg PO DAILY #30 tab Pantoprazole Sodium [Protonix] 40 mg PO DAILY #30 tab Potassium Chloride [K-Dur] 20 meq PO DAILY #30 tab Amiodarone HCl [Cordarone] 200 mg PO BID #60 tablet Apixaban [Eliquis] 2.5 mg PO BID #60 tablet Metoprolol Tartrate [Lopressor (beta brayan)] 100 mg PO BID #60 tab ALPRAZolam [Xanax] 0.25 mg PO TID PRN #60 tablet PRN Reason: Anxiety/Restlessness/Sleep hydrALAZINE [Apresoline] 10 mg PO TID #90 tab Other Amb Orders: Basic Metabolic Profile (BMP) Time Frame: 2 Weeks, Location: Laboratory Glucometer Location: None Selected Primary Care Physician: NOT,DEFINED [NON-STAFF] - Please Follow Up With: Ino Celaya MD When: call office to make appointment Disposition: Home Minutes spent on discharge:: 36 Patient Condition:: Stable Medical Necessity - Tobacco Use Smoking Status: Former smoker Tobacco Use: Non-smoker Meaningful Use Info Meaningful Use Diagnoses (Choose all that apply): CHF - CHF JAMES/ARB ordered at discharge?: No Reason JAMES/ARB not ordered?: Worsening renal disease Documented LVEF (%): 15 Code Visit Inpatient E&M: 04076 Disch Hosp
--- NOTE | 2018-06-24 09:16 | DS.PCM_ITS ---
Discharge Date and Diagnosis Date of Admission: 06/14/18 Date of Discharge: 06/21/18 - Primary Discharge Diagnosis #1 new onset atrial fibrillation with rapid ventricular response #2 acute systolic congestive heart failure-patient's ejection fraction is severely reduced with hypokinesis of the left ventricle noted and an EF of 15% #3 melena probably secondary to upper GI bleed, site unknown #4 atherosclerotic heart disease #5 elevated troponins-etiology unclear #6 noncompliance with medical regimen #7 type 2 diabetes- #8 chronic kidney disease stage III probably secondary to type 2 diabetes #9 elevated TSH-significance is unknown #10 chemical cellulitis of the patient's left upper arm secondary to amiodarone infusion #11 ischemic cardiomyopathy #12 anxiety Hospital Course and Treatment Consultations 06/20/18 08:17 Consult: Onc/Wound/licensed physical therapist assistant Routine Comment: Reason for Consult:: left arm with edema and blisters Operations: None Procedures: 2-D Echocardiogram Summary of Care Provided: The patient is a 57 year old M seen in the emergency room at [facility] with chief complaint of palpitations, shortness of breath, and increasing edema in the lower extremities over 2 months. Patient's shortness of breath had been chronic over the last few weeks but had increased over 3 days prior to going to the emergency room. Patient complained of feeling palpitations over 3 days. EKG revealed the patient to be in atrial fibrillation with a rapid ventricular response of 163, and old inferior infarction was suspected, an anterior infarction was also [id number]. Patient's chest x-ray showed evidence of congestive heart failure, pulse ox on room air was 96%. Patient's CBC was unremarkable, creatinine was elevated at 1.47, troponin was slightly elevated at 0.129. Patient was given IV Cardizem for rate control in the emergency room, before being admitted to PCU, patient had a melanotic stool in the emergency room it was positive for blood. Patient was kept on IV Cardizem drip, admitted to PCU, cardiac enzymes were cycled these remained slightly elevated, he was seen in consultation by cardiology, and patient was placed on a PPI. Patient was placed on IV Lasix, due to his renal functions, an JAMES or an arm were not administered. Patient underwent an echocardiogram which revealed a severely reduced ejection fraction at 15%, patient had issues controlling his rate with rate limiting medications and finally had to be placed on amiodarone. Patient was hypoxic on ambulation but on the day of his discharge, did not require oxygen at the time of discharge. Cardiology did not feel the patient should have an EGD, they did recommend patient be placed on full anticoagulation at the time of discharge but no aspirin or Plavix. Patient's blood sugars were monitored and he was placed on an oral agent to control his diabetes. Patient had some anxiety issues prior to discharge, he was discharged on a small amount of Xanax as needed for anxiety. Patient had been noncompliant with outpatient treatment, he had undergone stent placement approximately 11 years ago in [place] but it never followed up with a bleacher [employer] on a consistent basis. On 06/21/18, patient was seen and examined and felt to be in stable condition for discharge. Physical exam: On examination he appeared in good health and spirits. Vital signs as documented. Skin warm and dry and without overt rashes. Neck without JVD. Lungs clear. Heart exam notable for regular rhythm, normal sounds and absence of murmurs, rubs or gallops. Abdomen unremarkable and without evidence of organomegaly, masses, or abdominal aortic enlargement. Extremities- generalized edema is noted over both lower extremities with +1-+2 pitting edema noted. Neuro: Cranial nerves II through XII are grossly intact, no focal motor deficits were noted, sensation to light touch and pinprick was intact. Psych: Patient is alert and oriented x3, he does not appear anxious or depressed - Physical Exam Vital Signs Temp Pulse Resp BP Pulse Ox 98.0 F 111 H 18 105/71 96 06/21/18 13:53 06/21/18 15:06 06/21/18 13:53 06/21/18 13:56 06/21/18 13:53 Oxygen Flow Rate (L/min) [ 2 AMBULATION with Oxygen] Oxygen Flow Rate (L/min) [ 0 AMBULATING on Room Air] Oxygen Flow Rate (L/min) [At 0 REST on Room Air] Oxygen Flow Rate (L/min) 2 Oxygen Delivery Method Room Air Weight: 176.2 kg Body Mass Index (BMI) 35.8 Discharge Activity: Return to Normal Activity Weight Bearing Status: Weight bearing as tolerated Home Medications: Medications to take at Discharge Atorvastatin Calcium [Lipitor] 40 mg PO QHS #30 tab 06/19/18 Furosemide [Lasix] 80 mg PO BID@1000,1800 #60 tab 06/19/18 Glimepiride [Amaryl] 1 mg PO DAILY #30 tab 06/19/18 Metoprolol Tartrate [Lopressor (beta brayan)] 100 mg PO BID #60 tab 06/19/18 Pantoprazole Sodium [Protonix] 40 mg PO DAILY #30 tab 06/19/18 Potassium Chloride [K-Dur] 20 meq PO DAILY #30 tab 06/19/18 hydrALAZINE [Apresoline] 10 mg PO TID #90 tab 06/19/18 ALPRAZolam [Xanax] 0.25 mg PO TID PRN #60 tablet 06/21/18 Acetaminophen [Tylenol Tablet] 650 mg PO Q6H PRN PRN tablet 06/21/18 Amiodarone HCl [Cordarone] 200 mg PO BID #60 tablet 06/21/18 Apixaban [Eliquis] 2.5 mg PO BID #60 tablet 06/21/18 Diltiazem CD [Cardizem CD] 120 mg PO DAILY #30 capsule 06/21/18 Nystatin Powder [Mycostatin Powder] 1 applic TOPICAL BID bottle 06/21/18 Following Prescrptions Were Given to Patient: Atorvastatin Calcium [Lipitor] 40 mg PO QHS #30 tab Diltiazem CD [Cardizem CD] 120 mg PO DAILY #30 capsule Furosemide [Lasix] 80 mg PO BID@1000,1800 #60 tab Glimepiride [Amaryl] 1 mg PO DAILY #30 tab Pantoprazole Sodium [Protonix] 40 mg PO DAILY #30 tab Potassium Chloride [K-Dur] 20 meq PO DAILY #30 tab Amiodarone HCl [Cordarone] 200 mg PO BID #60 tablet Apixaban [Eliquis] 2.5 mg PO BID #60 tablet Metoprolol Tartrate [Lopressor (beta brayan)] 100 mg PO BID #60 tab ALPRAZolam [Xanax] 0.25 mg PO TID PRN #60 tablet PRN Reason: Anxiety/Restlessness/Sleep hydrALAZINE [Apresoline] 10 mg PO TID #90 tab Other Amb Orders: Basic Metabolic Profile (BMP) Time Frame: 2 Weeks, Location: Laboratory Glucometer Location: None Selected Primary Care Physician: NOT,DEFINED [NON-STAFF] - Please Follow Up With: Ino Celyaa MD When: call office to make appointment Disposition: Home Minutes spent on discharge:: 36 Patient Condition:: Stable Medical Necessity - Tobacco Use Smoking Status: Former smoker Tobacco Use: Non-smoker Meaningful Use Info Meaningful Use Diagnoses (Choose all that apply): CHF - CHF JAMES/ARB ordered at discharge?: No Reason JAMSE/ARB not ordered?: Worsening renal disease Documented LVEF (%): 15 Code Visit Inpatient E&M: 01215 Disch Hosp
== END 2018-06-21 18:00 | disposition home or self-care (01) | DRG 291 ==
LOC: ED 10:19 → PCU 13:11
PROVIDERS: Internal Medicine; Admitting Provider Internal Medicine; Emergency Provider Emergency Medicine; Referring Provider Internal Medicine; Visit Provider Internal Medicine
DX: I13.0 Hypertensive heart and chronic kidney disease with heart failure and stage 1 through stage 4 chronic kidney disease, or unspecified chronic kidney disease (principal); I50.21 Acute systolic (congestive) heart failure; K92.1 Melena; L03.114 Cellulitis of left upper limb; I48.91 Unspecified atrial fibrillation; I25.10 Atherosclerotic heart disease of native coronary artery without angina pectoris; Z66 Do not resuscitate; E78.5 Hyperlipidemia, unspecified; R74.8 Abnormal levels of other serum enzymes; I25.5 Ischemic cardiomyopathy; E11.22 Type 2 diabetes mellitus with diabetic chronic kidney disease; N18.3 Chronic kidney disease, stage 3 (moderate); F41.9 Anxiety disorder, unspecified; T80.89XA Other complications following infusion, transfusion and therapeutic injection, initial encounter; Y84.8 Other medical procedures as the cause of abnormal reaction of the patient, or of later complication, without mention of misadventure at the time of the procedure; T46.2X5A Adverse effect of other antidysrhythmic drugs, initial encounter; Z79.84 Long term (current) use of oral hypoglycemic drugs; Z95.5 Presence of coronary angioplasty implant and graft; Z87.891 Personal history of nicotine dependence; I25.2 Old myocardial infarction; Z91.19 Patient's noncompliance with other medical treatment and regimen
CPT/HCPCS: 36415; 71045; 80048; 82274; 82962; 83735; 84132; 84439; 84443; 84481; 84484; 85014; 85018; 85025; 85610; 93005; 93306; 94640; 99285; J7040; J7050; Q9957; A4216; C8929; J1940

== ENCOUNTER → 2018-06-27 14:53 | Outpatient (CLI) | payer MEDICAID, SELFPAY ==
[2018-06-27 13:48] VITALS: BMI 37.9
[2018-06-27 16:55] LABS: BNP,B-Type NATRIURETIC PEPTIDE 994.7 pg/mL (0-100)
[2018-06-27 17:17] LABS: Anion Gap 12 (5-15); BUN 19 mg/dL (7-18); BUN/Creat Ratio 11.2 RATIO (10-20); Calcium,Total 8.1 mg/dL (8.5-10.1); Chloride 101 mmol/L (98-107); EST Glomerular Filtration Rate 44 mL/min (>60); Est Glom Filt Rate - Afr Amer 54 mL/min (>60); Glucose 102 mg/dL (74-106); Potassium 3.1 mmol/L (3.5-5.1); Sodium Level 141 mmol/L (136-145)
== END ==
PROVIDERS: Referring Provider Nurse Practitioner Family; Visit Provider Nurse Practitioner Family
DX: R06.09 Other forms of dyspnea (principal)
CPT/HCPCS: 36415; 80048; 83880

== ENCOUNTER → 2018-07-25 10:07 | Day surgery (SDC) | payer MEDICAID, SELFPAY ==
[2018-06-27 13:48] VITALS: BMI 37.9
[2018-07-22 10:47] VITALS: BMI 37.9
[2018-07-25 10:35] LABS: Potassium 3.8 mmol/L (3.5-5.1)
--- OUTSIDE RECORDS SUMMARY | 2018-10-26 23:03 | XMS RPT_ITS ---
:1960 Author Organization OHIP Support Name Relationship Address Phone D Unavailable Unavailable Unavailable SHEFALI, DIANNE Unavailable [address] + [place] [address] D Unavailable Unavailable Unavailable SHEFALI, DIANNE Unavailable Unavailable + [place] [address] D Unavailable Unavailable Unavailable SHEFALI, DIANNE Unavailable Unavailable + [place] [address] D Unavailable Unavailable Unavailable SHEFALI, DIANNE Unavailable Unavailable + [place] [address] D Unavailable Unavailable Unavailable SHEFALI, DIANNE Unavailable [address] + [place] [address] D Unavailable Unavailable Unavailable SHEFALI, DIANNE Unavailable [address] + [place] [address] D Unavailable Unavailable Unavailable SHEFALI, DIANNE Unavailable Unavailable + [place] [address] D Unavailable Unavailable Unavailable SHEFALI, DIANNE Unavailable [address] + [place] [address] SHEFALI, DIANNE Unavailable Unavailable + UE Unavailable Unavailable Unavailable D Unavailable Unavailable Unavailable SHEFALI, DIANNE Unavailable [address] + [place] [address] SHEFALI, DIANNE Unavailable Unavailable + UE Unavailable Unavailable Unavailable D Unavailable Unavailable Unavailable SHEFALI, DIANNE Unavailable [address] + [place] [address] SHEFALI, DIANNE Unavailable Unavailable + UE Unavailable Unavailable Unavailable D Unavailable Unavailable Unavailable SHEFALI, DIANNE Unavailable [address] + [place] [address] SHEFALI, DIANNE Unavailable Unavailable + UE Unavailable Unavailable Unavailable D Unavailable Unavailable Unavailable SHEFALI DIANNE Unavailable [address] + [place] [address] SHEFALI DIANNE Unavailable Unavailable + UE Unavailable Unavailable Unavailable D Unavailable Unavailable Unavailable SHEFALI, DIANNE Unavailable [address] + [place] [address] SHEFALI DIANNE Unavailable Unavailable + UE Unavailable Unavailable Unavailable D Unavailable Unavailable Unavailable SHEFALI, DIANNE Unavailable [address] + [place] [address] SHEFALI, DIANNE Unavailable Unavailable + UE Unavailable Unavailable Unavailable D Unavailable Unavailable Unavailable SHEFALI, DIANNE Unavailable [address] + [place] [address] Care Team Providers Name Role Phone Belia, Ino Attending Unavailable Belia, Ino [facility] Unavailable Belia, Ino Attending Unavailable Belia, [place] Referring Unavailable Belia, [place] Attending Unavailable Belia, Ino Referring [facility] Unavailable Primay Care Physicia, No Primary Care Unavailable Tereletsky, Elias Admitting Unavailable Tereletsky, Elias Attending Unavailable Tereletsky, Elias Referring Unavailable Belia, Ino Consulting Unavailable Tereletsky, Elias Admitting Unavailable Tereletsky, Elias Attending Unavailable Tereletsky, Elias Referring Unavailable Primay Care Physicia, No Primary Care Unavailable Belia, [place] Consulting Unavailable Tereletsky, Elias Consulting Unavailable Tereletsky, Elias Admitting Unavailable Belia, [place] Attending Unavailable Tereletsky, Elias Referring Unavailable Primay Care Physicia, No Primary Care Unavailable Belia, [place] Consulting Unavailable Tereletsky, Elias Consulting Unavailable Tereletsky, Elias Admitting Unavailable Tereletsky, Elias Attending Unavailable Tereletsky, Elias Referring Unavailable Primay Care Physicia, No Primary Care Unavailable Belia, Ino Consulting Unavailable Tereletsky, Elias Consulting Unavailable Tereletsky, Elias Admitting Unavailable Belia, Ino Attending Unavailable Tereletsky, Elias Referring Unavailable Primay Care Physicia, No Primary Care Unavailable Belia, Ino Consulting Unavailable Wilton Carroll Consulting Unavailable Tereletsky, Elias Admitting Unavailable Jopperi, Wilton Attending Unavailable Tereletsky, Elias Referring Unavailable Primay Care Physicia, No Primary Care Unavailable Belia, [place] Consulting Unavailable Jopperi, Wilton Consulting Unavailable Tereletsky, Elias Admitting Unavailable Belia, [place] Attending Unavailable Tereletsky, Elias Referring Unavailable Primay Care Physicia, No Primary Care Unavailable Belia, [place] Consulting Unavailable Jopperi, Wilton Consulting Unavailable Tereletsky, Elias Admitting Unavailable Jopperi, Wilton Attending Unavailable Tereletsky, Elias Referring Unavailable Primay Care Physicia, No Primary Care Unavailable Belia, [place] Consulting Unavailable Jopperi, Wilton Consulting Unavailable Tereletsky, Elias Admitting Unavailable Von Rosas Attending Unavailable Tereletsky, Elias Referring Unavailable Primay Care Physicia, No Primary Care Unavailable Belia, [place] Consulting Unavailable Jopperi, Wilton Consulting Unavailable Tereletsky, Elias Admitting Unavailable Jopperi, Wilton Attending Unavailable Tereletsky, Elias Referring Unavailable Primay Care Physicia, No Primary Care Unavailable Belia, [place] Consulting Unavailable Jopperi, Wilton Consulting Unavailable Tereletsky, Elias Admitting Unavailable Von Rosas Attending Unavailable Tereletsky, Elias Referring Unavailable Primay Care Physicia, No Primary Care Unavailable Belia, [place] Consulting Unavailable Jopperi, Wilton Consulting Unavailable Tereletsky, Elias Admitting Unavailable Jopperi, Wilton Attending Unavailable Tereletsky, Elias Referring Unavailable Primay Care Physicia, No Primary Care Unavailable Belia, Ino Consulting Unavailable Jopperi, Wilton Consulting Unavailable Tereletsky, Elias Admitting Unavailable Belia, Ino Attending Unavailable Tereletsky, Elias Referring Unavailable Primay Care Physicia, No Primary Care Unavailable Belia, Ino Consulting Unavailable Tereletsky, Elias Consulting Unavailable Tereletsky, Elias Admitting Unavailable Tereletsky, Elias Attending Unavailable Tereletsky, Elias Referring Unavailable Primay Care Physicia, No Primary Care Unavailable Belia, [place] Consulting Unavailable Tereletsky, Elias Consulting Unavailable Tereletsky, Elias Admitting Unavailable Tereletsky, Elias Attending Unavailable Tereletsky, Elias Referring Unavailable Primay Care Physicia, No Primary Care Unavailable Belia, Ino Consulting Unavailable Tereletsky, Elias Consulting Unavailable Ant Torre Attending Unavailable Primay Care Physicia, No Referring Unavailable Ant Torre Attending Unavailable Ant Torre Referring Unavailable Primay Care Physicia, No Primary Care Unavailable Ino Celaya Attending Unavailable Elias Stein Referring Unavailable Belia [place] Attending Unavailable Wilton Carroll Referring Unavailable PROBLEMS PROBLEMS DATE TYPE CONDITION / CODE ATTENDING STATUS SOURCE 08/10/2018 Unknown Z01.818 - Encounter Ino Celaya Active [facility] for other [facility] preprocedural Hospital examination / Repository Z01.818(ICD-10) 08/16/2018 Unknown R94.31 - Abnormal Ino Celaya Active [place] electrocardiogram Community [ECG] [EKG] / Hospital R94.31(ICD-10) Repository 08/10/2018 Unknown R06.09 - Other forms Ant Torre Active [facility] of dyspnea / Community R06.09(ICD-10) Hospital Repository 07/06/2018 Unknown R00.2 - Palpitations / Ant Torre Active [place] R00.2(ICD-10) [facility] Hospital Repository 07/06/2018 Unknown I50.20 - Unspecified Ant Torre Active [facility] systolic (congestive) [facility] heart failure / Hospital I50.20(ICD-10) Repository 07/11/2018 Unknown I13.0 - Hypertensive Ino Celaya Active [facility] heart and chronic [facility] kidney disease with Hospital heart failure and Repository stage 1 through stage 4 chronic kidney disease, or unspecified chronic kidney disease / I13.0(ICD-10) 07/11/2018 Unknown I25.10 - Ino Celaya Active [facility] Atherosclerotic heart Community disease of [facility] coronary artery Repository without angina pectoris / I25.10(ICD-10) 07/25/2018 Unknown I48.91 - Unspecified Tereletsky, Active [place] atrial fibrillation / [facility] I48.91(ICD-10) Hospital Repository 06/20/2018 Unknown E11.9 - Type 2 Tereletsky, Active [facility] diabetes mellitus [facility] without complications Hospital / E11.9(ICD-10) Repository PROCEDURES PROCEDURES No Procedure Records FoundRESULTS RESULTS POTASSIUM Collected: 07/25/2018 Status: F Source: [facility] 10:15 AM [facility] REPOSITORY TYPE CODE TESTS RESULT OUT OF RANGE REFERENCE UNITS LAB L501.5600 3.5-5.1 mmol/L Normal K 3.8 Performed By: #### L501.5600 #### [facility] [address] [place], [address] BNP,B-TYPE NATRIURETIC Collected: 06/27/2018 Status: F Source: [facility] PEPTIDE 3:16 PM [facility] REPOSITORY TYPE CODE TESTS RESULT OUT OF RANGE REFERENCE UNITS LAB L503.6620 0-100 pg/mL High B-TYPE 994.7 MICHAELA PEP Performed By: #### L503.6620 #### [facility] [address] [place], [address] BASIC METABOLIC Collected: 06/27/2018 Status: F Source: [facility] PROFILE (BMP) 3:16 PM [facility] REPOSITORY TYPE CODE TESTS RESULT OUT OF RANGE REFERENCE UNITS LAB L501.0100 74-106 mg/dL Normal GLU 102 Result Comment: Fasting Glucose result from 100 to 125 mg/dL suggests IMPAIRED HOMEOSTASIS per A.D.A. criteria. Please note revised GLUCOSE reference range effective 2017. LAB L501.1000 7-18 mg/dL High BUN 19 LAB L501.1100 0.70-1.30 mg/dL High CREAT,SERUM 1.70 Result Comment: The validity of the calculated GFR AND GFRAA in patients over 70 years has not been determined. Clinical correlation is essential. LAB L501.1110 >60 mL/min Low EST GFR 44 Result Comment: Non- GFR Calc LAB L501.1115 >60 mL/min Low EST GFR - AA 54 Result Comment: GFR Calc LAB L501.1300 10-20 RATIO Normal BUN/CRE 11.2 LAB L501.2200 8.5-10.1 mg/dL Low CA 8.1 LAB L501.5300 136-145 mmol/L NA Normal 141 LAB L501.5600 3.5-5.1 mmol/L Low K 3.1 LAB L501.5900 98-107 mmol/L CL Normal 101 LAB L501.6100 21.0-32.0 mmol/L Normal CO2 28.0 LAB L501.6200 5-15 Normal GAP 12 Performed By: #### L500.2500 #### [facility] [address] [place], [address] 12 LEAD EKG PERFORMED Observed: 06/27/2018 Status: F Source: [facility] BY [facility] 1:48 PM [facility] REPOSITORY [facility] [address] [place] [address] 12 Lead EKG performed by [facility] 06/27/18 1347 MR#: [id number] Acct: [id number] Name: ARNOLD MEEHAN Rep #: [id number] : 1960 57 From: Ant Torre TANK PUMPER PANELBOARD-C Attending Dr: Ant Torre NP Status: DEP AMB Ordering Dr: Ant Torre Date: 06/27/18 Location: [facility] Sex: M C Admitted: BMS/12 Lead EKG performed by [facility] ECG Report Interpretation Atrial fibrillation -Frequent pvcs -ventricular trigeminy -Old anterior infarct. - Nonspecific T-abnormality. ABNORMAL Electronically signed on 07/13/2018 at 16:29 by Ino Celaya Software Version [id number] 07/13/18 1631 Date Ant TORRES CC: No Primary Care Physician Date Dictated: 06/27/181346 Date Transcribed: 06/27/181346 Commutator Presser: OTONIEL Signed DISCHARGE SUMMARY Observed: 06/24/2018 Status: F Source: [facility] 9:17 AM [facility] REPOSITORY [facility] Medical Records Department [address] [place] [address] Discharge Summary 06/24/18 0905 MR#: [id number] Acct: [id number] Name: ARNOLD MEEHAN Rep #: [id number] : 1960 57 From: Elias Stein DO PCP: Care Physician, No Primary Status: DIS IN Y Location: [facility] [id number] Discharge Date and Diagnosis Date of Admission: 06/14/18 Date of Discharge: 06/21/18 - Primary Discharge Diagnosis #1 new onset atrial fibrillation with rapid ventricular response #2 acute systolic congestive heart failure-patient's ejection fraction is severely reduced with hypokinesis of the left ventricle noted and an EF of 15% #3 melena probably secondary to upper GI bleed, site unknown #4 atherosclerotic heart disease #5 elevated troponins-etiology unclear #6 noncompliance with medical regimen #7 type 2 diabetes- #8 chronic kidney disease stage III probably secondary to type 2 diabetes #9 elevated TSH-significance is unknown #10 chemical cellulitis of the patient's left upper arm secondary to amiodarone infusion #11 ischemic cardiomyopathy #12 anxiety Hospital Course and Treatment Consultations 06/20/18 08:17 Consult: Onc/Wound/coat tailor Routine Comment: Reason for Consult:: left arm with edema and blisters Operations: None Procedures: 2-D Echocardiogram Summary of Care Provided: The patient is a 57 year old M seen in the emergency room at [facility] with chief complaint of palpitations, shortness of breath, and increasing edema in the lower extremities over 2 months. Patient's shortness of breath had been chronic over the last few weeks but had increased over 3 days prior to going to the emergency room. Patient complained of feeling palpitations over 3 days. EKG revealed the patient to be in atrial fibrillation with a rapid ventricular response of 163, and old inferior infarction was suspected, an anterior infarction was also [id number]. Patient's chest x-ray showed evidence of congestive heart failure, pulse ox on room air was 96%. Patient's CBC was unremarkable, creatinine was elevated at 1.47, troponin was slightly elevated at 0.129. Patient was given IV Cardizem for rate control in the emergency room, before being admitted to PCU, patient had a melanotic stool in the emergency room it was positive for blood. Patient was kept on IV Cardizem drip, admitted to PCU, cardiac enzymes were cycled these remained slightly elevated, he was seen in consultation by cardiology, and patient was placed on a PPI. Patient was placed on IV Lasix, due to his renal functions, an JAMES or an arm were not administered. Patient underwent an echocardiogram which revealed a severely reduced ejection fraction at 15%, patient had issues controlling his rate with rate limiting medications and finally had to be placed on amiodarone. Patient was hypoxic on ambulation but on the day of his discharge, did not require oxygen at the time of discharge. Cardiology did not feel the patient should have an EGD, they did recommend patient be placed on full anticoagulation at the time of discharge but no aspirin or Plavix. Patient's blood sugars were monitored and he was placed on an oral agent to control his diabetes. Patient had some anxiety issues prior to discharge, he was discharged on a small amount of Xanax as needed for anxiety. Patient had been noncompliant with outpatient treatment, he had undergone stent placement approximately 11 years ago in [place] but it never followed up with a helicopter pilot on a consistent basis. On 06/21/18, patient was seen and examined and felt to be in stable condition for discharge. Physical exam: On examination he appeared in good health and spirits. Vital signs as documented. Skin warm and dry and without overt rashes. Neck without JVD. Lungs clear. Heart exam notable for regular rhythm, normal sounds and absence of murmurs, rubs or gallops. Abdomen unremarkable and without evidence of organomegaly, masses, or abdominal aortic enlargement. Extremities-generalized edema is noted over both lower extremities with +1-+2 pitting edema noted. Neuro: Cranial nerves II through XII are grossly intact, no focal motor deficits were noted, sensation to light touch and pinprick was intact. Psych: Patient is alert and oriented x3, he does not appear anxious or depressed - Physical Exam Vital Signs Temp Pulse Resp BP Pulse Ox 98.0 F 111 H 18 105/71 96 06/21/18 13:53 06/21/18 15:06 06/21/18 13:53 06/21/18 13:56 06/21/18 13:53 Oxygen Flow Rate (L/min) [ 2 AMBULATION with Oxygen] Oxygen Flow Rate (L/min) [ 0 AMBULATING on Room Air] Oxygen Flow Rate (L/min) [At 0 REST on Room Air] Oxygen Flow Rate (L/min) 2 Oxygen Delivery Method Room Air Weight: 176.2 kg Body Mass Index (BMI) 35.8 Discharge Activity: Return to Normal Activity Weight Bearing Status: Weight bearing as tolerated Home Medications: Medications to take at Discharge Atorvastatin Calcium [Lipitor] 40 mg PO QHS #30 tab 06/19/18 Furosemide [Lasix] 80 mg PO BID@1000,1800 #60 tab 06/19/18 Glimepiride [Amaryl] 1 mg PO DAILY #30 tab 06/19/18 Metoprolol Tartrate [Lopressor (beta brayan)] 100 mg PO BID #60 tab 06/19/18 Pantoprazole Sodium [Protonix] 40 mg PO DAILY #30 tab 06/19/18 Potassium Chloride [K-Dur] 20 meq PO DAILY #30 tab 06/19/18 hydrALAZINE [Apresoline] 10 mg PO TID #90 tab 06/19/18 ALPRAZolam [Xanax] 0.25 mg PO TID PRN #60 tablet 06/21/18 Acetaminophen [Tylenol Tablet] 650 mg PO Q6H PRN PRN tablet 06/21/18 Amiodarone HCl [Cordarone] 200 mg PO BID #60 tablet 06/21/18 Apixaban [Eliquis] 2.5 mg PO BID #60 tablet 06/21/18 Diltiazem CD [Cardizem CD] 120 mg PO DAILY #30 capsule 06/21/18 Nystatin Powder [Mycostatin Powder] 1 applic TOPICAL BID bottle 06/21/18 Following Prescrptions Were Given to Patient: Atorvastatin Calcium [Lipitor] 40 mg PO QHS #30 tab Diltiazem CD [Cardizem CD] 120 mg PO DAILY #30 capsule Furosemide [Lasix] 80 mg PO BID@1000,1800 #60 tab Glimepiride [Amaryl] 1 mg PO DAILY #30 tab Pantoprazole Sodium [Protonix] 40 mg PO DAILY #30 tab Potassium Chloride [K-Dur] 20 meq PO DAILY #30 tab Amiodarone HCl [Cordarone] 200 mg PO BID #60 tablet Apixaban [Eliquis] 2.5 mg PO BID #60 tablet Metoprolol Tartrate [Lopressor (beta brayan)] 100 mg PO BID #60 tab ALPRAZolam [Xanax] 0.25 mg PO TID PRN #60 tablet PRN Reason: Anxiety/Restlessness/Sleep hydrALAZINE [Apresoline] 10 mg PO TID #90 tab Other Amb Orders: Basic Metabolic Profile (BMP) Time Frame: 2 Weeks, Location: Laboratory Glucometer Location: None Selected Primary Care Physician: NOT,DEFINED [NON-STAFF] - Please Follow Up With: Ino Celaya MD When: call office to make appointment Disposition: Home Minutes spent on discharge:: 36 Patient Condition:: Stable Medical Necessity - Tobacco Use Smoking Status: Former smoker Tobacco Use: Non-smoker Meaningful Use Info Meaningful Use Diagnoses (Choose all that apply): CHF - CHF JAMES/ARB ordered at discharge?: No Reason JAMES/ARB not ordered?: Worsening renal disease Documented LVEF (%): 15 Code Visit Inpatient E AND M: [id number] Disch Hosp 06/24/18 0917 <Electronically signed by Elias Stein DO> Date Elias Stein DO Cosigner Signature (if applicable): Date CC: No Primary Care Physician; Elias Stein DO Signed 12 LEAD ELECTROCARDIOGRAM Observed: 06/22/2018 Status: F Source: [place] 11:31 AM [facility] REPOSITORY [facility] Cardiovascular Services [address] [place] [address] 12 Lead EKG 06/19/18 1307 MR#: [id number] Acct: [id number] Name: ARNOLD MEEHAN Rep #: [id number] : 1960 57 From: Ino Celaya MD Attending Dr: Elias Stein DO Status: DIS IN Ordering Dr: Wilton Carroll DO Date: 06/19/18 Location: [facility] Sex: M C Admitted: 06/14/18 Test Reason : CP Blood Pressure : / mmHG Vent. Rate : 106 BPM Atrial Rate : 110 BPM P-R Int : 000 ms QRS Dur : 102 ms QT Int : 390 ms P-R-T Axes : 000 012 093 degrees QTc Int : 518 ms Atrial fibrillation with rapid ventricular response Possible Inferior infarct (cited on or before 14-JUN-2018) Anterior infarct (cited on or before 14-JUN-2018) Abnormal ECG When compared with ECG of 14-JUN-2018 09:57, Vent. rate has decreased BY 57 BPM Confirmed by BELIA CONN, INO ([id number]), assistant film editor ANA MARIA FOX ([id number]) on 06/22/2018 11:30:54 AM Referred By: Elias Stein Confirmed By:INO CELAYA MD 06/22/18 1131 Date Ino Celaya MD CC: No Primary Care Physician; Wilton Carroll DO; Elias Stein DO Signed DISCHARGE INSTRUCTION Observed: 06/21/2018 Status: F Source: [place] 4:32 PM [facility] REPOSITORY [facility] Medical Records Department [address] [place] [address] Instructions for Home/Discharge Instructions 06/21/18 1627 MR#: [id number] Acct: [id number] Name: ARNOLD MEEHAN Rep #: [id number] : 1960 57 From: Elias Stein DO PCP: Care Physician, No Primary Status: ADM IN You will use the following diet at home:: Calorie/Carbohydrate Controlled (specify 1200, 1400, etc) - 1800 rafi Your food should be the consistency of: Regular Your liquids should be the consistency of: Regular/Thin Discharge Activity: Return to Normal Activity Weight Bearing Status: Weight bearing as tolerated Additional Instructions: limit fluid intake to 50 ounces per day Allergies/Adverse Reactions: Allergies Penicillins [PCN] Allergy (Verified 06/14/18 10:19) Rash Medications to take at Discharge Atorvastatin Calcium [Lipitor] 40 mg PO QHS #30 tab 06/19/18 Furosemide [Lasix] 80 mg PO BID@1000,1800 #60 tab 06/19/18 Glimepiride [Amaryl] 1 mg PO DAILY #30 tab 06/19/18 Metoprolol Tartrate [Lopressor (beta brayan)] 100 mg PO BID #60 tab 06/19/18 Pantoprazole Sodium [Protonix] 40 mg PO DAILY #30 tab 06/19/18 Potassium Chloride [K-Dur] 20 meq PO DAILY #30 tab 06/19/18 hydrALAZINE [Apresoline] 10 mg PO TID #90 tab 06/19/18 ALPRAZolam [Xanax] 0.25 mg PO TID PRN #60 tablet 06/21/18 Acetaminophen [Tylenol Tablet] 650 mg PO Q6H PRN PRN tablet 06/21/18 Amiodarone HCl [Cordarone] 200 mg PO BID #60 tablet 06/21/18 Apixaban [Eliquis] 2.5 mg PO BID #60 tablet 06/21/18 Diltiazem CD [Cardizem CD] 120 mg PO DAILY #30 capsule 06/21/18 Nystatin Powder [Mycostatin Powder] 1 applic TOPICAL BID bottle 06/21/18 The following prescriptions were given: Atorvastatin Calcium [Lipitor] 40 mg PO QHS #30 tab Diltiazem CD [Cardizem CD] 120 mg PO DAILY #30 capsule Furosemide [Lasix] 80 mg PO BID@1000,1800 #60 tab Glimepiride [Amaryl] 1 mg PO DAILY #30 tab Pantoprazole Sodium [Protonix] 40 mg PO DAILY #30 tab Potassium Chloride [K-Dur] 20 meq PO DAILY #30 tab Amiodarone HCl [Cordarone] 200 mg PO BID #60 tablet Apixaban [Eliquis] 2.5 mg PO BID #60 tablet Metoprolol Tartrate [Lopressor (beta brayan)] 100 mg PO BID #60 tab ALPRAZolam [Xanax] 0.25 mg PO TID PRN #60 tablet PRN Reason: Anxiety/Restlessness/Sleep hydrALAZINE [Apresoline] 10 mg PO TID #90 tab Orders to be completed after discharge: Basic Metabolic Profile (BMP) Time Frame: 2 Weeks, Location: Laboratory Glucometer Location: None Selected Primary Care Physician: NOT,DEFINED [NON-STAFF] - Test Results: Test results from this visit will be discussed in further detail at your follow-up appointment, if applicable. Please Follow Up With: Ino Celaya MD When: call office to make appointment 06/21/18 6297 <Electronically signed by Elias Stein DO> Date Elias Stein DO CC: No Primary Care Physician; Ino Celaya MD BEDSIDE GLUCOSE Collected: 06/21/2018 Status: F Source: [place] 11:26 AM [facility] REPOSITORY TYPE CODE TESTS RESULT OUT OF REFERENCE UNITS RANGE LAB L501.080 70-110 mg/dL High BEDSIDE GLU 167 Result Comment: MANAGEMENT OF PATIENT CARE PER NURSING PROTOCOL Performed By: #### L501.080 #### [facility] Point of Care [address] [place] [address] BEDSIDE GLUCOSE Collected: 06/21/2018 Status: F Source: [place] 6:55 AM [facility] REPOSITORY TYPE CODE TESTS RESULT OUT OF REFERENCE UNITS RANGE LAB L501.080 70-110 mg/dL High BEDSIDE GLU 136 Result Comment: MANAGEMENT OF PATIENT CARE PER NURSING PROTOCOL Performed By: #### L501.080 #### [facility] Point of Care [address] [place] [address] BASIC METABOLIC Collected: 06/21/2018 Status: F Source: [facility] PROFILE (BMP) 6:00 AM [facility] REPOSITORY TYPE CODE TESTS RESULT OUT OF RANGE REFERENCE UNITS LAB L501.0100 74-106 mg/dL High GLU 128 Result Comment: Fasting Glucose result greater than or equal to 126 mg/dL suggests DIABETES MELLITUS per A.D.A. criteria. Please note revised GLUCOSE reference range effective 2017. LAB L501.1000 7-18 mg/dL High BUN 34 LAB L501.1100 0.70-1.30 mg/dL High CREAT,SERUM 1.72 Result Comment: The validity of the calculated GFR AND GFRAA in patients over 70 years has not been determined. Clinical correlation is essential. LAB L501.1110 >60 mL/min Low EST GFR 44 Result Comment: Non- GFR Calc LAB L501.1115 >60 mL/min Low EST GFR - AA 53 Result Comment: GFR Calc LAB L501.1255 ml/min Normal Estimated CRCL 61.26 LAB L501.1300 10-20 RATIO Normal BUN/CRE 19.8 LAB L501.2200 8.5-10 mg/dL Low .1 CA 8.0 LAB L501.5300 136-14 mmol/L Normal 5 NA 138 LAB L501.5600 3.5-5. mmol/L Low 1 K 3.4 LAB L501.5900 98-107 mmol/L Normal CL 100 LAB L501.6100 21.0-3 mmol/L Normal 2.0 CO2 30.0 LAB L501.6200 5-15 Normal GAP 8 Performed By: #### L500.2500 #### [facility] [address] [place], [address] BEDSIDE GLUCOSE Collected: 06/20/2018 Status: F Source: [place] 9:01 PM [facility] REPOSITORY TYPE CODE TESTS RESULT OUT OF REFERENCE UNITS RANGE LAB L501.080 70-110 mg/dL High BEDSIDE GLU 135 Result Comment: MANAGEMENT OF PATIENT CARE PER NURSING PROTOCOL Performed By: #### L501.080 #### [facility] Point of Care [address] [place] [address] BEDSIDE GLUCOSE Collected: 06/20/2018 Status: F Source: JE[place] 5:14 PM [facility] REPOSITORY TYPE CODE TESTS RESULT OUT OF REFERENCE UNITS RANGE LAB L501.080 70-110 mg/dL High BEDSIDE GLU 156 Result Comment: MANAGEMENT OF PATIENT CARE PER NURSING PROTOCOL Performed By: #### L501.080 #### [facility] Point of Care [address] [place] [address] BEDSIDE GLUCOSE Collected: 06/20/2018 Status: F Source: [place] 11:17 AM [facility] REPOSITORY TYPE CODE TESTS RESULT OUT OF REFERENCE UNITS RANGE LAB L501.080 70-110 mg/dL High BEDSIDE GLU 168 Result Comment: MANAGEMENT OF PATIENT CARE PER NURSING PROTOCOL Performed By: #### L501.080 #### [facility] Point of Care [address] [place] [address] BEDSIDE GLUCOSE Collected: 06/20/2018 Status: F Source: [place] 6:45 AM [facility] REPOSITORY TYPE CODE TESTS RESULT OUT OF REFERENCE UNITS RANGE LAB L501.080 70-110 mg/dL High BEDSIDE GLU 132 Result Comment: MANAGEMENT OF PATIENT CARE PER NURSING PROTOCOL Performed By: #### L501.080 #### [facility] Point of Care [address] [place] [address] BASIC METABOLIC Collected: 06/20/2018 Status: F Source: JE[place] PROFILE (BMP) 5:25 AM [facility] REPOSITORY TYPE CODE TESTS RESULT OUT OF RANGE REFERENCE UNITS LAB L501.0100 74-106 mg/dL High GLU 139 Result Comment: Fasting Glucose result greater than or equal to 126 mg/dL suggests DIABETES MELLITUS per A.D.A. criteria. Please note revised GLUCOSE reference range effective 2017. LAB L501.1000 7-18 mg/dL High BUN 34 LAB L501.1100 0.70-1.30 mg/dL High CREAT,SERUM 1.93 Result Comment: The validity of the calculated GFR AND GFRAA in patients over 70 years has not been determined. Clinical correlation is essential. LAB L501.1110 >60 mL/min Low EST GFR 38 Result Comment: Non- GFR Calc LAB L501.1115 >60 mL/min Low EST GFR - AA 46 Result Comment: GFR Calc LAB L501.1255 ml/min Normal Estimated CRCL 54.59 LAB L501.1300 10-20 RATIO Normal BUN/CRE 17.6 LAB L501.2200 8.5-10 mg/dL Low .1 CA 8.0 LAB L501.5300 136-14 mmol/L Normal 5 NA 139 LAB L501.5600 3.5-5. mmol/L Normal 1 K 3.6 LAB L501.5900 98-107 mmol/L Normal CL 101 LAB L501.6100 21.0-3 mmol/L Normal 2.0 CO2 26.0 LAB L501.6200 5-15 Normal GAP 12 Performed By: #### L500.2500 #### [facility] [address] [place], [address] CBC W/DIFF, AUTOMATED Collected: 06/20/2018 Status: F Source: [place] 5:25 AM [facility] REPOSITORY TYPE CODE TESTS RESULT OUT OF RANGE REFERENCE UNITS LAB L100.1000 4.4-11.0 K/mm3 Normal WBC 7.0 LAB L100.1200 4.6-6.2 M/mm3 Low RBC 4.53 LAB L100.1300 13.0-16.5 g/dl Normal HGB 13.7 LAB L100.1400 40-54 % Normal HCT 42.1 LAB L100.1500 80-94 fL Normal MCV 92.9 LAB L100.1600 27.0-32.0 pg Normal MCH 30.2 LAB L100.1700 32-36 g/gl Normal MCHC 32.5 LAB L100.1810 11.6-14.6 % Normal RDW CV 13.6 LAB L100.1820 35.1-43.9 fl High RDW SD 45.0 LAB L100.1900 150-450 K/mm3 Normal PLT 193 LAB L100.2000 6.2-12.0 fl Normal MPV 10.7 LAB L100.2100 47-70 % Normal NEUT% 67.5 LAB L100.2200 19-41 % Low LY% 13.1 LAB L100.2300 0-10 % High MONO% 18.2 LAB L100.2400 0-5 % Normal EO% 0.4 LAB L100.2500 0-1 % Normal BASO% 0.4 LAB L100.2550 0.0-0.9 % Normal IM GRAN % 0.400 Result Comment: IG% - Immature Granulocytes (promyelocytes, myelocytes and metamyelocytes) > 1% indicates that a LEFT SHIFT is Present. LAB L100.2620 2.0-7.7 X10 3/uL Normal Absolute Neut 4.7 LAB L100.2720 0.83-4.51 X10 3/ul Normal Absolute Lymph 0.91 Performed By: #### L100.0100 #### [facility] [address] [place], [place], [id number] BEDSIDE GLUCOSE Collected: 06/19/2018 Status: F Source: [place] 9:44 PM [facility] REPOSITORY TYPE CODE TESTS RESULT OUT OF REFERENCE UNITS RANGE LAB L501.080 70-110 mg/dL High BEDSIDE GLU 152 Result Comment: MANAGEMENT OF PATIENT CARE PER NURSING PROTOCOL Performed By: #### L501.080 #### [facility] Point of Care [address] [place], [place] [address] TROPONIN-I Collected: 06/19/2018 Status: F Source: [place] 7:03 PM [facility] REPOSITORY TYPE CODE TESTS RESULT OUT OF RANGE REFERENCE UNITS LAB L501.4010 <0.045 ng/mL High 0.058 TROPONIN-I Result Comment: TROPONIN-I EXPECTED VALUES <0.045 Negative 0.045 - 0.590 Consistent with Cardiac Damage > OR = 0.600 Critical Value Not every elevated troponin is indicative of NM. These values should be used with clinical judgement in examining the patient's clinical picture for diagnosis. To establish a diagnosis of NM versus myocardial injury, there must be a demonstrated rise and/or fall in the troponin values, in addition to ischemic symptoms, EKG changes, new regional wall motion abnormality, and/or angiographical evidence. PLEASE NOTE: REFERENCE RANGES EDITED 17 Performed By: #### L501.4010 #### [facility] [address] [place], [place], [address] BEDSIDE GLUCOSE Collected: 06/19/2018 Status: F Source: [place] 4:05 PM [facility] REPOSITORY TYPE CODE TESTS RESULT OUT OF REFERENCE UNITS RANGE LAB L501.080 70-110 mg/dL High BEDSIDE GLU 150 Result Comment: MANAGEMENT OF PATIENT CARE PER NURSING PROTOCOL Performed By: #### L501.080 #### [facility] Point of Care [address] [facility] [address] [place], [place] [address] TROPONIN-I Collected: 06/19/2018 Status: F Source: [place] 3:50 PM [facility] REPOSITORY TYPE CODE TESTS RESULT OUT OF RANGE REFERENCE UNITS LAB L501.4010 <0.045 ng/mL High 0.061 TROPONIN-I Result Comment: TROPONIN-I EXPECTED VALUES <0.045 Negative 0.045 - 0.590 Consistent with Cardiac Damage > OR = 0.600 Critical Value Not every elevated troponin is indicative of NM. These values should be used with clinical judgement in examining the patient's clinical picture for diagnosis. To establish a diagnosis of NM versus myocardial injury, there must be a demonstrated rise and/or fall in the troponin values, in addition to ischemic symptoms, EKG changes, new regional wall motion abnormality, and/or angiographical evidence. PLEASE NOTE: REFERENCE RANGES EDITED 17 Performed By: #### L501.4010 #### [facility] [address] [place], [place], [address] TROPONIN-I Collected: 06/19/2018 Status: F Source: [place] 1:20 PM [facility] REPOSITORY TYPE CODE TESTS RESULT OUT OF RANGE REFERENCE UNITS LAB L501.4010 <0.045 ng/mL High 0.050 TROPONIN-I Result Comment: TROPONIN-I EXPECTED VALUES <0.045 Negative 0.045 - 0.590 Consistent with Cardiac Damage > OR = 0.600 Critical Value Not every elevated troponin is indicative of NM. These values should be used with clinical judgement in examining the patient's clinical picture for diagnosis. To establish a diagnosis of NM versus myocardial injury, there must be a demonstrated rise and/or fall in the troponin values, in addition to ischemic symptoms, EKG changes, new regional wall motion abnormality, and/or angiographical evidence. PLEASE NOTE: REFERENCE RANGES EDITED 17 Performed By: #### L501.4010 #### [facility] [address] [place], [address] CHEST 1 VIEW Observed: 06/19/2018 Status: F Source: [place] (PORTABLE) 12:58 PM [facility] REPOSITORY [facility] Imaging Services [address] [place] [address] Chest 1 View (Portable) MR#: [id number] Acct: [id number] Name: ARNOLD MEEHAN Rep #: [id number] : 1960 57 From: Tahir Griggs DO PCP: Care Physician, No Primary Status: ADM IN Study: Chest 1 View (Portable) Date of Exam: 06/19/18 Exam# [id number] Ordering Dr: Wilton Carroll DO STUDY: X-RAY CHEST REASON FOR EXAM: Male, 57 years old. Dyspnea TECHNIQUE: Single AP portable view of the chest. COMPARISON: 06/15/2018 FINDINGS: Lungs are hypoinflated. Decreased bibasilar airspace disease and effusions. Stable mild interstitial edema. Stable cardiomegaly. Remainder is unchanged RAD/Chest 1 View (Portable) IMPRESSION: Slightly decreased bibasilar airspace disease and effusions. Continued mild primary edema. Electronically Signed: Tahir Griggs DO at 15:34 EST Tel , Service support , CC: No Primary Care Physician; Wilton Carroll DO Commutator Presser: Signed BEDSIDE GLUCOSE Collected: 06/19/2018 Status: F Source: [place] 12:40 PM [facility] REPOSITORY TYPE CODE TESTS RESULT OUT OF REFERENCE UNITS RANGE LAB L501.080 70-110 mg/dL High BEDSIDE GLU 201 Result Comment: MANAGEMENT OF PATIENT CARE PER NURSING PROTOCOL Performed By: #### L501.080 #### [facility] Point of Care [address] [place] [address] BEDSIDE GLUCOSE Collected: 06/19/2018 Status: F Source: [place] 11:02 AM [facility] REPOSITORY TYPE CODE TESTS RESULT OUT OF REFERENCE UNITS RANGE LAB L501.080 70-110 mg/dL High BEDSIDE GLU 252 Result Comment: MANAGEMENT OF PATIENT CARE PER NURSING PROTOCOL Performed By: #### L501.080 #### [facility] Point of Care [address] [place] [address] BEDSIDE GLUCOSE Collected: 06/19/2018 Status: F Source: [place] 7:39 AM [facility] REPOSITORY TYPE CODE TESTS RESULT OUT OF REFERENCE UNITS RANGE LAB L501.080 70-110 mg/dL High BEDSIDE GLU 151 Result Comment: MANAGEMENT OF PATIENT CARE PER NURSING PROTOCOL Performed By: #### L501.080 #### [facility] Point of Care [address] [place] [address] BASIC METABOLIC Collected: 06/19/2018 Status: F Source: [place] PROFILE (BMP) 5:42 AM [facility] REPOSITORY TYPE CODE TESTS RESULT OUT OF RANGE REFERENCE UNITS LAB L501.0100 74-106 mg/dL High GLU 146 Result Comment: Fasting Glucose result greater than or equal to 126 mg/dL suggests DIABETES MELLITUS per A.D.A. criteria. Please note revised GLUCOSE reference range effective 2017. LAB L501.1000 7-18 mg/dL High BUN 31 LAB L501.1100 0.70-1.30 mg/dL High CREAT,SERUM 1.73 Result Comment: The validity of the calculated GFR AND GFRAA in patients over 70 years has not been determined. Clinical correlation is essential. LAB L501.1110 >60 mL/min Low EST GFR 43 Result Comment: Non- GFR Calc LAB L501.1115 >60 mL/min Low EST GFR - AA 53 Result Comment: GFR Calc LAB L501.1255 ml/min Normal Estimated CRCL 60.90 LAB L501.1300 10-20 RATIO Normal BUN/CRE 17.9 LAB L501.2200 8.5-10 mg/dL Low .1 CA 8.1 LAB L501.5300 136-14 mmol/L Normal 5 NA 139 LAB L501.5600 3.5-5. mmol/L Normal 1 K 3.5 LAB L501.5900 98-107 mmol/L Normal CL 101 LAB L501.6100 21.0-3 mmol/L Normal 2.0 CO2 27.0 LAB L501.6200 5-15 Normal GAP 11 Performed By: #### L500.2500 #### [facility] [address] [facility] [address] BEDSIDE GLUCOSE Collected: 06/18/2018 Status: F Source: [place] 8:53 PM [facility] REPOSITORY TYPE CODE TESTS RESULT OUT OF REFERENCE UNITS RANGE LAB L501.080 70-110 mg/dL High BEDSIDE GLU 185 Result Comment: MANAGEMENT OF PATIENT CARE PER NURSING PROTOCOL Performed By: #### L501.080 #### [facility] Point of Care [address] [place] [address] BEDSIDE GLUCOSE Collected: 06/18/2018 Status: F Source: JE[place] 4:29 PM [facility] REPOSITORY TYPE CODE TESTS RESULT OUT OF REFERENCE UNITS RANGE LAB L501.080 70-110 mg/dL High BEDSIDE GLU 183 Result Comment: MANAGEMENT OF PATIENT CARE PER NURSING PROTOCOL Performed By: #### L501.080 #### [facility] Point of Care [address] [place] [address] BEDSIDE GLUCOSE Collected: 06/18/2018 Status: F Source: [place] 11:10 AM [facility] REPOSITORY TYPE CODE TESTS RESULT OUT OF REFERENCE UNITS RANGE LAB L501.080 70-110 mg/dL High BEDSIDE GLU 141 Result Comment: MANAGEMENT OF PATIENT CARE PER NURSING PROTOCOL Performed By: #### L501.080 #### [facility] Point of Care [address] [place] [address] BEDSIDE GLUCOSE Collected: 06/18/2018 Status: F Source: [place] 6:49 AM [facility] REPOSITORY TYPE CODE TESTS RESULT OUT OF REFERENCE UNITS RANGE LAB L501.080 70-110 mg/dL High BEDSIDE GLU 157 Result Comment: MANAGEMENT OF PATIENT CARE PER NURSING PROTOCOL Performed By: #### L501.080 #### [facility] Point of Care [address] [place] [address] BASIC METABOLIC Collected: 06/18/2018 Status: F Source: [place] PROFILE (BMP) 6:22 AM [facility] REPOSITORY TYPE CODE TESTS RESULT OUT OF RANGE REFERENCE UNITS LAB L501.0100 74-106 mg/dL High GLU 145 Result Comment: Fasting Glucose result greater than or equal to 126 mg/dL suggests DIABETES MELLITUS per A.D.A. criteria. Please note revised GLUCOSE reference range effective 2017. LAB L501.1000 7-18 mg/dL High BUN 36 LAB L501.1100 0.70-1.30 mg/dL High CREAT,SERUM 1.79 Result Comment: The validity of the calculated GFR AND GFRAA in patients over 70 years has not been determined. Clinical correlation is essential. LAB L501.1110 >60 mL/min Low EST GFR 42 Result Comment: Non- GFR Calc LAB L501.1115 >60 mL/min Low EST GFR - AA 51 Result Comment: GFR Calc LAB L501.1255 ml/min Normal Estimated CRCL 58.86 LAB L501.1300 10-20 RATIO High BUN/CRE 20.1 LAB L501.2200 8.5-10 mg/dL Low .1 CA 8.3 LAB L501.5300 136-14 mmol/L Normal 5 NA 138 LAB L501.5600 3.5-5. mmol/L Normal 1 K 3.5 LAB L501.5900 98-107 mmol/L Normal CL 100 LAB L501.6100 21.0-3 mmol/L Normal 2.0 CO2 26.0 LAB L501.6200 5-15 Normal GAP 12 Performed By: #### L500.2500 #### [facility] [address] [place], [address] BEDSIDE GLUCOSE Collected: 06/17/2018 Status: F Source: [place] 9:23 PM [facility] REPOSITORY TYPE CODE TESTS RESULT OUT OF REFERENCE UNITS RANGE LAB L501.080 70-110 mg/dL High BEDSIDE GLU 199 Result Comment: MANAGEMENT OF PATIENT CARE PER NURSING PROTOCOL Performed By: #### L501.080 #### [facility] Point of Care [address] [place] [address] BEDSIDE GLUCOSE Collected: 06/17/2018 Status: F Source: [place] 4:47 PM [facility] REPOSITORY TYPE CODE TESTS RESULT OUT OF REFERENCE UNITS RANGE LAB L501.080 70-110 mg/dL High BEDSIDE GLU 186 Result Comment: MANAGEMENT OF PATIENT CARE PER NURSING PROTOCOL Performed By: #### L501.080 #### [facility] Point of Care [address] [place] [address] CONSULTATION Observed: 06/17/2018 Status: F Source: [place] 4:06 PM [facility] REPOSITORY [facility] Medical Records Department [address] [place] [address] Consultation 06/14/18 1714 MR#: [id number] Acct: [id number] Name: ARNOLD MEEHAN Rep #: [id number] : 1960 57 From: Ino Celaya MD PCP: Care Physician, No Primary Status: ADM IN Location: [address] Reason for Consult Date of Consultation: 06/14/18 Reason for Consultation: Evaluation of shortness of breath. Pedal edema. Irregular heartbeat. History of Present Illness: The patient is a 57 year old M with a history of hypertension, coronary artery disease status post previous myocardial infarction and status post previous stenting in [place] over 4 years ago. He says that he has not seen a physician since then. He had been fairly stable until he started noticing pedal edema as well as shortness of breath. He did not have any palpitations and denies any chest pain. He was also gaining weight and could not get any restful sleep at night. He presented to the emergency room was noted to be in atrial for ablation with a rapid ventricular response rate as well as pedal edema. He was admitted to the telemetry care unit after he received intravenous Cardizem for rate control. He has not noticed any previous episodes of hematemesis or hematochezia though he was noted to have dark brown stools in the emergency room. Cardiology was called to see him due to his previous history of coronary artery disease, mildly abnormal troponin, pedal edema, and atrial fibrillation. [] Past Medical History Allergies/Adverse Reactions: Allergies Penicillins [PCN] Allergy (Verified 06/14/18 10:19) Rash Home Medications: Ambulatory Orders Medication Instructions Recorded NK 06/14/18 Lives: Alone Smoking Status: Former smoker Alcohol: None Drugs: None Review of Systems - Review of Systems General: Reports: Fatigue, Weakness. Denies: Fever, Night Sweats HEENT: Denies: Vision Change Cardiovascular: Reports: Shortness of Breath, Shortness of Breath at Rest, Shortness of Breath with Exertion, Peripheral Edema. Denies: Chest Discomfort, Orthopnea, PND, Palpitations, Lightheadedness, Dizziness, Near Syncope, Syncope Respiratory: Denies: Cough, Sputum Production, Hemoptysis Gastrointestinal: Denies: Indigestion, Hematemesis, Hematochezia, Melena Genitourinary: Denies: Dysuria, Hematuria Muscoloskeletal: Denies: Myalgias Skin: Denies: Rash Neurological: Denies: Dizziness Psychiatric: Denies: Anxiety Hematologic/ Lymphatic: Denies: Lymph Node Enlargement Subjectve: Pleasant gentleman in no apparent distress. Sitting in bed. Objective: Vital Signs Temp Pulse Resp BP Pulse Ox 98.2 F 109 H 22 H 112/86 H 98 06/14/18 16:40 06/14/18 16:40 06/14/18 16:40 06/14/18 16:40 06/14/18 16:40 Oxygen Flow Rate (L/min) 2 Oxygen Delivery Method Nasal Cannula Weight: 310 lb Body Mass Index (BMI) 35.8 General: Awake, Alert, Oriented x 3, Obese HEENT: PERRL, EOMI, Sclera Non Icteric Oral: Moist Mucosa Neck: Supple, Good ROM, No Lymph Node Enlargement Lungs: Diminished Gamaliel Bases Cardiovascular: Irregular Rhythm Vascular: No Carotid Bruits, Normal Femoral Pulses, Normal Radial Pulses, Normal Dorsalis Pedal Pulse, Normal Posterior Tibial Pulses Abdomen: Bowel Sounds Present, Soft, Non Tender, No HSM, No Organomegaly Extremities: No Cyanosis, No Clubbing, Bilateral Edema +2 Musculoskeletal: No Erythema Skin: No Rashes Lymphatic: No Lymph Node Enlargement Neurological: No Focal Motor or Sensory Deficit Psych/Mental Status: Appropriate 06/14/18 10:12: WBC 5.0, RBC 4.66, Hgb 14.6, Hct 44.0, MCV 94.4 H, MCH 31.3, MCHC 33.2, RDW 14.0, RDW Differential 46.4 H, Plt Count 114 L, MPV 9.5, Immature Gran % (Auto) 0.200, Neut % (Auto) 73.8 H, Lymph % (Auto) 12.9 L, [place] % (Auto) 12.5 H, Eos % (Auto) 0.2, Baso % (Auto) 0.4, Absolute Neuts (auto) 3.7, Total Counted Not Reportable 06/14/18 10:12: Sodium 135 L, Potassium 4.1, Chloride 97 L, Carbon Dioxide 25.0, Anion Gap 13, BUN 18, Creatinine 1.47 H, Est GFR (MDRD) Af Amer 63, Est GFR (MDRD) Non-Af 52 L, BUN/Creatinine Ratio 12.2, Glucose 154 H, Calcium 7.9 L, Troponin I 0.129 H 06/14/18 10:12: PT 15.0 H, INR 1.2 06/14/18 14:04: Troponin I 0.133 H Rhythm: EKG: Atrial fibrillation with rapid ventricular response rate of 163 bpm ECHO: Pending Assessment/Plan 1. Atrial fibrillation * Patient presents with atrial fibrillation the duration of which is not entirely clear at this particular time. He does have rapid ventricular response rate. * The recommendation will be to start intravenous Cardizem for rate control * Echocardiogram should be performed to assess his left ventricular function and guide therapy. * He cannot be anticoagulated due to his heme positive stools. 2. Congestive heart failure-acute systolic * He appears to have shortness of breath which is been fairly short standing associated with pedal edema. The above is consistent with acute congestive heart failure. My recommendation will be to diurese him aggressively and obtain an echocardiogram to assess his left ventricular function. * He would ultimately need a beta-brayan and an JAMES inhibitor * Depending on the findings of the above further recommendations will then be made. 3. Abnormal cardiac enzymes * He does have mildly abnormal cardiac enzymes. I suspect the above is likely secondary to demand ischemia. * We will eventually convert him to a beta-brayan * Start high intensity statin * Will have to hold off on aspirin as well as clopidogrel due to his apparent history of GI bleed * Thank you for allowing me to participate in the care of your patient. Please don't hesitate to call if any issues arise 06/17/18 1606 <Electronically signed by Ino Celaya MD> Date Ino Celaya MD Cosigner Signature (if applicable): Date CC: No Primary Care Physician; Ino Celaya MD; Elias Stein DO Signed BEDSIDE GLUCOSE Collected: 06/17/2018 Status: F Source: [place] 11:03 AM [facility] REPOSITORY TYPE CODE TESTS RESULT OUT OF REFERENCE UNITS RANGE LAB L501.080 70-110 mg/dL High BEDSIDE GLU 191 Result Comment: MANAGEMENT OF PATIENT CARE PER NURSING PROTOCOL Performed By: #### L501.080 #### [facility] Point of Care [address] [place] [address] BEDSIDE GLUCOSE Collected: 06/17/2018 Status: F Source: [place] 6:46 AM [facility] REPOSITORY TYPE CODE TESTS RESULT OUT OF REFERENCE UNITS RANGE LAB L501.080 70-110 mg/dL High BEDSIDE GLU 147 Result Comment: MANAGEMENT OF PATIENT CARE PER NURSING PROTOCOL Performed By: #### L501.080 #### [facility] Point of Care [address] [place] [address] CBC W/DIFF, AUTOMATED Collected: 06/17/2018 Status: F Source: [place] 6:05 AM [facility] REPOSITORY TYPE CODE TESTS RESULT OUT OF RANGE REFERENCE UNITS LAB L100.1000 4.4-11.0 K/mm3 Normal WBC 7.3 LAB L100.1200 4.6-6.2 M/mm3 Normal RBC 4.68 LAB L100.1300 13.0-16.5 g/dl Normal HGB 14.5 LAB L100.1400 40-54 % Normal HCT 43.1 LAB L100.1500 80-94 fL Normal MCV 92.1 LAB L100.1600 27.0-32.0 pg Normal MCH 31.0 LAB L100.1700 32-36 g/gl Normal MCHC 33.6 LAB L100.1810 11.6-14.6 % Normal RDW CV 13.5 LAB L100.1820 35.1-43.9 fl High RDW SD 44.4 LAB L100.1900 150-450 K/mm3 Normal PLT 155 LAB L100.2000 6.2-12.0 fl Normal MPV 10.7 LAB L100.2100 47-70 % Normal NEUT% 63.4 LAB L100.2200 19-41 % Low LY% 16.4 LAB L100.2300 0-10 % High MONO% 18.3 LAB L100.2400 0-5 % Normal EO% 1.1 LAB L100.2500 0-1 % Normal BASO% 0.5 LAB L100.2550 0.0-0.9 % Normal IM GRAN % 0.300 Result Comment: IG% - Immature Granulocytes (promyelocytes, myelocytes and metamyelocytes) > 1% indicates that a LEFT SHIFT is Present. LAB L100.2620 2.0-7.7 X10 3/uL Normal Absolute Neut 4.6 LAB L100.2720 0.83-4.51 X10 3/ul Normal Absolute Lymph 1.20 Performed By: #### L100.0100 #### [facility] [address] [place], [place], [address] BASIC METABOLIC Collected: 06/17/2018 Status: F Source: [place] PROFILE ([facility]) 6:05 AM [facility] REPOSITORY TYPE CODE TESTS RESULT OUT OF RANGE REFERENCE UNITS LAB L501.0100 74-106 mg/dL High GLU 135 Result Comment: Fasting Glucose result greater than or equal to 126 mg/dL suggests DIABETES MELLITUS per A.D.A. criteria. Please note revised GLUCOSE reference range effective 2017. LAB L501.1000 7-18 mg/dL High BUN 38 LAB L501.1100 0.70-1.30 mg/dL High CREAT,SERUM 1.80 Result Comment: The validity of the calculated GFR AND GFRAA in patients over 70 years has not been determined. Clinical correlation is essential. LAB L501.1110 >60 mL/min Low EST GFR 41 Result Comment: Non- GFR Calc LAB L501.1115 >60 mL/min Low EST GFR - AA 50 Result Comment: GFR Calc LAB L501.1255 ml/min Normal Estimated CRCL 58.54 LAB L501.1300 10-20 RATIO High BUN/CRE 21.1 LAB L501.2200 8.5-10 mg/dL Low .1 CA 8.2 LAB L501.5300 136-14 mmol/L Low 5 NA 134 LAB L501.5600 3.5-5. mmol/L Normal 1 K 3.7 LAB L501.5900 98-107 mmol/L Normal CL 100 LAB L501.6100 21.0-3 mmol/L Normal 2.0 CO2 24.0 LAB L501.6200 5-15 Normal GAP 10 Performed By: #### L500.2500 #### [facility] [place], [place], [address] MAGNESIUM Collected: 06/17/2018 Status: F Source: [place] 6:05 AM [facility] REPOSITORY Order Comment: Comments: add to am labs already drawn. TYPE CODE TESTS RESULT OUT OF RANGE REFERENCE UNITS LAB L501.5200 1.6-2.6 mg/dL Normal MG 1.8 Performed By: #### L501.5200 #### [facility] [address] [place], [place], [address] BEDSIDE GLUCOSE Collected: 06/16/2018 Status: F Source: [place] 10:07 PM [facility] REPOSITORY TYPE CODE TESTS RESULT OUT OF REFERENCE UNITS RANGE LAB L501.080 70-110 mg/dL High BEDSIDE GLU 153 Result Comment: MANAGEMENT OF PATIENT CARE PER NURSING PROTOCOL Performed By: #### L501.080 #### [facility] Point of Care [address] [place] [address] BEDSIDE GLUCOSE Collected: 06/16/2018 Status: F Source: [place] 4:20 PM [facility] REPOSITORY TYPE CODE TESTS RESULT OUT OF REFERENCE UNITS RANGE LAB L501.080 70-110 mg/dL High BEDSIDE GLU 157 Result Comment: MANAGEMENT OF PATIENT CARE PER NURSING PROTOCOL Performed By: #### L501.080 #### [facility] Point of Care [address] [place] [address] 12 LEAD ELECTROCARDIOGRAM Observed: 06/16/2018 Status: F Source: [place] 3:22 PM [facility] REPOSITORY [facility] Cardiovascular Services [address] [place] [address] 12 Lead EKG 06/14/18 0957 MR#: [id number] Acct: [id number] Name: ARNOLD MEEHAN Rep #: [id number] : 1960 57 From: Ino Celaya MD Attending Dr: Wilton Carroll DO Status: ADM IN Ordering Dr: Lewis Orlando MD Date: 06/14/18 Location: [facility] Sex: M C Admitted: 06/14/18 Test Reason : SOB Blood Pressure : / mmHG Vent. Rate : 163 BPM Atrial Rate : 170 BPM P-R Int : 000 ms QRS Dur : 102 ms QT Int : 306 ms P-R-T Axes : 000 -09 111 degrees QTc Int : 503 ms Atrial fibrillation with rapid ventricular response with premature ventricular or aberrantly conducted complexes Cannot rule out Inferior infarct , age undetermined Anterior infarct , age undetermined Abnormal ECG Confirmed by INO CELAYA MD ([id number]), assistant film editor ANA MARIA FOX ([id number]) on 06/16/2018 3:22:01 PM Referred By: Elias Stein Confirmed By:INO CELAYA MD 06/16/18 1522 Date Ino Celaya MD CC: No Primary Care Physician; Wilton Carroll DO; Lewis Orlando MD; Elias Stein DO Signed BEDSIDE GLUCOSE Collected: 06/16/2018 Status: F Source: [place] 11:16 AM [facility] REPOSITORY TYPE CODE TESTS RESULT OUT OF REFERENCE UNITS RANGE LAB L501.080 70-110 mg/dL High BEDSIDE GLU 196 Result Comment: MANAGEMENT OF PATIENT CARE PER NURSING PROTOCOL Performed By: #### L501.080 #### [facility] Point of Care [address] [place] [address] BEDSIDE GLUCOSE Collected: 06/16/2018 Status: F Source: [place] 6:49 AM [facility] REPOSITORY TYPE CODE TESTS RESULT OUT OF REFERENCE UNITS RANGE LAB L501.080 70-110 mg/dL High BEDSIDE GLU 175 Result Comment: MANAGEMENT OF PATIENT CARE PER NURSING PROTOCOL Performed By: #### L501.080 #### [facility] Point of Care [address] [place] [address] HH, HEMOGLOBIN AND Collected: 06/16/2018 Status: F Source: [place] HEMATOCRIT 5:55 AM [facility] REPOSITORY TYPE CODE TESTS RESULT OUT OF RANGE REFERENCE UNITS LAB L100.1300 13.0-16.5 g/dl Normal HGB 14.0 LAB L100.1400 40-54 % Normal HCT 42.4 Performed By: #### L100.0600 #### [facility] [address] [place], [address] BASIC METABOLIC Collected: 06/16/2018 Status: F Source: [place] PROFILE (BMP) 5:55 AM [facility] REPOSITORY TYPE CODE TESTS RESULT OUT OF RANGE REFERENCE UNITS LAB L501.0100 74-106 mg/dL High GLU 165 Result Comment: Fasting Glucose result greater than or equal to 126 mg/dL suggests DIABETES MELLITUS per A.D.A. criteria. Please note revised GLUCOSE reference range effective 2017. LAB L501.1000 7-18 mg/dL High BUN 38 LAB L501.1100 0.70-1.30 mg/dL High CREAT,SERUM 2.33 Result Comment: The validity of the calculated GFR AND GFRAA in patients over 70 years has not been determined. Clinical correlation is essential. LAB L501.1110 >60 mL/min Low EST GFR 31 Result Comment: Non- GFR Calc LAB L501.1115 >60 mL/min Low EST GFR - AA 37 Result Comment: GFR Calc LAB L501.1255 ml/min Normal Estimated CRCL 45.22 LAB L501.1300 10-20 RATIO Normal BUN/CRE 16.3 LAB L501.2200 8.5-10 mg/dL Low .1 CA 7.9 LAB L501.5300 136-14 mmol/L Normal 5 NA 136 LAB L501.5600 3.5-5. mmol/L Normal 1 K 3.9 LAB L501.5900 98-107 mmol/L Normal CL 101 LAB L501.6100 21.0-3 mmol/L Normal 2.0 CO2 22.0 LAB L501.6200 5-15 Normal GAP 13 Performed By: #### L500.2500 #### [facility] [address] [place], [address] BEDSIDE GLUCOSE Collected: 06/15/2018 Status: F Source: [place] 9:52 PM [facility] REPOSITORY TYPE CODE TESTS RESULT OUT OF REFERENCE UNITS RANGE LAB L501.080 70-110 mg/dL High BEDSIDE GLU 190 Result Comment: MANAGEMENT OF PATIENT CARE PER NURSING PROTOCOL Performed By: #### L501.080 #### [facility] Point of Care [address] [place] [address] BEDSIDE GLUCOSE Collected: 06/15/2018 Status: F Source: [place] 4:42 PM [facility] REPOSITORY TYPE CODE TESTS RESULT OUT OF REFERENCE UNITS RANGE LAB L501.080 70-110 mg/dL High BEDSIDE GLU 167 Result Comment: MANAGEMENT OF PATIENT CARE PER NURSING PROTOCOL Performed By: #### L501.080 #### [facility] Point of Care [address] [place] [address] ECHO, COMPLETE W/ Observed: 06/15/2018 Status: F Source: [place] CONTRAST 1:21 PM [facility] REPOSITORY [facility] Cardiovascular Services [address] [place], [place] [address] [address] Echo Complete W/ Contrast 06/15/18 1009 MR#: [id number] Acct: [id number] Name: ARNOLD MEEHAN Rep #: [id number] : 1960 57 From: Ino Celaya MD Attending Dr: Elias Stein DO Status: ADM IN Ordering Dr: Elias Stein DO Date: 06/14/18 Location: [facility] Sex: M C Admitted: 06/14/18 Reason For Study: CHF Procedure This was a 2D Doppler, Color Flow transthoracic echocardiogram. The study was technically difficult. Contrast injection was performed. Exam performed portable in patient room. Left Ventricle Severely dilated left ventricle. The estimated ejection fraction is 15 %. Unable to assess diastolic dysfunction due to arrhythmia. There is severe global hypokinesis of the left ventricle. Right Ventricle Normal RV size. Normal systolic function. Atria The left atrium is mildly enlarged. The right atrium is mildly enlarged. Mitral Valve Normal mitral valve. Moderate (2+) eccentric mitral valve insufficiency. Tricuspid Valve Normal tricuspid valve. Mild to moderate (1-2+) tricuspid valve insufficiency. Pulmonary artery systolic pressure is 29 mmHg. Aortic Valve Trisinus/trileaflet aortic valve. Pulmonic Valve Normal pulmonic valve. Great Vessels Normal aortic root. The pulmonary artery is normal size. Normal inferior vena cava. Pericardium/Pleural No pericardial effusion. Medication Definity0.5ml given slow IV push to enhance endocardial definition. MMode/2D Measurements AND Calculations LVIDd: 6.3 cm IVSd: 1.1 cm Ao root diam: 3.3 cm LVIDs: 5.9 cm LVPWd: 1.1 cm RVDd: 5.2 cm FS: 6.5 % LAV(MOD-bp): 73.0 ml LVAd ap4: 47.6 cm2 SV(MOD-sp4): 34.4 ml LAV(MOD-bp) Indexed: 30.3 ml/m2 EDV(MOD-sp4): 191.8 ml LAV(MOD-sp2): 60.6 ml EDV(sp4-el): 200.8 ml LAV(MOD-sp4): 70.3 ml LVAs ap4: 41.9 cm2 ESV(MOD-sp4): 157.4 ml ESV(sp4-el): 160.4 ml EF(MOD-sp4): 17.9 % EF(sp4-el): 20.1 % SV(sp4-el): 40.4 ml LA A4 area: 22.6 cm2 LA dimension(2D): 4.8 cm RA A4 area: 21.4 cm2 Doppler Measurements AND Calculations MV E max edouard: 102.1 cm/sec Ao V2 max: 102.1 cm/sec LV V1 max: 75.7 cm/sec Ao max P.3 mmHg LV V1 max P.4 mmHg Ao V2 mean: 75.1 cm/sec Ao mean P.6 mmHg Ao V2 VTI: 14.9 cm PA V2 max: 65.1 cm/sec TR max edouard: 256.4 cm/sec TR max P.3 mmHg Interpretation Summary Severely dilated left ventricle. The estimated ejection fraction is 15 %. Unable to assess diastolic dysfunction due to arrhythmia. The left atrium is mildly enlarged. The right atrium is mildly enlarged. Moderate (2+) eccentric mitral valve insufficiency. Ordering Physician: Elias Stein Referring Physician: Elias Stein Performed By: Marielos Torre, LONNIE, RVT 06/15/18 1320 Date Ino Celaya MD CC: No Primary Care Physician; Elias Stein DO Date Dictated: 06/15/18 1009 Date Transcribed: 06/15/18 1320 Commutator Presser: Signed BEDSIDE GLUCOSE Collected: 06/15/2018 Status: F Source: [place] 11:03 AM [facility] REPOSITORY TYPE CODE TESTS RESULT OUT OF REFERENCE UNITS RANGE LAB L501.080 70-110 mg/dL High BEDSIDE GLU 162 Result Comment: MANAGEMENT OF PATIENT CARE PER NURSING PROTOCOL Performed By: #### L501.080 #### [facility] Point of Care [address] [place], [place] [address] BEDSIDE GLUCOSE Collected: 06/15/2018 Status: F Source: [place] 6:43 AM [facility] REPOSITORY TYPE CODE TESTS RESULT OUT OF REFERENCE UNITS RANGE LAB L501.080 70-110 mg/dL High BEDSIDE GLU 161 Result Comment: MANAGEMENT OF PATIENT CARE PER NURSING PROTOCOL Performed By: #### L501.080 #### [facility] Point of Care [address] [place] [address] HH, HEMOGLOBIN AND Collected: 06/15/2018 Status: F Source: [place] HEMATOCRIT 5:50 AM [facility] REPOSITORY TYPE CODE TESTS RESULT OUT OF RANGE REFERENCE UNITS LAB L100.1300 13.0-16.5 g/dl Normal HGB 13.2 LAB L100.1400 40-54 % Normal HCT 40.1 Performed By: #### L100.0600 #### [facility] [address] [place], [address] BASIC METABOLIC Collected: 06/15/2018 Status: F Source: [place] PROFILE (BMP) 5:50 AM [facility] REPOSITORY TYPE CODE TESTS RESULT OUT OF RANGE REFERENCE UNITS LAB L501.0100 74-106 mg/dL High GLU 143 Result Comment: Fasting Glucose result greater than or equal to 126 mg/dL suggests DIABETES MELLITUS per A.D.A. criteria. Please note revised GLUCOSE reference range effective 2017. LAB L501.1000 7-18 mg/dL High BUN 25 LAB L501.1100 0.70-1.30 mg/dL High CREAT,SERUM 1.75 Result Comment: The validity of the calculated GFR AND GFRAA in patients over 70 years has not been determined. Clinical correlation is essential. LAB L501.1110 >60 mL/min Low EST GFR 43 Result Comment: Non- GFR Calc LAB L501.1115 >60 mL/min Low EST GFR - AA 52 Result Comment: GFR Calc LAB L501.1255 ml/min Normal Estimated CRCL 60.21 LAB L501.1300 10-20 RATIO Normal BUN/CRE 14.3 LAB L501.2200 8.5-10 mg/dL Low .1 CA 7.8 LAB L501.5300 136-14 mmol/L Normal 5 NA 137 LAB L501.5600 3.5-5. mmol/L Normal 1 K 3.6 LAB L501.5900 98-107 mmol/L Normal CL 99 LAB L501.6100 21.0-3 mmol/L Normal 2.0 CO2 26.0 LAB L501.6200 5-15 Normal GAP 12 Performed By: #### L500.2500 #### [facility] [address] [place], [address] CHEST 1 VIEW Observed: 06/15/2018 Status: F Source: [place] (PORTABLE) 12:00 AM [facility] REPOSITORY [facility] Imaging Services [address] [place] [address] Chest 1 View (Portable) MR#: [id number] Acct: [id number] Name: ARNOLD MEEHAN Rep #: [id number] : 1960 M 57 From: Ihsan Mccabe MD PCP: Care Physician, No Primary Status: ADM IN Study: Chest 1 View (Portable) Date of Exam: 06/15/18 Exam# [id number] Ordering Dr: Elias Stein DO STUDY: X-RAY CHEST REASON FOR EXAM: Male, 57 years old. CHF TECHNIQUE: 1 view COMPARISON: June 14, 2018 FINDINGS: There continues to be an implantable loop recorder over the left hemithorax. There is cardiomegaly with congestive failure, bilateral pleural effusions and compressive atelectatic changes in the lung bases. There has not been much change since yesterday's study.. Normal visualized thoracic spine. Normal visualized ribs, clavicles, and shoulders. There is no demonstrated abnormality of the visualized soft tissue structures of the upper abdomen. RAD/Chest 1 View (Portable) IMPRESSION: Cardiomegaly with congestive failure, bilateral pleural effusions and compressive atelectatic changes in the lung bases Electronically Signed: Ihsan Mccabe MD at 3:36 EST Tel , Service support , CC: No Primary Care Physician; Elias Stein DO Commutator Presser: Signed HH, HEMOGLOBIN AND Collected: 06/14/2018 Status: F Source: [place] HEMATOCRIT 10:24 PM [facility] REPOSITORY TYPE CODE TESTS RESULT OUT OF RANGE REFERENCE UNITS LAB L100.1300 13.0-16.5 g/dl Normal HGB 13.2 LAB L100.1400 40-54 % Low HCT 39.5 Performed By: #### L100.0600 #### [facility] [address] [place], [address] BEDSIDE GLUCOSE Collected: 06/14/2018 Status: F Source: [place] 9:12 PM [facility] REPOSITORY TYPE CODE TESTS RESULT OUT OF REFERENCE UNITS RANGE LAB L501.080 70-110 mg/dL High BEDSIDE GLU 200 Result Comment: MANAGEMENT OF PATIENT CARE PER NURSING PROTOCOL Performed By: #### L501.080 #### [facility] Point of Care [address] [place] [address] HISTORY AND PHYSICAL Observed: 06/14/2018 Status: F Source: [place] EXAM 7:12 PM [facility] REPOSITORY [facility] Medical Records Department [address] [place] [address] History and Physical 06/14/18 1855 MR#: [id number] Acct: [id number] Name: ARNOLD MEEHAN Rep #: [id number] : 1960 57 From: Elias Stein DO PCP: Care Physician, No Primary Status: ADM IN Location: [place] [address] Problem List (1) Shortness of breath Status: Acute (2) Heart palpitations Status: Acute History of Present Illness Date of Admission: 06/14/18 Chief Complaint: Palpitations, shortness of breath, edema The patient is a 57 year old M was seen in the emergency room at [facility] with a chief complaint of shortness of breath which has progressed over the last 3 days, this was accompanied by an irregular heartbeat and generalized swelling that he is noticed has increased over the last 2 months. Patient also stated that 3 days ago he had some chest discomfort which lasted approximately an hour but he was vague about what precipitated this chest discomfort. He stated that it was like a ache and it radiated into his right shoulder and right chest area. Patient has a past history of coronary artery disease and in 2006 he had 4 stents placed in [place]. Patient also has a history of an event recorder which was placed in 2007 but this was removed subsequently. He has not been compliant with follow-up medical care and has not seen a helicopter pilot in several years, is also not seen a general practitioner in several years-he states this is due to financial reasons. Patient has been living in [place] for the past 2 years, his [id number]-hbw was present at the time of my examination. Evaluation in the emergency room feel the patient to be in atrial fib with a rapid ventricular response at 151, patient's pulse ox on room air was 96%. Patient had +3 pitting edema to both lower extremities, he was alert and did not appear to be in severe distress. Chest x-ray was obtained which showed cardiomegaly and CHF with bilateral pleural effusions. Hemoglobin was normal, patient's white blood cell count was normal, platelet count was 114,000. Creatinine was elevated at 1.47, troponin was slightly elevated at 1.29. TSH was elevated at 4.59. EKG showed atrial fibrillation with a rapid ventricular response of 163 and no ischemic changes. She was given IV Cardizem for rate control in the emergency room, before he was admitted to the PCU today, patient had a melanotic stool which was positive for blood. Patient will be kept on IV Cardizem and be seen by cardiology, he will not be anticoagulated at this time and he will not receive aspirin. Patient's cardiac enzymes will be cycled, I will place him on IV Lasix, and JAMES inhibitor, and repeat his chest x-ray tomorrow. Past Medical History Allergies Penicillins [PCN] Allergy (Verified 06/14/18 10:19) Rash Home Medications: Ambulatory Orders Medication Instructions Recorded NK 06/14/18 Surgical History: appendectomy, tonsillectomy, - - Coronary artery stent placement 2006, left knee reconstruction secondary to injury from football Psychiatric History: No pertinent psych hx Lives: With Family Smoking Status: Former smoker Tobacco Use: Non-smoker Alcohol: Occasional Drugs: None - *Family History Maternal History Items: Cancer - Stomach cancer, Diabetes Paternal History Items: Heart Disease - NM age 58 Review of Systems Constitutional: Reports: Malaise, Weakness, Weight Change, Fatigue. Denies: Anorexia, Chills, Fever, Night Sweats Eyes: Denies: Blurred vision, Cataracts, Conjunctivae Inflammation, Double vision, Drainage HEENT: Denies: Difficulty Swallowing, Dysphasia, Ear Pain, Eye Pain, Head Aches, Hearing Changes, Nasal bleeding, Nasal Congestion, Post Nasal Drip Cardiovascular: Reports: Chest Pain - History of chest pain 3 days ago as outlined in chief complaint, Edema - Increased edema over the last 2 months, Orthopnea, Palpitations, Paroxysmal Noc. Dyspnea. Denies: Claudication, Chest Pressure, Chest Tightness Respiratory: Reports: Shortness of Breath, Shortness of breath at rest, Shortness of breath upon exertion. Denies: Cough, Hemoptysis, Pleuritic Pain, Sputum production, Wheezing Gastrointestinal: Denies: Abdominal Pain, Constipation, Diarrhea, Hematemesis, Hematochezia, Nausea, Melena, Vomiting Genitourinary: Denies: Dysuria, Frequency, Hematuria, Hesitancy, Incontinence, Nocturia, Urgency Musculoskeletal: Denies: Back Pain, Foot Pain, Hand Pain, Joint Pain, Joint stiffness, Joint swelling, Joint Tenderness, Leg Pain Skin: Denies: Dryness, Jaundice, Pruritis, Rash Neurological: Denies: Blurred vision, Double vision, Change in Speech, Slurred speech, Difficulty swallowing, Focal weakness, Headaches, Numbness, Tingling Psychiatric: Denies: Anxiety, Depression, Homicidal Ideations, Suicidal Ideations Endocrine: Denies: Change in Body Habitus, Heat/ Cold Intolerance, Polydipsia, Polyuria Hematologic/ Lymphatic: Denies: Adenopathy, Anemia, Easy Bruising, Easy Bleeding, Petechiae, Purpura VTE Information - Inpt Only VTE Present on Admission: No VTE Mechan Device Prophylaxis: SCD's VTE Pharm Prophylaxis ordered?: No Reason prophylaxis not ordered:: Medical Contraindication - Melanotic stools Patient Problems: Active and Suspected Problems Shortness of breath (Acute) Heart palpitations (Acute) - Physical Exam General: Alert, Oriented x3, Cooperative, No apparent distress, Well developed, Well nourished HEENT: Atraumatic, PERRLA, EOMI, Normocephalic Oral: Moist Mucosa Neck: Supple, No JVD, Negative Carotid Bruits, No Nuchal Rigidity, Trachea Midline, Thyroid Normal Size and Texture Lungs: No rhonchi, No rales, Diminished - Diminished breath sounds bilaterally Cardiovascular: No murmurs, PMI Normal, Irregular Rate, No rub noted Abdomen: Bowel Sounds Present, Soft, Non Tender, Non-Distended, Obese Extremities: Capillary Refill Less than 3 Seconds, Edema - +3 mm pitting edema is noted over both lower legs Skin: No rashes, No breakdown Musculoskeletal: No Tenderness to Palpation of Joints or Extremities Neurological: Cranial nerves II-XII grossly intact, Neuro grossly intact, Muscle tone normal, Sensory exam intact to light touch and pain, Coordination normal Psych/Mental Status: Normal Affect, Appropriate, Alert and oriented to time, place, person, mood and affect Vital Signs Temp Pulse Resp BP Pulse Ox 98.3 F 98 23 H 100/67 96 06/14/18 18:40 06/14/18 18:40 06/14/18 18:40 06/14/18 18:40 06/14/18 18:40 Oxygen Flow Rate (L/min) 2 Oxygen Delivery Method Nasal Cannula Weight: 140.614 kg Body Mass Index (BMI) 35.8 Intake and Output for Last 24 Hours Intake Total 470 / 470 Output Total 200 / 200 Balance 270 / 270 Microbiology Past 72 Hours 06/14/18 13:30 Stool Occult Blood (CONG) - Final Stool Occult Blood Positive Laboratory Tests Past 24 Hrs WBC 5.0 RBC 4.66 Hgb 14.6 WBC RBC POC Glucose POC Glucose 170 H Assessment/Plan All Active Problems Shortness of breath (Acute) Heart palpitations (Acute) #1 new onset atrial fibrillation with rapid ventricular response- patient will be admitted to PCU, he will be maintained on a Cardizem drip, he would be seen by cardiology, he will be monitored. Patient will not undergo anticoagulation at this time due to melanotic stools #2 acute systolic congestive heart failure-patient's son who I talked with by phone states that the patient has had impaired pumping function before but he would not give me a percentage, patient will have an echocardiogram tomorrow. I contacted his former helicopter pilot office but he has not seen his helicopter pilot in 11 years, they were supposed to be forwarding information to PCU however this will probably of minimal use. #3 melena-suspect upper GI bleed, patient takes aspirin 325 a day, it is the only medication currently takes. Patient will be maintained on a PPI, he will probably require an EGD or an upper GI during this admission. H AND H will be rechecked #4 atherosclerotic heart disease-again patient has not been taking any medications except for aspirin over the last 2 years. He may require cardiac catheterization but due to his melena, the procedure cannot be undertaken at this time. #5 elevated troponins-possibly non-STEMI type II #6 noncompliance with medical regimen-I stressed to the patient that he must remain on medications due to his heart disease and diabetes, he seems to understand this #7 type 2 diabetes-patient was on metformin in the past, he has never been on insulin, will monitor his blood sugars and administer insulin as required #8 chronic kidney disease stage III probably secondary to type 2 diabetes, patient's BMP will be rechecked tomorrow #9 elevated TSH-significance is unknown, patient's T3 and T4 will be checked I discussed his medical condition with his son by phone and his [id number] who was present at the time of my examination today. Code Visit Inpatient E AND M: [id number] Init Hosp L3 06/14/181911 <Electronically signed by Elias Stein DO> Date Elias Stein DO Cosigner Signature: Date (if applicable) CC: No Primary Care Physician; Elias Stein DO Signed EMERGENCY DEPARTMENT Observed: 06/14/2018 Status: F Source: [place] SUMMARY 6:14 PM [facility] REPOSITORY [facility] Medical Records Department [address] [place] [address] Emergency Department Summary 06/14/18 1010 MR#: [id number] Acct: [id number] Name: ARNOLD MEEHAN Rep #: [id number] : 1960 57 From: Lewis Orlando MD PCP: Care Physician, No Primary Status: ADM IN - ER Visit Summary Date of Service: 06/14/18 Chief Complaint: Shortness of breath History of Present Illness: The patient is a 57 M history of CAD with 4 cardiac stents. Prior NM. Insulin-dependent diabetes but is out of insulin. History of hypertension. Patient states the last 3 days he has had increasing shortness of breath and swelling of his lower extremities. Subjective fever and chills. Denies any nausea, vomiting or diarrhea. No melena. He currently has no primary care physician locally is supposed to be on a host of medications and is on none of them. States he is never been in A. fib before. Physical Examination: Middle-aged male. Vital signs 149/90. Heart rate of 151 and irregular. On the monitor when I am in the room his heart rates 1. Pulse ox 96% on room air no hypoxia. H EENT exam unremarkable. Neck nontender. No JVD. Lungs clear to auscultation bilaterally. Heart irregularly irregular rate of 161 no murmur. Cardiac exam consistent with A. fib RVR. Abdomen soft nontender. Mild edema. Patient moves all 4 extremities. Normal motor strength. He has 2+ pitting edema both lower extremities. Neurologically is awake and alert. With no focal motor deficits. Test Results: EKG A. fib RVR rate of 163. Chest x-ray shows cardiomegaly with CHF and bilateral pleural effusions. CBC shows a white count of 5. Hemoglobin 14. Low platelet count of 114,000. Lites unremarkable creatinine 1.47. PT/INR normal. Troponin slightly elevated 0.129. And TSH is elevated at 4.59. Emergency Department Course and Treatment: Patient had new onset A. fib RVR. Treatment Plan: Initially given IV Cardizem which is decreased his heart rate but it still above 120. He will be given a second dose of Cardizem and most likely be started on a Cardizem drip. He will also be given IV Lasix for his congestive heart failure. I have already spoken to the hospitalist about the PCU admission. Repeat exam patient is resting comfortably. Disposition: Admitted Impression: Acute dyspnea New onset A. fib RVR Acute congestive heart failure and bilateral pleural effusions. Thrombocytopenia. Abnormal troponin Elevated TSH needs further evaluation History of prior NM with 4 cardiac stents. This note was generated with [employer] dictation software. It may contain incorrect words, spelling, and punctuation that were not noted in review of the chart prior to signing ED Disposition - Plan for ED Patient: Chief Complaint: Shortness of Breath Referrals: NOT,DEFINED [NON-STAFF] - What to do if you have Problems For any increased pain, shortness of breath, bleeding, nausea or vomiting, chest pain, or any unexpected problems, contact your Primary Care Provider. Call [facility] ([phone]) or report to the closest Emergency Room. Call 911 if necessary. 06/14/18 2355 <Electronically signed by Lewis Orlando MD> Date Lewis Mcgrath Signature (If Indicated): Date CC: No Primary Care Physician BEDSIDE GLUCOSE Collected: 06/14/2018 Status: F Source: [place] 5:06 PM [facility] REPOSITORY TYPE CODE TESTS RESULT OUT OF REFERENCE UNITS RANGE LAB L501.080 70-110 mg/dL High BEDSIDE GLU 170 Result Comment: MANAGEMENT OF PATIENT CARE PER NURSING PROTOCOL Performed By: #### L501.080 #### [facility] Point [facility] Care [address] [place], [place] [id number] TROPONIN-I Collected: 06/14/2018 Status: F Source: [place] 4:40 PM [facility] REPOSITORY Order Comment: 'TROP' Serial specimen #1, #2 or #3: 3 TYPE CODE TESTS RESULT OUT OF RANGE REFERENCE UNITS LAB L501.4010 <0.045 ng/mL High 0.138 TROPONIN-I Result Comment: TROPONIN-I EXPECTED VALUES <0.045 Negative 0.045 - 0.590 Consistent with Cardiac Damage > OR = 0.600 Critical Value Not every elevated troponin is indicative of NM. These values should be used with clinical judgement in examining the patient's clinical picture for diagnosis. To establish a diagnosis of NM versus myocardial injury, there must be a demonstrated rise and/or fall in the troponin values, in addition to ischemic symptoms, EKG changes, new regional wall motion abnormality, and/or angiographical evidence. PLEASE NOTE: REFERENCE RANGES EDITED 17 Performed By: #### L501.4010, L501.00487, L506.0400 #### [facility] [address] [place], [place], [id number] MAGNESIUM Collected: 06/14/2018 Status: F Source: [place] 4:40 PM [facility] REPOSITORY TYPE CODE TESTS RESULT OUT OF RANGE REFERENCE UNITS LAB L501.5200 1.6-2.6 mg/dL Normal MG 1.6 Performed By: #### L501.5200, L501.5600 #### [facility] [address] [place], [address] POTASSIUM Collected: 06/14/2018 Status: F Source: JEIMY 4:40 PM [facility] REPOSITORY TYPE CODE TESTS RESULT OUT OF RANGE REFERENCE UNITS LAB L501.5600 3.5-5.1 mmol/L Normal K 4.0 Performed By: #### L501.5200, L501.5600 #### [facility] [address] [place], [address] FREE T3 Collected: 06/14/2018 Status: F Source: JE[place] 2:04 PM [facility] REPOSITORY Order Comment: 'TROP' Serial specimen #1, #2 or #3: 2 TYPE CODE TESTS RESULT OUT OF RANGE REFERENCE UNITS LAB L501.16012 2.18-3.98 pg/mL Low FREE T3 2.0 Performed By: #### L501.4010, L501.95680, L506.0400 #### [facility] [address] [place], [address] T4 FREE DIRECT Collected: 06/14/2018 Status: F Source: [place] 2:04 PM [facility] REPOSITORY Order Comment: 'TROP' Serial specimen #1, #2 or #3: 2 TYPE CODE TESTS RESULT OUT OF RANGE REFERENCE UNITS LAB L506.0400 0.76-1.46 ng/dL Normal T4 FREE 1.08 DIRECT Performed By: #### L501.4010, L501.72593, L506.0400 #### [facility] [address] [place], [address] Observed: 06/14/2018 Status: F Source: JEIMY STOOL OCCULT BLOOD 1:30 PM [facility] IFOB REPOSITORY Order Date: 06/14/18 STOB iFOB Occult Blood Positive ORGANISM 1: OCCULT BLOOD POSITIVE Performed By: #### M100.7900 #### [facility] [address] [place], [address] CBC W/DIFF, AUTOMATED Collected: 06/14/2018 Status: F Source: [place] 10:12 AM [facility] REPOSITORY TYPE CODE TESTS RESULT OUT OF RANGE REFERENCE UNITS LAB L100.1000 4.4-11.0 K/mm3 Normal WBC 5.0 LAB L100.1200 4.6-6.2 M/mm3 Normal RBC 4.66 LAB L100.1300 13.0-16.5 g/dl Normal HGB 14.6 LAB L100.1400 40-54 % Normal HCT 44.0 LAB L100.1500 80-94 fL High MCV 94.4 LAB L100.1600 27.0-32.0 pg Normal MCH 31.3 LAB L100.1700 32-36 g/gl Normal MCHC 33.2 LAB L100.1810 11.6-14.6 % Normal RDW CV 14.0 LAB L100.1820 35.1-43.9 fl High RDW SD 46.4 LAB L100.1900 150-450 K/mm3 Low PLT 114 LAB L100.2000 6.2-12.0 fl Normal MPV 9.5 LAB L100.2100 47-70 % High NEUT% 73.8 LAB L100.2200 19-41 % Low LY% 12.9 LAB L100.2300 0-10 % High MONO% 12.5 LAB L100.2400 0-5 % Normal EO% 0.2 LAB L100.2500 0-1 % Normal BASO% 0.4 LAB L100.2550 0.0-0.9 % Normal IM GRAN % 0.200 Result Comment: IG% - Immature Granulocytes (promyelocytes, myelocytes and metamyelocytes) > 1% indicates that a LEFT SHIFT is Present. LAB L100.2620 2.0-7.7 X10 3/uL Normal Absolute Neut 3.7 LAB L100.2720 0.83-4.51 X10 3/ul Low Absolute Lymph 0.64 Performed By: #### L100.0100 #### [facility] [place], [address] PROTHROMBIN TIME W/INR Collected: 06/14/2018 Status: F Source: [place] 10:12 AM [facility] REPOSITORY TYPE CODE TESTS RESULT OUT OF RANGE REFERENCE UNITS LAB L300.4150 11.7-14.9 SECONDS High PROTIME 15.0 LAB L300.4200 Normal INR 1.2 Performed By: #### L300.3900 #### [facility] [address] [place], [place], [address] BASIC METABOLIC Collected: 06/14/2018 Status: F Source: [place] PROFILE (BMP) 10:12 AM [facility] REPOSITORY TYPE CODE TESTS RESULT OUT OF RANGE REFERENCE UNITS LAB L501.0100 74-106 mg/dL High GLU 154 Result Comment: Fasting Glucose result greater than or equal to 126 mg/dL suggests DIABETES MELLITUS per A.D.A. criteria. Please note revised GLUCOSE reference range effective 2017. LAB L501.1000 7-18 mg/dL Normal BUN 18 LAB L501.1100 0.70-1.30 mg/dL High CREAT,SERUM 1.47 Result Comment: The validity of the calculated GFR AND GFRAA in patients over 70 years has not been determined. Clinical correlation is essential. LAB L501.1110 >60 mL/min Low EST GFR 52 Result Comment: Non- GFR Calc LAB L501.1115 >60 mL/min Normal EST GFR - AA 63 Result Comment: GFR Calc LAB L501.1255 ml/min Normal Estimated CRCL 50.03 LAB L501.1300 10-20 RATIO Normal BUN/CRE 12.2 LAB L501.2200 8.5-10 mg/dL Low .1 CA 7.9 LAB L501.5300 136-14 mmol/L Low 5 NA 135 LAB L501.5600 3.5-5. mmol/L Normal 1 K 4.1 LAB L501.5900 98-107 mmol/L Low CL 97 LAB L501.6100 21.0-3 mmol/L Normal 2.0 CO2 25.0 LAB L501.6200 5-15 Normal GAP 13 Performed By: #### L500.2500, L501.4010, L501.9520 #### [facility] [address] [place], [place], [id number] TROPONIN-I Collected: 06/14/2018 Status: F Source: [place] 10:12 AM [facility] REPOSITORY TYPE CODE TESTS RESULT OUT OF RANGE REFERENCE UNITS LAB L501.4010 <0.045 ng/mL High 0.129 TROPONIN-I Result Comment: TROPONIN-I EXPECTED VALUES <0.045 Negative 0.045 - 0.590 Consistent with Cardiac Damage > OR = 0.600 Critical Value Not every elevated troponin is indicative of NM. These values should be used with clinical judgement in examining the patient's clinical picture for diagnosis. To establish a diagnosis of NM versus myocardial injury, there must be a demonstrated rise and/or fall in the troponin values, in addition to ischemic symptoms, EKG changes, new regional wall motion abnormality, and/or angiographical evidence. PLEASE NOTE: REFERENCE RANGES EDITED 17 Performed By: #### L500.2500, L501.4010, L501.9520 #### [facility] [address] [place], [address] THYROID STIM HORMONE Collected: 06/14/2018 Status: F Source: [place] (TSH) 10:12 AM [facility] REPOSITORY TYPE CODE TESTS RESULT OUT OF RANGE REFERENCE UNITS LAB L501.9520 0.358-3.74 uIU/mL High TSH 4.59 Performed By: #### L500.2500, L501.4010, L501.9520 #### [facility] [address] [place], [address] CHEST 1 VIEW Observed: 06/14/2018 Status: F Source: [place] (PORTABLE) 10:02 AM [facility] REPOSITORY [facility] Imaging Services [address] [place] [address] Chest 1 View (Portable) MR#: [id number] Acct: [id number] Name: ARNOLD MEEHAN Rep #: [id number] : 1960 M 57 From: Frantz Gaviria MD PCP: Care Physician, No Primary Status: REG ER Study: Chest 1 View (Portable) Date of Exam: 06/14/18 Exam# [id number] Ordering Dr: Lewis Orlando MD STUDY: X-RAY CHEST REASON FOR EXAM: Male, 57 years old. Chest pain. TECHNIQUE: Single AP portable view of the chest. COMPARISON: None. FINDINGS: EKG electrodes are seen. A loop recorder device is seen overlying the medial left hemithorax. There are small bilateral pleural effusions with bibasilar atelectasis superimposed on CHF. There is borderline cardiomegaly. Normal mediastinum and aniceto. Normal visualized pulmonary arteries. Normal visualized aortic arch and descending thoracic aorta. Normal visualized thoracic spine. Normal visualized ribs, clavicles, and shoulders. There is no demonstrated abnormality of the visualized soft tissue structures of the upper abdomen. RAD/Chest 1 View (Portable) IMPRESSION: Small bilateral pleural effusions with bibasilar atelectasis superimposed on mild degree of CHF. Electronically Signed: Frantz Gaviria MD at 10:49 EST Tel [phone], Service support , CC: No Primary Care Physician; Lewis Orlando MD Commutator Presser: Signed ALLERGIES ALLERGIES DATE TYPE / CODE NAME / CODE REACTION SEVERITY SOURCE 06/27/2018 Drug Penicillins/ Rash Unknown [facility] Allergy/4160 [id number]([facility] [address](SNOMED XNORM) Repository CT) ENCOUNTERS ENCOUNTERS ADMIT/DISCHARGE ACCOUNT ADMITTING ENCOUNTER LOCATION SOURCE NUMBER CLASS 08/30/2018 [id number] Ambulatory Jeimy [place] 7 [facility] ing:CLSP Repository 07/25/2018 [id number] Ambulatory Jeimy [place] 5 [facility] ing:CLSP Repository 07/25/2018 [id number] Ambulatory BMSBuilding:W [place] 2 [facility] Repository 06/27/2018 [id number] Ambulatory [place] 7 [facility] ing:LAB Repository 06/27/2018/ [id number] Ambulatory BMSBuilding:B [place] [facility] 4 [facility] Repository 06/19/2018 [id number] Ambulatory BMSBuilding:W [place] 3 [facility] Repository 06/14/2018/ [id number] [place], Inpatient Jeimy Jeimy 8 7 [place] Encounter [facility] Hospital ing:PCURoom: Repository [id number]: 1 06/14/2018 [id number] [place], Ambulatory BMSBuilding:B [place] 3 [place].[facility] Repository 06/14/2018 [id number] [place], Ambulatory BMSBuilding:B [place] 7 [place] [facility] Repository 06/14/2018 [id number] [place], Ambulatory BMSBuilding:B [place] 0 [place] [facility] Repository 06/14/2018 [id number] [place], Ambulatory BMSBuilding:B [place] 5 [place] [facility] Repository 06/14/2018 [id number] [place]sky, Ambulatory BMSBuilding:B [place] 6 [place] [facility] Repository 06/14/2018 [id number] [place], Ambulatory BMSBuilding:B [facility] 3 [place] [facility] 06/14/2018 [id number] [place], Ambulatory BMSBuilding:B [place] 0 [place] [facility] Repository 06/14/2018 [id number] Tereletsky, Ambulatory BMSBuilding:B [place] 3 [place] [facility] Repository 06/14/2018 [id number] [place]sky, Ambulatory BMSBuilding:B [place] 9 [place] MS.[facility] Repository 06/14/2018 [id number] Tereletsky, Ambulatory BMSBuilding:B [place] 5 [place] [facility] Repository 06/14/2018 [id number] [place]sky, Ambulatory BMSBuilding:B [place] 0 [place] MS.[facility] Repository 06/14/2018 [id number] [place], Ambulatory BMSBuilding:B [place] 0 [place] [facility] 06/14/2018 [id number] [place]reletsky, Ambulatory BMSBuilding:B [place] 4 [place] [facility] Repository 06/14/2018 [id number] [place]sky, Ambulatory BMSBuilding:B [place] 5 [place] [facility] Repository 06/14/2018/ [id number] Ambulatory BMSBuilding:W Je[place] 8 2 [facility] Repository PAYERS PAYERS ENCOUNTER GUARANTOR PAYER SUBSCRIBER SOURCE 08/30/2018 ARNOLD Yi Primary Insurance:[place] ARNOLD Yi [place] [id number] [facility]: [facility] [address] Number: [id number], [id number] [address]Bti: Date:[id number] SERVICE [id number] () [place], [place] [address]UZ: [phone] [id number] 08/30/2018 Secondary NOT GIVENUNK [place] Insurance:SELF PAY [facility] Number: Effective Repository Date:2018-08-04 07/25/2018 ARNOLD Yi Primary ARNOLD Yi [place] [id number] CR Insurance:[facility]: [address] Number: [id number] [address]Ekg: [id number] Repository Date:2018-07-08 () 07/25/2018 Secondary NOT GIVENUNK [place] Insurance:SELF PAY [facility] Number: Effective Repository Date:2018-07-08 07/25/2018 ARNOLD Yi Primary ARNOLD Yi [place] [id number] CR [facility]: [address] Number: [id number] Comprehensive Health Center [address]Sse: [id number] Repository Date:2018-07-08 () 07/25/2018 Secondary NOT GIVENUNK [place] Insurance:SELF PAY [facility] Number: Effective Repository Date:2018-07-25 06/27/2018 ARNOLD iY Primary ARNOLD Yi [place] [id number] CR Insurance:MEDICAIDHel[facility]. Simpson Rehabilitation HospitalELLB: [address] icy Number: [id number] Comprehensive Health Center [address]Vzd: [id number] Repository Date:2018-06-27 () 06/27/2018 Secondary NOT GIVENUNK [place] Insurance:SELF PAY [facility] Number: Effective Repository Date:2018-06-27 06/27/2018 ARNOLD Yi Primary Insurance:[place] ARNOLD Yi [place] [id number] CR [facility] Number: GOODSELLDOB: [address] [id number] Comprehensive Health Center [address]Wct: Date:[id number] BOX Repository [address] [place], () [place] [address]GB: 06/27/2018 Secondary ARNOLD Yi [place] Insurance:MEDICAIDPol GOODSELLDOB: [facility] Number: [id number] Hospital [id number] Repository Date:2018-06-24 06/27/2018 Tertiary NOT GIVENUNK [place] Insurance:SELF PAY [facility] Number: Effective Repository Date:2018-06-27 06/19/2018 ARNOLD C Primary NOT GIVENUNK [place] [id number] CR Insurance:SELF PAY [address] [address]Prr: Number: Effective Repository Date:2018-06-19 () 06/14/2018 ARNOLD C Primary NOT GIVENUNK [place] [id number] CR Insurance:SELF PAY [address] [address]Ikm: Number: Effective Repository Date:2018-06-14 () 06/14/2018 ARNOLD C Primary NOT GIVENUNK Jemiy [id number] CR Insurance:SELF PAY [address] [id number]: Number: Effective Repository Date:2018-06-14 () 06/14/2018 ARNOLD C Primary NOT GIVENUNK Jeimy [id number] CR Insurance:SELF PAY [address] [address]Pdy: Number: Effective Repository Date:2018-06-14 () 06/14/2018 ARNOLD C Primary NOT GIVENUNK [place] [id number] CR Insurance:SELF PAY [address] [address]Ouq: Number: Effective Repository Date:2018-06-14 (HP) 06/14/2018 ARNOLD C Primary NOT GIVENUNK [place] [id number] CR Insurance:SELF PAY [address] [place] [address]Ioe: Number: Effective Repository Date:2018-06-14 (HP) 06/14/2018 ARNOLD C Primary NOT GIVENUNK Jeimy [id number] CR Insurance:SELF PAY [address] [place] [address]Gfb: Number: Effective Repository Date:2018-06-14 (HP) 06/14/2018 ARNOLD C Primary NOT GIVENUNK Jeimy [id number] CR Insurance:SELF PAY [address] [place] [address]Bta: Number: Effective Repository Date:2018-06-14 () 06/14/2018 ARNOLD C Primary NOT GIVENUNK [place] [id number] CR Insurance:SELF PAY [address] [place] [address]Rvl: Number: Effective Repository Date:2018-06-14 () 06/14/2018 ARNOLD C Primary NOT GIVENUNK [place] [id number] CR Insurance:SELF PAY [address] [place] [address]Bxp: Number: Effective Repository Date:2018-06-14 () 06/14/2018 ARNOLD C Primary NOT GIVENUNK [place] [id number] CR Insurance:SELF PAY [address] [place] [address]Sym: Number: Effective Repository Date:2018-06-14 (HP) 06/14/2018 ARNOLD C Primary NOT GIVENUNK [place] [id number] CR Insurance:SELF PAY [address] [place] [address]Bwf: Number: Effective Repository Date:2018-06-14 () 06/14/2018 ARNOLD C Primary NOT GIVENUNK [place] [id number] CR Insurance:SELF PAY [place] [id number]: Number: Effective Repository Date:2018-06-14 () 06/14/2018 ARNOLD Yi Primary NOT GIVENUNK Jeimy [id number] CR Insurance:SELF PAY [place] [id number]: Number: Effective Repository Date:2018-06-14 () 06/14/2018 ARNOLD C Primary NOT GIVENUNK Je[place] [id number] CR Insurance:SELF PAY [place] [id number]: Number: Effective Repository Date:2018-06-14 (HP) 06/14/2018 ARNOLD Yi Primary NOT GIVENUNK Jeim[place] [id number] CR Insurance:SELF PAY [place] [id number]: Number: Effective Repository Date:2018-06-14 () 06/14/2018 ARNOLD Yi Primary NOT GIVENUNK Jeim[place] [id number] CR Insurance:SELF PAY [place] [id number]: Number: Effective Repository Date:2018-06-14 ()
== END ==
PROVIDERS: Referring Provider Internal Medicine Cardiovascular Disease; Visit Provider Internal Medicine Cardiovascular Disease
DX: Z01.818 Encounter for other preprocedural examination (principal)
CPT/HCPCS: 36415; 84132; 93005